=== PATIENT | female | born 1950 | race Caucasian/White ===

== ENCOUNTER 2016-10-19 09:22 | Day surgery (SDC) | payer MEDICARE ==
[~2016-10-19] VITALS: Ht 165.1 cm; Wt 61.4 kg
[2016-10-19 09:41] VITALS: BP 165/96; PULSE 109; RESP 20; TEMP 98.3; O2SAT 96
[2016-10-19] MEDS ORDERED: SODIUM CHLOR 0.9% 1000 ML IV SCH (10:00)
[2016-10-19] MEDS ORDERED: METO25TA3 PO (10:04)
[2016-10-19 10:29] LABS: APTT (PATIENT) 27.6 SEC (24.3-30.1); INTERNATIONAL NORMALIZED RATIO 0.9 RATIO; PROTHROMBIN TIME - PATIENT 10.1 SEC (9.8-11.6)
[2016-10-19 11:00] VITALS: BP 155/85; PULSE 98; RESP 19; O2SAT 98
[2016-10-19] MEDS ORDERED: LIDOCAINE 1%/EPINEPHrine 1:100,000 SOLN 20 ML VIAL ONE (12:12)
[2016-10-19] MEDS ORDERED: MIDAZOLAM HCL 2 MG/2 ML VIAL ONE ×2 (12:34→12:49)
[2016-10-19] MEDS ORDERED: MIDAZOLAM HCL 2 MG/2 ML VIAL IV ONE (13:00)
[2016-10-19 14:07] VITALS: BP 120/71; PULSE 104; RESP 17; TEMP 98.1; O2SAT 93
[2016-10-19 14:22] VITALS: BP 121/71; PULSE 110; RESP 18; O2SAT 98
--- NOTE | 2016-10-19 14:28 | RADRPT ---
EXAM DATE/TIME: 10/19/2016 12:41 [facility] COMPARISON: No previous studies available for comparison. However, the prior abdomen and pelvis CT performed yest ruiz at [facility] was reviewed. INDICATIONS : Omental mass identified on recent abdomen pelvis CT. Patient reports a clinical history of bloating a nd abdominal fullness. SEDATION TIME: 30 minutes BIOPSY SITE: Right MEDICATION(S): 1.) 3 mg fentanyl (Sublimaze) IV 2.) 150 mcg fentanyl (Sublimaze) IV DEVICE(S): 1.) 18 gauge Temno core biopsy needle MEDICAL HISTORY : Hypertension. melanoma SURGICAL HISTORY : None. ENCOUNTER: Initial ACUITY: 1 day PAIN SCORE: 0/10 LOCATION: Right abdomen A total of five core specimen(s) were obtained and sent to the laboratory for pathologic evaluation. PROCEDURE: 1. CT guided abdomen biopsy. 2. Conscious sedation with continuous EKG and oximetry monitoring. 3. EKG and oximetry remained stable throughout the procedure. Prior to the procedure informed consent was obtained. The patient's prior abdomen and pelvis CT was r eviewed. The site was prepped in a sterile fashion. Full sterile technique was used, including cap, mask, michelle rile gloves and gown and a large sterile sheet. Hand hygiene and 2% chlorhexidine and/or betadine/al cohol prep was utilized per protocol for cutaneous antisepsis. The skin and subcutaneous tissues wer e infiltrated with local anesthetic solution. With CT guidance the abnormally thickened omentum was localized. Biopsy was performed using the presc ribed needle as above. Adequate hemostasis was obtained with compression at the puncture site. Follow-up CT scan reveals no hemorrhage or acute abnormality. The patient tolerated the procedure well and there were no complications. The patient was returned to the Radiology Outpatient Unit in stable condition. CONCLUSION: Uncomplicated CT guided biopsy of the abnormally thickened omentum. Ralph Patel MD on October 19, 2016 at 14:25 Board Certified Radiologist. This report was verified electronically.
[2016-10-19 14:52] VITALS: BP 124/74; PULSE 102; RESP 19; O2SAT 99
--- NOTE | 2016-10-19 14:57 | RADRPT ---
EXAM DATE/TIME: 10/19/2016 12:41 [facility] COMPARISON: CT NEEDLE BIOPSY ABDOMEN, October 19, 2016, 12:41. INDICATIONS : Ascites. SEDATION TIME: 30 minutes MEDICATION(S): 1.) 3 mg midazolam (Versed) IV 2.) 150 mcg fentanyl (Sublimaze) IV DEVICE(S): 1.) 6 Fr Rxdw-L-drmmiqsz FLUID: Total volume of 2800 cc of cloudy, red fluid was removed. Fluid was sent for laboratory ordered studies. MEDICAL HISTORY : Hypertension. melanoma SURGICAL HISTORY : None. ENCOUNTER: Initial ACUITY: 1 day PAIN SCORE: 0/10 LOCATION: Abdomen PROCEDURE: 1.) Conscious sedation with continuous EKG and oximetry monitoring. 2.) EKG and oximetry remained stable throughout the procedure. PROCEDURE : 1. CT-guidance for abdominal paracentesis. 2. Paracentesis. The risks, benefits and alternatives to CT-guided paracentesis were explained to the patient in detai l, lay terms including the risk of bleeding and infection. Oral and written informed consent was obt ained. The patient was scanned to select approach for paracentesis. The skin was prepped in sterile fashion . The skin and subcutaneous tissues were infiltrated with Lidocaine solution. A 6 Armenian catheter w as introduced to the peritoneal cavity and ascites was collected. Post procedure scanning reveals no evidence of hematoma or other complication. The patient tolerated the procedure well and left the CT suite in good condition. CONCLUSION: Uncomplicated CT Guided paracentesis with removal of 2.8 L of fluid. Post procedure imaging demonstra anika a small amount of peritoneal fluid remaining. The fluid removed was saved and sent to the lab for evaluation. Ralph Patel MD on October 19, 2016 at 14:24 Board Certified Radiologist. This report was verified electronically.
[2016-10-19 15:22] VITALS: BP 127/73; PULSE 100; RESP 18; O2SAT 99
== END 2016-10-19 15:32 | disposition home or self-care (01) ==
LOC: HRAD 09:22 → HRIP 09:23 → HRAD 15:32
PROVIDERS: ATTEND Internal Medicine Gastroenterology
DX: R18.8 Other ascites (principal); I10 Essential (primary) hypertension; Z85.820 Personal history of malignant melanoma of skin
CPT/HCPCS: 49083; 49180; 77012; 85610; 85730; 88112; 88305; 88341; 88342; 99152; C1729; J2250; J3010; J7030

== ENCOUNTER 2016-10-28 06:15 | Day surgery (SDC) | payer MEDICARE, BC ==
[~2016-10-28] VITALS: Ht 165.1 cm; Wt 59.1 kg
[~2016-10-28 06:15] MED LIST: METO25TA3 PO
[2016-10-28 06:39] VITALS: BP 150/92; PULSE 88; RESP 20; TEMP 97.7; O2SAT 95
[2016-10-28] MEDS ORDERED: VANCOMYCIN 1000 MG/NS 250 ML - implanted port/tunneled catheter IV SCH ×2 (06:45)
[2016-10-28] MEDS ORDERED: SODIUM CHLORIDE 0.9% 1000 ML IV SCH (06:45)
[2016-10-28] MEDS ORDERED: POVIDONE IODINE 5% (ANTISEPSIS KIT) 4 APPLICATIONS EACH NARE SCH (07:00)
[2016-10-28] MEDS ORDERED: CHLORHEXIDINE GLUCONATE 2 % 1 PACK (2 CLOTHS) TOPICAL SCH (07:00)
[2016-10-28] MEDS ORDERED: fentaNYL CITRATE 250 MCG/5 ML AMP ONE (08:07)
[2016-10-28] MEDS ORDERED: MIDAZOLAM HCL 5 MG/5 ML VIAL ONE (08:07)
[2016-10-28] MEDS ORDERED: ceFAZolin 2 GM PREMIX 50 ML ONE (08:07)
[2016-10-28] MEDS ORDERED: LIDOCAINE 1%/EPINEPHrine 1:100,000 SOLN 20 ML VIAL ONE (08:14)
[2016-10-28 08:55] VITALS: BP 109/62; PULSE 83; RESP 18; TEMP 97.6; O2SAT 92
[2016-10-28 09:10] VITALS: BP 115/68; PULSE 84; RESP 18; O2SAT 95
[2016-10-28] MEDS ORDERED: ceFAZolin 2 GM PREMIX 50 ML - implanted port/tunneled catheter insertion IV SCH (09:15)
--- NOTE | 2016-10-28 09:27 | PD.RAD ---
Post Procedure Progress Note Pre Procedure Diagnosis: (1) Cancer Post Procedure Diagnosis: (1) Cancer Procedure Date: Oct 28, 2016 Supervising Radiologist: Silviano Dang Proceduralist/Assist: Mahad Gaston RT(R), RT Judd(R) Anesthesia: Conscious Sedation Plan of Activity Patient to Unit: ROPU Patient Condition: Good See PACS Report for procedural detail/treatment Central Venous Access Device Procedure 1 Right Internal Jugular Infusaport Placement single lumen Silviano Dang MD Oct 28, 2016 09:27
[2016-10-28] MEDS ORDERED: SODIUM CHLORIDE 0.9% FLUSH 5 ML FLUSH IVF PRN (09:30)
--- NOTE | 2016-10-28 09:35 | RADRPT ---
EXAM DATE/TIME: 10/28/2016 08:04 [facility] COMPARISON: No previous studies available for comparison. INDICATIONS : Patient presents with ovarian cancer in need of port placement for chemotherapy treatment. MEDICAL HISTORY : Melanoma HTN Tachcardia SURGICAL HISTORY : Bunion removal Melanoma removal Colonoscopy 2005 ENCOUNTER: Initial ACUITY: 2 weeks PAIN SCORE: 0/10 LOCATION: N/A FLUORO TIME: 0.4 minutes SEDATION TIME: 30 minutes ACCESS: Right internal jugular vein SEDATION: 1.) 3 mg midazolam (Versed) IV 2.) 150 mcg fentanyl (Sublimaze) IV Prophylactic antibiotics were administered with appropriate pre-procedure timing. Vancomycin within 2 hours of procedure, Ancef (or alternative) within 1 hour of procedure. DEVICE: 1. 8 English single lumen Bard Power Port Anesthesia and pain control was provided by the Anesthesia department. PROCEDURE : 1. Continuous pulse oximetry and EKG monitoring. 2. Intravenous conscious sedation. 3. Ultrasound guidance for venous access. 4. Fluoroscopic guided implantable central venous port placement. The patient was placed supine. The neck was prepped in sterile fashion. Full sterile technique was u sed, including cap, mask, sterile gloves and gown, and a large sterile sheet. Hand hygiene and 2% ch lorhexidine Betadine was utilized per protocol for cutaneous antisepsis with appropriate dry time for site. The skin and subcutaneous tissues were infiltrated with local anesthetic solution. Under direct ultrasound guidance, central venous access was accomplished in the targeted vessel. The ultrasound images depicting access guidance were stored and saved to PACS for permanent record. A s ubcutaneous pocket was created using blunt dissection. The port was introduced to the pocket. The c atheter tubing was fed through a subcutaneous tunnel to the venotomy site. The catheter tubing was c ut to a suitable length and then was introduced through a valved Peel-Away sheath and positioned with catheter tubing tip at the cavo-atrial junction level. The pocket incision was closed with subcutic ular Vicryl suture. Steri-Strips were applied. The port was flushed and locked with heparin solutio n per protocol. Sterile dressing was applied to the site. The patient tolerated the procedure well. Conscious sedation was performed with the prescribed dosages and duration as above. The patient michel ated the procedure well and there were no complications. EKG and oximetry remained stable throughout the procedure. The patient was sent to post anesthesia recovery in stable condition. CONCLUSION: Uncomplicated ultrasound and fluoroscopic guided implanted central venous port catheter placement as described in detail above. An 8 English Power port was placed. Silviano Dang MD on October 28, 2016 at 9:33 Board Certified Radiologist. This report was verified electronically.
[2016-10-28 09:40] VITALS: BP 100/58; PULSE 86; RESP 18; O2SAT 94
[2016-10-28 10:10] VITALS: BP 93/54; PULSE 84; RESP 18; O2SAT 95
[2016-10-28 10:40] VITALS: BP 102/62; PULSE 96; RESP 18; O2SAT 95
== END 2016-10-28 10:55 | disposition home or self-care (01) ==
LOC: HROP 06:15 → HRIP 06:16 → HROP 10:55
PROVIDERS: ATTEND Obstetrics & Gynecology Gynecologic Oncology
DX: Z45.2 Encounter for adjustment and management of vascular access device (principal); C56.9 Malignant neoplasm of unspecified ovary; I10 Essential (primary) hypertension
CPT/HCPCS: 36561; 76937; 77001; 99152; 99153; C1788; J0690; J1642; J2250; J3010; J3370; J7030; J7050

== ENCOUNTER 2016-11-01 08:01 | Day surgery (SDC) | payer MEDICARE, BC ==
[2016-11-01 08:45] VITALS: BP 153/83; PULSE 87; RESP 14; TEMP 98; O2SAT 100
--- NOTE | 2016-11-01 12:26 | RADRPT ---
EXAM DATE/TIME: 11/01/2016 08:49 [facility] COMPARISON: No previous studies available for comparison. EXTERNAL COMPARISON : [facility], CT Abdomen, October 18, 2016 INDICATIONS : Evaluate for ascites. MEDICAL HISTORY : Melanoma. Ovarian cancer. SURGICAL HISTORY : Colonoscopy. ENCOUNTER: Initial ACUITY: 1 day PAIN SCORE: 0/10 LOCATION: Bilateral upper quadrant and lower quadrant AREA EVALUATED: Four quadrant. FINDINGS: Imaging of the abdomen and pelvis was performed to evaluate for ascites for possible paracentesis. CONCLUSION: There is no significant ascites present. Michael Li MD FACR on November 01, 2016 at 12:24 Board Certified Radiologist. This report was verified electronically.
== END 2016-11-01 09:30 | disposition home or self-care (01) ==
LOC: HRAD 08:01 → HRIP 08:01 → HRAD 09:30
PROVIDERS: ATTEND Obstetrics & Gynecology Gynecologic Oncology
DX: R18.8 Other ascites (principal)
CPT/HCPCS: 76705

== ENCOUNTER 2016-11-24 09:47 | Day surgery (SDC) | payer MEDICARE, BC ==
--- NOTE | 2016-11-24 11:43 | RADRPT ---
EXAM DATE/TIME: 11/24/2016 10:27 [facility] COMPARISON: US ABDOMEN - LOWER LIMITED, November 01, 2016, 8:49. INDICATIONS : Abdominal distention, ascites. MEDICAL HISTORY : Ovarian cancer. Ascites. Melanoma. Hypertension. Tachycardia. SURGICAL HISTORY : Paracentesis. Melanoma removal. Bunion removal. Colonoscopy. ENCOUNTER: Subsequent ACUITY: 1 week PAIN SCORE: 1/10 LOCATION: Abdomen. AREA EVALUATED: Abdomen quadrants. FINDINGS: Imaging of the abdomen and pelvis was performed to evaluate for ascites for possible paracentesis. CONCLUSION: Only trace ascites remains, not enough for safe paracentesis. Michael Li MD FACR on November 24, 2016 at 11:41 Board Certified Radiologist. This report was verified electronically.
== END 2016-11-24 12:30 | disposition home or self-care (01) ==
LOC: HRAD 09:47 → HRIP 09:51 → HRAD 12:30
PROVIDERS: ATTEND Obstetrics & Gynecology Gynecologic Oncology
DX: R18.8 Other ascites (principal)
CPT/HCPCS: 76705

== ENCOUNTER 2017-01-20 10:21 | Inpatient (IN) | payer MEDICARE, BC ==
[~2017-01-20] VITALS: Ht 166.4 cm; Wt 56.9 kg
[~2017-01-20 10:21] MED LIST changes: -DEXA4TAB PO; -METO10TA PO; -OMEP20TA PO; -ONDA1TAB17 PO; -OXYC1TAB63 PO
[2017-01-20] MEDS ORDERED: OMEP20TA PO (10:50)
[2017-01-20] MEDS ORDERED: DEXA4TAB PO (10:50)
[2017-01-20] MEDS ORDERED: ONDA1TAB17 PO (10:50)
[2017-01-20] MEDS ORDERED: METO10TA PO (10:50)
[2017-02-03] MEDS ORDERED: METOPROLOL TARTRATE 25 MG TAB PO PRN (06:00)
[2017-02-03] MEDS ORDERED: CHLORHEXIDINE GLUCONATE 2 % 1 PACK (2 CLOTHS) TOPICAL PRN (06:00)
[2017-02-03] MEDS ORDERED: LEVOFLOXACIN 500 MG PREMIX INJ 100 ML IV SCH (06:00)
[2017-02-03] MEDS ORDERED: METRONIDAZOLE 500 MG/100 ML ISONTONIC SOLN IV SCH (06:00)
[2017-02-03] MEDS ORDERED: SODIUM CHLORID 0.9% 500 ML IV PRN (06:00)
[2017-02-03] MEDS ORDERED: HEPARIN SODIUM - SQ 10,000 UNITS/ML VIAL SQ SCH (06:00)
[2017-02-03] MEDS ORDERED: LACTATED RINGER'S 1000 ML IV PRN (06:00)
[2017-02-03] MEDS ORDERED: INSULIN HUMAN REGULAR 1,000 UNITS/10 ML VIAL SQ PRN (06:00)
[2017-02-03] MEDS ORDERED: POVIDONE IODINE 5% (ANTISEPSIS KIT) 4 APPLICATIONS EACH NARE PRN (06:00)
[2017-02-03 06:20] VITALS: BP 156/86; PULSE 87; RESP 18; TEMP 98.3; O2SAT 100
[2017-02-03] MEDS ORDERED: MIDAZOLAM HCL 2 MG/2 ML VIAL ONE (07:14)
[2017-02-03] MEDS ORDERED: DEXAMETHASONE SOD PHOS 4 MG/ML VIAL ONE (07:14)
[2017-02-03] MEDS ORDERED: FAMOTIDINE 20 MG/2 ML VIAL ONE (07:15)
[2017-02-03] MEDS ORDERED: APREPITANT 40 MG CAP ONE (07:15)
[2017-02-03] MEDS ORDERED: ACETAMINOPHEN 1000 MG/100 ML VIAL IV ONE (07:19)
[2017-02-03] MEDS ORDERED: HYDROmorphone HCL PF 2 MG/ML VIAL ONE (07:19)
[2017-02-03] MEDS ORDERED: LIDOCAINE 1%/EPINEPHrine 1:100,000 SOLN 50 ML VIAL INFIL ONE (08:00)
[2017-02-03] MEDS ORDERED: PROPOFOL 200 MG/20 ML AMP IV ONE (09:12)
[2017-02-03] MEDS ORDERED: NEOSTIGMINE 3 MG/3 ML SYR IV ONE (09:12)
[2017-02-03] MEDS ORDERED: PHENYLEPH/NS 1000 MCG/10 ML SYR IV ONE (09:13)
[2017-02-03] MEDS ORDERED: ONDANSETRON HCL 4 MG/2 ML VIAL IV PUSH ONE (09:13)
[2017-02-03] MEDS ORDERED: LACTATED RINGER'S 1000 ML INJ 3,000 ML IV ONE (09:14)
[2017-02-03] MEDS ORDERED: METHYLENE BLUE 100 MG/10 ML VIAL OTHER ONE (09:52)
[2017-02-03] MEDS ORDERED: fentaNYL CITRATE 250 MCG/5 ML AMP IV ONE (12:00)
[2017-02-03] MEDS: D5-1/2 NS + KCL 20 MEQ INJ 1,000 ML IV SCH ×2 (12:40→22:40)
[2017-02-03] MEDS ORDERED: oxyCODONE/ACETAMINOPHEN 5 MG/325 MG TAB PO PRN ×2 (12:45)
[2017-02-03] MEDS ORDERED: ONDANSETRON HCL 4 MG/2 ML VIAL IVP PRN (12:45)
[2017-02-03] MEDS ORDERED: SODIUM CHLORIDE 0.9% FLUSH 10 ML FLUSH IV FLUSH PRN (12:45)
[2017-02-03] MEDS ORDERED: diphenhydrAMINE HCL 25 MG CAP PO PRN (12:45)
[2017-02-03] MEDS ORDERED: LORazepam 0.5 MG TAB PO PRN (12:45)
[2017-02-03] MEDS: KETOROLAC TROMETHAMINE 30 MG/ML (IVP) VIAL IVP SCH ×2 (13:00→18:39)
[2017-02-03] MEDS ORDERED: DO NOT ADM ANY ANTICOAGULANT DRUGS PRN (13:30)
[2017-02-03] MEDS ORDERED: *ONDANSETRON 4 MG VIAL PERIprocedural Use ONLY ONE (15:19)
[2017-02-03] MEDS: METOCLOPRAMIDE HCL 10 MG TAB PO SCH (17:00)
--- NOTE | 2017-02-03 17:04 | PD.ONC.PN ---
Subjective Subjective Remarks post op note pt resting in bed with some nausea one episode of vomiting..liquid small amount denies any pain Objective Data Date Time Temp Pulse Resp B/P Pulse Ox O2 Delivery O2 Flow Rate FiO2 02/03/17 15:55 97.0 93 20 131/71 99 Room Air 02/03/17 15:00 93 20 131/71 99 Room Air 02/03/17 14:00 75 20 132/72 99 Room Air 02/03/17 13:45 74 20 130/68 98 Room Air 02/03/17 13:30 79 20 132/64 98 Room Air 02/03/17 13:15 77 20 143/66 99 Room Air 02/03/17 13:00 77 20 123/58 99 Room Air 02/03/17 12:45 90 20 113/62 99 Room Air 02/03/17 12:33 96.9 90 20 112/59 100 Nasal Cannula 2 02/03/17 06:20 98.3 87 18 156/86 100 02/03/17 02/03/17 02/03/17 07:00 15:00 23:00 Intake Total 3000 ml 136 ml Output Total 675 ml 200 ml Balance 2325 ml -64 ml Laboratory Results Laboratory Tests Test 02/03/17 06:20 Blood Type O POSITIVE Antibody Screen NEGATIVE Blood Bank Comment Administered Medications Medications (Trade) Dose Ordered Sig/Olivier Route PRN Reason Start Time Stop Time Status Last Admin Dose Admin Lactated Ringer's (Lr 1000 ml Inj) 1,000 ml @ 30 mls/hr Q24H PRN IV SEE LABEL COMMENTS 02/03/17 06:00 02/06/17 05:59 02/03/17 06:20 Metoclopramide HCl 10 mg 10 mg TIDAC PO 02/03/17 17:00 02/03/17 17:00 Potassium Chloride/Dextrose/ Sod Cl (D5-1/2 NS + KCl 20 Meq Inj) 1,000 ml @ 100 mls/hr Q10H IV 02/03/17 12:40 02/03/17 12:40 Ketorolac Tromethamine (Toradol Inj) 15 mg Q6H IVP 02/03/17 13:00 02/04/17 07:01 02/03/17 13:00 Objective Remarks GENERAL: Well-nourished, well-developed patient. SKIN: Warm and dry. HEAD: Normocephalic. EYES: No scleral icterus. No injection or drainage. CARDIOVASCULAR: Regular rate and rhythm without murmurs. RESPIRATORY: Breath sounds equal bilaterally. No accessory muscle use. GASTROINTESTINAL: Abdomen soft, non-tender, nondistended. SS are c/d/i EXTREMITIES: teds and scds MUSCULOSKELETAL: Adequate muscle tone. PSYCHIATRIC: Appropriate mood and affect; insight and judgment normal. Assessment/Plan Problem List: (1) Post-operative state Status: Acute Plan: post op orders in chart SIMRANT vito and james for nausea and vomiting valentino to be d/c'd in am pain meds per EMR anticipate d/c in next 24 hours Edita Rosas Feb 03, 2017 17:04
[2017-02-03 20:00] VITALS: BP 115/61; PULSE 100; RESP 20; TEMP 98.9; O2SAT 97
[2017-02-03] MEDS: METOPROLOL TARTRATE 25 MG TAB PO SCH (20:32)
[2017-02-03] MEDS: SODIUM CHLORIDE 0.9% FLUSH 10 ML FLUSH IV FLUSH SCH (20:36)
[2017-02-04] VITALS: BP 104/64; PULSE 84; RESP 17; TEMP 99.2; O2SAT 98
[2017-02-04] MEDS: KETOROLAC TROMETHAMINE 30 MG/ML (IVP) VIAL IVP SCH ×2 (00:51→06:17)
[2017-02-04 04:00] VITALS: BP 99/58; PULSE 86; RESP 18; TEMP 98.1; O2SAT 98
[2017-02-04 07:10] LABS: AUTOMATED NEUTROPHIL # 9.6 TH/MM3 (1.8-7.7); BASOPHIL % 0.4 % (0.0-2.0); EOSINOPHIL % 0.1 % (0.0-4.0); HEMATOCRIT 29.6 % (35.0-46.0); LYMPH % 10.7 % (9.0-44.0); LYMPHOCYTE # 1.3 TH/MM3 (1.0-4.8); MEAN CELL VOLUME 100.7 FL (80.0-100.0); MEAN CORPUSCULAR HEMOGLOBIN 34.5 PG (27.0-34.0); MEAN CORPUSCULAR HGB CONC 34.2 % (32.0-36.0); MONO % 6.7 % (0.0-8.0); NEUT % 82.1 % (16.0-70.0); PLATELET COUNT 218 TH/MM3 (150-450); RED BLOOD COUNT 2.94 MIL/MM3 (4.00-5.30); RED CELL DISTRIBUTION WIDTH 21.2 % (11.6-17.2); WHITE BLOOD COUNT 11.7 TH/MM3 (4.0-11.0)
[2017-02-04 07:20] LABS: HEMO FLAGS AUTO DIFF
[2017-02-04] MEDS ORDERED: OXYC1TAB63 PO (07:39)
[2017-02-04 07:51] LABS: BICARBONATE 27.3 MEQ/L (21.0-32.0); POTASSIUM 3.8 MEQ/L (3.5-5.1)
[2017-02-04 08:13] LABS: SCAN/DIFF AUTO DIFF CONFIRMED
[2017-02-04] MEDS: D5-1/2 NS + KCL 20 MEQ INJ 1,000 ML IV SCH (08:40)
[2017-02-04] MEDS ORDERED: ACETAMINOPHEN 325 MG TAB PO PRN (08:45)
[2017-02-04 08:48] VITALS: BP 121/58; PULSE 93; RESP 16; TEMP 97.9; O2SAT 97
[2017-02-04] MEDS ORDERED: PANTOPRAZOLE SOD 20 MG DELAYED RELEASE TAB PO SCH (09:00)
[2017-02-04] MEDS: SODIUM CHLORIDE 0.9% FLUSH 10 ML FLUSH IV FLUSH SCH (09:00)
[2017-02-04] MEDS: METOPROLOL TARTRATE 25 MG TAB PO SCH (09:11)
[2017-02-04] MEDS: METOCLOPRAMIDE HCL 10 MG TAB PO SCH (09:11)
--- NOTE | 2017-02-06 15:23 | MP ---
cc: NEWTON RIVERA MD, JESSY M.D. DHAND, ARUN M.D. DATE OF SURGERY 02/03/2017 PREOPERATIVE DIAGNOSIS 1. Ovarian cancer. 2. Status post neoadjuvant Taxol, carboplatin chemotherapy x four. POSTOPERATIVE DIAGNOSIS 1. Ovarian cancer. 2. Status post neoadjuvant Taxol, carboplatin chemotherapy x four. PROCEDURE Robotic-assisted laparoscopic hysterectomy, bilateral salpingo-oophorectomy, resection of pelvic tumor, partial omentectomy, lysis of adhesions. SURGEON Newton Rivera MD COACH TOUR DRIVER [employer] surgical first assistant ANESTHESIA General endotracheal anesthesia. ESTIMATED BLOOD LOSS 300 cc. IV FLUIDS 2800 cc. URINE OUTPUT 800 cc. HISTORY This is a 66-year-old female with biopsy-proven ovarian cancer, extensive intraperitoneal carcinomatosis ,ascites, omental tumor, biopsy of the omentum confirmed diagnosis. She was started on neoadjuvant chemotherapy. Her initial CA-125 value was elevated at 1104 and actually elevated beyond that prior to starting treatment. Actually, was 1154 prior to starting treatment. CA-125 improved significantly with each chemotherapy infusion and her most recent CA-125 preoperatively was 22.3. Furthermore, on physical examination there has been improvement in the pelvic and abdominal disease significantly, improvement in symptomatology. She was counseled regarding the potential value of interval surgery and presents now for that endeavor. She is seen again in the preop holding area were again the findings are reviewed, the plan of action is discussed. Questions answered. She expressed good understanding and wished to proceed. FINDINGS In the peritoneal cavity there had been substantial response to chemotherapy. There were many areas in the peritoneal cavity that suggested prior tumor that had responded to treatment, remaining with filmy adhesions or small subtle implants. The ovaries were fixed to the pelvic sidewall bilaterally, partially retroperitonealized. There was thickened peritoneum throughout with thickened peritoneum on the vesicouterine fold as well as the posterior peritoneum and cul-de-sac suggesting prior presence of significant tumor responding significantly to chemotherapy. In the abdomen the omentum was largely attenuated. It had previously been replaced with tumor and the tumor and retracted with chemotherapy resulting in minimal residual fat or minimal residual identifiable omental tissue. The tissue that was dependent from the transverse colon of the omentum was able to be resected. At both the start of the case there were no overt mass effect, the ovaries were prominent but not substantially enlarged and there were no other significant masses or nodules within the peritoneal cavity. There was no appreciably enlarged retroperitoneal adenopathy. At the conclusion of the case what remained was multifocal visceral and parietal peritoneal implants ranging from 1-5 mm. There was a collection of these implants on the wall of the bowel, large bowel along the attachment site of the omentum which as described above was largely attenuated. There are implants in the gastrocolic ligament. There was a collection of implants, thin plaque in mesentery of the ileocecal region and there were small implants throughout the remaining peritoneal surfaces, many of which are showing signs of significant response to chemotherapy. Some adhesions were taken down, some adhesions persisted, none were contributing to any compromise to the bowel or showing any suggestion of obstruction. STATEMENT OF COMPLEXITY The complexly this case was significantly increased due to extensive intraperitoneal and pelvic adhesions requiring significant amount of time to in lysis of adhesions to gain access to accomplish surgical objectives and restore normal anatomy and the modifier should be applied accordingly. PROCEDURE IN DETAIL The patient taken to operating room, placed in dorsal lithotomy position after general endotracheal anesthesia was administered time-out was undertaken. The patient was identified by sight recognition and hospital ID bracelet and the proposed procedure was reviewed and confirmed. She was carefully positioned in padded Derrell stirrups. Her arms were padded and secured to the sides. She was further secured to the operating table with egg crate padding and tape in a cross chest over the shoulder fashion. All sites noted to be properly aligned with no malalignments or pressure points. She was prepped in sterile fashion, draped below the waist, placed in high lithotomy position, cervix grasped, uterine cavity sounded to 6 cm. Large VCare manipulator inserted and secured in usual fashion. Dougherty catheter placed in the bladder. She returned to low lithotomy position, change of sterile gloves was undertaken. We completed draping anticipation of laparoscopy. After confirming that an orogastric tube was in the stomach on suction with manual elevation of the abdominal wall and direct laparoscopic visualization 5 mm cannula introduced into the left upper abdomen. Carbon dioxide gas was insufflated and an atraumatic entry was confirmed. 8 mm cannula placed in the right upper quadrant, long grasper was used to assess the anatomy. She was placed in Trendelenburg position and the anatomical findings were as described above. 12 mm cannula placed in the midline above the umbilicus, 8 mm cannula placed in the left upper abdomen, original 5 exchanged for a 8-mm cannula. Peritoneal washings were obtained for cytology. Three Ray-Justice sponges were placed around the root of the small bowel mesentery as the bowel was folded back on its mesenteric root. Robotic system brought into the operative field, attached in the usual fashion. Monopolar scissors, fenestrated bipolar forceps and ProGrasp manipulators were placed in arms #1, 2 and 3 respectively and I took my place at the surgeon's console. Extensive lysis of adhesion was required to gain access to the pelvis to mobilize the ovaries that were fixed to the pelvic sidewall partially retroperitonealized and to establish a rectovaginal septum and take down the bladder flap. The right round ligament was identified, cauterized and transected as the anterior and posterior leafs of the broad ligament were opened. Retroperitoneal dissection was carried out. A window was in the peritoneum was identified below the right utero-ovarian ligament. The peritoneum was opened and dissection was carried out proximally as the infundibulopelvic ligament was isolated and elevated, isolated to the level of the pelvic brim where the infundibulopelvic ligament was cauterized and transected. Additional dissection posteriorly was used to open the peritoneum on the right side of the uterus and cervix and the dissection of the scar tissue and vesicouterine peritoneum was dissected off the lower uterine segment as the plaque of tumor was elevated and included in the hysterectomy specimen. The right uterine vessels were skeletonized and cauterized. Attention was directed toward the left side where additional lysis of adhesion was carried out. Mobilization of the ovary was required as it was stuck to the overlying bowel and mesentery. Left round ligament was isolated, cauterized and transected and the anterior and posterior leafs of the broad ligament were opened and the descending colon was mobilized as it could gain access to the retroperitoneal structures. Further retroperitoneal dissection allowed identification of the infundibulopelvic ligament. A window was made in the peritoneum below the left utero-ovarian ligament. Dissection was carried out proximally as the infundibulopelvic ligament was dissected proximally as on the contralateral side to retract the ureter posteriorly as the infundibulopelvic ligament was elevated and isolated to the level of the pelvic brim where it was cauterized and transected. Posterior dissection was carried out to further establish the rectovaginal septum and open the posterior peritoneum and the left vesicouterine peritoneum was dissected off the lower uterine segment and cervix as the thickened peritoneum and tumor plaque was elevated and dissected and included with the hysterectomy specimen. Left uterine vessels were skeletonized, cauterized and transected as were the cardinal, paracervical and uterosacral ligaments, thereby freeing the attachments along the left side of the uterus and cervix. Now the right uterine vessels were transected and the cardinal, paracervical and uterosacral ligaments were isolated, cauterized and transected thereby freeing the attachments along the right side of the uterus and cervix. A circumferential colpotomy was performed and the specimen was withdrawn transvaginally which included uterus, cervix, tubes and ovaries and any attached peritoneal or implants of tumor and the pneumo-occluder balloon was placed in the vagina to maintain pneumoperitoneum. Vaginal cuff was closed. Instruments 1 and 3 exchanged for needle drivers as a 0 Vicryl suture was introduced. Closure started at the left corner, full-thickness closure through the vaginal tissue, posterior uterosacral ligament, posterior peritoneum, tied via instrument tie. Closure was held on counter traction as a running full-thickness closure was carried across the vaginal apex to the contralateral corner where it was similarly fixed, tied and secured. The needle was cut and removed. Pelvis was thoroughly irrigated. Small bleeders rendered hemostatic with bipolar cautery. The integrity of the bladder was confirmed by filling the bladder with saline dyed with methylene blue. The bladder distended under pressure. There were no areas of blue to suggest thinning of the bladder. No extravasation of dye. There was a good margin between the vaginal cuff suture line and the bladder edge, good peristalsis of urine in the ureters bilaterally and bladder was drained. Attention was redirected to the abdomen, instruments 1 and 3 were stained for tissue graspers as manipulation to inspect the anatomy was carried out with findings as described above. There was essentially no bulky disease or burdensome disease amenable to surgical resection. There were two areas of the omentum that could be identified with some persistent tissue dependent from the transverse colon, this was in the left upper quadrant and in the mid transverse colon, these areas were isolated. Nonvascular attachments taken down with sharp dissection. Vascular pedicles were isolated, cauterized with bipolar cautery and transected. This was first carried out in the left upper quadrant and the specimen was placed in the right pelvis for later retrieval. Inspection along the transverse colon revealed another area of visible omentum as similarly nonvascular attachments were taken down with sharp dissection vascular attachments were isolated, cauterized and transected and this segment of omentum was placed in the right pelvis for later retrieval. Inspection of the remaining anatomy with findings as described above, multifocal small miliary tumor implants without any bulky or burdensome disease. The implants not amenable to surgical resection due to the anatomical location and the diffuse nature consistent with ovarian cancer but implants ranging in size no greater than 5 mm. Most of them in the 2-3 mm range. It was felt that all reasonable surgical objectives had been completed. Therefore, the robotic instruments were removed. The robotic system was disengaged from the operative field. I reentered the bedside under sterile condition. 12 cm EndoCatch bag was used to capture the omental specimens which were removed through the 12-mm cannula and then each of the three Ray-Justice sponges that had been placed in the peritoneal cavity were removed. Each were removed individually and inspected and noted to be removed in their entirety. All sites were noted to be satisfactorily hemostatic. Hemostatic Michelle powder was placed in the dissection bed of the pelvis and across the vaginal cuff. There were no remaining foreign objects in the peritoneal cavity. Preliminary counts were correct. 12 mm fascial defect was closed with 0 Vicryl sutures using a needle pass apparatus, tied securely which rendered the fascia completely airtight and hemostatic. The remaining cannulas were withdrawn. Carbon dioxide gas was removed from the peritoneum, 3-0 Vicryl subcutaneous, 3-0 Vicryl subcuticular and Steri-Strips were used to close these incisions. She was returned to dorsal lithotomy position. Pelvic exam confirmed the vaginal cuff was well-supported, suture line intact. There were no vaginal lacerations. No remaining foreign objects in the vagina. Final counts were correct. She was returned to dorsal supine position and was pending reversal of anesthesia when I left the operating room to precede her to the Post Anesthesia Care Unit. MD ZOE Wright/ALONSO /7:48 AM /2:44 PM
--- NOTE | 2017-02-08 12:02 | MD ---
cc: NEWTON BZAAN MD, JESSY M.D. DHAND, ARUN M.D. ADMISSION DATE: 02/03/2017 DISCHARGE DATE: 02/04/2017 PROCEDURE 02/03/2017 robotic-assisted laparoscopic hysterectomy bilateral salpingo-oophorectomy, resection of pelvic tumor, partial omentectomy, lysis of adhesions. DIAGNOSIS 1. Ovarian cancer. 2. Status post neoadjuvant Taxol, carboplatin chemotherapy. OBJECTIVE Ins and outs 4518/2125. LABORATORY DATA Postop day #1, H&H 10.1 and 29.6 white count 11.7, platelets 218. Electrolytes pending. PHYSICAL EXAMINATION VITAL SIGNS Afebrile, pulse 75-100, respirations 17-20, blood pressure 99 to 132 over 58 to 72, o2 saturations greater than equal to 98%. IN GENERAL: Alert and oriented x3 in no acute distress. LUNGS: Clear mild rales at the eight at the bases. CARDIOVASCULAR SYSTEM: Regular rate and rhythm. ABDOMEN: Soft. Incisions clean and dry. Minimal ecchymosis. GYNECOLOGY: No bleeding. EXTREMITIES: Nontender SCDs intact. ASSESSMENT Postop day #1 doing well in early postoperative period. Hemodynamically stable, tolerating oral intake, Dougherty catheter has been removed, voiding is pending. FINDINGS AT THE TIME OF SURGERY: Reviewed activities restrictions discussed many questions were asked and answered by her and her family, to the best my capacity. They expressed good understanding. PLAN Anticipate the discharge to home. She is to contact our office to schedule follow up in 2 weeks. She is to resume prior medications prescription will be provided for Percocet and she is to contact our office should she have any questions or problems between now and the time of scheduled follow up. MD ZOE Wright/suresh /7:44 AM /11:55 AM
== END 2017-02-04 09:43 | disposition home or self-care (01) | DRG 737 ==
LOC: HSDI 02-03 05:21 → HOCB 02-03 15:57
PROVIDERS: ADMIT Obstetrics & Gynecology Gynecologic Oncology; ATTEND Obstetrics & Gynecology Gynecologic Oncology
PROC: 0UTC7ZZ Resection of Cervix, Via Natural or Artificial Opening (ICD-10-PCS; 2017-02-03)
PROC: 0UT2FZZ Resection of Bilateral Ovaries, Via Natural or Artificial Opening With Percutaneous Endoscopic Assistance (ICD-10-PCS; 2017-02-03)
PROC: 0UT7FZZ Resection of Bilateral Fallopian Tubes, Via Natural or Artificial Opening With Percutaneous Endoscopic Assistance (ICD-10-PCS; 2017-02-03)
PROC: 0UN24ZZ Release Bilateral Ovaries, Percutaneous Endoscopic Approach (ICD-10-PCS; 2017-02-03)
PROC: 0DBS4ZZ (ICD-10-PCS; 2017-02-03)
PROC: 8E0W4CZ Robotic Assisted Procedure of Trunk Region, Percutaneous Endoscopic Approach (ICD-10-PCS; 2017-02-03)
PROC: 0UT9FZZ Resection of Uterus, Via Natural or Artificial Opening With Percutaneous Endoscopic Assistance (ICD-10-PCS; principal; 2017-02-03 07:23)
DX: C56.9 Malignant neoplasm of unspecified ovary (principal); C78.6 Secondary malignant neoplasm of retroperitoneum and peritoneum; N73.6 Female pelvic peritoneal adhesions (postinfective); Z92.21 Personal history of antineoplastic chemotherapy; I10 Essential (primary) hypertension; K21.9 Gastro-esophageal reflux disease without esophagitis; R11.2 Nausea with vomiting, unspecified
CPT/HCPCS: 36591; 80048; 85025; 86850; 86900; 86901; 88112; 88305; 88307; 94150; J0131; J1100; J1170; J1642; J1644; J1885; J2250; J2370; J2405; J2710; J3010; J3480; J7120; J8501

== ENCOUNTER → 2017-01-20 | Outpatient (CLI) | payer MEDICARE, BC ==
[~2017-01-20] MED LIST changes: +DEXA4TAB PO; +METO10TA PO; +OMEP20TA PO; +ONDA1TAB17 PO; +OXYC1TAB63 PO
--- NOTE | 2017-01-20 12:04 | RADRPT ---
EXAM DATE/TIME: 01/20/2017 11:54 [facility] COMPARISON: No previous studies available for comparison. INDICATIONS : Evaluate for pneumonia, pneumothorax and communicable diseases. Pre-op hysterectomy MEDICAL HISTORY : Hypertension. Ovarian Cancer SURGICAL HISTORY : Infusaport ENCOUNTER: Initial ACUITY: 1 day PAIN SCORE: 0/10 LOCATION: chest FINDINGS: PA and lateral views of the chest demonstrate the lungs to be symmetrically aerated without evidence of mass, infiltrate or effusion. The cardiomediastinal contours are unremarkable. Osseous structure s are intact. CONCLUSION: Normal examination. Right-sided Ljxbdn-j-Rvov catheter with its tip overlying the SVC. Daniel Loomis MD on January 20, 2017 at 12:03 Board Certified Radiologist. This report was verified electronically.
== END ==
LOC: CPRE 10:17
PROVIDERS: ATTEND Obstetrics & Gynecology Gynecologic Oncology
DX: Z01.818 Encounter for other preprocedural examination (principal); C56.9 Malignant neoplasm of unspecified ovary
CPT/HCPCS: 36591; 71020; 80048; 85007; 85027; 93005; J1642

== ENCOUNTER 2017-07-18 23:55 | Inpatient (IN) | payer MEDICARE, BC ==
[~2017-07-18] VITALS: Ht 165.1 cm; Wt 57.0 kg
[~2017-07-18 23:55] MED LIST changes: +DEXA4TAB PO; +METO10TA PO; +OMEP20TA PO; +ONDA1TAB17 PO; +OXYC1TAB63 PO
[2017-07-18 23:56] VITALS: BP 157/82; PULSE 120; RESP 16; TEMP 98.9; O2SAT 96
[2017-07-19] VITALS (10 sets, daily range): BP systolic 128–156; BP diastolic 65–87; PULSE 103–125; RESP 16–18; TEMP 97–99.3; O2SAT 96–99
--- NOTE | 2017-07-19 01:34 | PD ---
HPI Chief Complaint: Abdominal Pain Time Seen by Provider: 01:42 Travel History International Travel<30 days: No Contact w/Intl Traveler<30days: No Traveled to known affect area: No History of Present Illness HPI 66-year-old female presents to the emergency department by private transportation the care of her spouse for evaluation of vomiting with recent diagnosis of small bowel obstruction. Patient is under the care of Dr. Rivera for diagnosis of ovarian cancer status post chemotherapy and surgical intervention with hysterectomy bilateral salpingo-oophorectomy and omentectomy. Patient is been doing fairly well until the last week noticed intermittent nausea with abdominal discomfort with ongoing flatus. Patient's had poor oral intake since . Patient continued to feel poorly so saw her oncologist on Tuesday in the afternoon and CT abdomen and pelvis with contrast along with a CT of the chest was ordered and patient was identified to have a bowel obstruction. This was discussed with her oncologist office as well as with the patient. According to her providing physician she was encouraged to go to the emergency room if she had any vomiting or worsening of symptoms and this evening vomited stomach contents 2 without hematemesis coffee-ground emesis bilious emesis and has had no melena hematochezia. Patient also denies fever or chills. Due to vomiting episodes decided to come to the emergency room for evaluation. Patient brings her CT imaging studies with her on disc and report identifies multiple dilated loops of small bowel consistent with small bowel obstruction transition not confirmed that suspicious for mid to distal ileum this was discussed with patient's managing oncologist and the patient herself and also identified to have nodularity concerning for peritoneal metastasis to the mesentery minimal ascites degenerative changes and scoliosis of the lumbar spine and liver areas of decreased attenuation is recommended MRI of the abdomen and pelvis. Patient is unable to identify exacerbating or alleviating factors. Patient rates current discomfort as minimal. Patient very concerned about dehydration. PFSH Past Medical History Narrative Medical Ovarian cancer melanoma hysterectomy bilateral salpingo-oophorectomy, therapy tachycardia hypertension right [id number]; no tobacco use: Nursing notes reviewed Heart Rhythm Problems: No Cancer: Yes (melanoma, ovarian) Cardiovascular Problems: Yes (TACHYCARDIA) High Cholesterol: No Chemotherapy: Yes Chest Pain: No Congestive Heart Failure: No Diabetes: No Endocrine: No Gastrointestinal Disorders: Yes (acid reflux r/t chemo ) GERD: No Genitourinary: No Hepatitis: No Hiatal Hernia: No Hypertension: Yes Immune Disorder: No Implanted Vascular Access Dvce: Yes Kidney Stones: No Musculoskeletal: No Neurologic: No Psychiatric: No Reproductive: No Respiratory: No Radiation Therapy: No Renal Failure: No Thyroid Disease: No Ulcer: No Past Surgical History Abdominal Surgery: No AICD: No Arteriovenous Shunt: No Body Medical Devices: right upper chest port Cardiac Surgery: No Ear Surgery: No Endocrine Surgery: No Eye Surgery: No Genitourinary Surgery: No Gynecologic Surgery: Yes (biopsy of the omentum, hysterectomy ) Insulin Pump: No Joint Replacement: No Oral Surgery: No Pacemaker: No Thoracic Surgery: Yes (right upper chest port) Other Surgery: Yes Social History Alcohol Use: Yes (2 GLASSES NIGHTLY) Tobacco Use: No Substance Use: Yes (wine a few times a week) Allergies-Medications (Allergen,Severity, Reaction): Coded Allergies: penicillin G (Unverified Allergy, Severe, Diarrhea, 07/19/17) Reported Meds & Prescriptions Reported Meds & Active Scripts Active Oxycodone-Acetaminophen 5-325 mg Tab 1 Tab PO Q4H PRN Reported Dexamethasone 4 Mg Tab 4 Mg PO DIRECTED Omeprazole 20 Mg Tab 20 Mg PO DAILY Ondansetron (Ondansetron HCl) 8 Mg Tab 8 Mg PO TID Metoclopramide (Metoclopramide HCl) 10 Mg Tab 10 Mg PO TIDAC Metoprolol Tartrate 25 Mg Tab 25 Mg PO BID Review of Systems Except as stated in HPI: all other systems reviewed are Neg General / Constitutional: No: Fever, Chills HENT: No: Congestion Cardiovascular: No: Chest Pain or Discomfort Gastrointestinal: Positive: Nausea, Vomiting (x2), Abdominal Pain, No: Hematemesis, Hematochezia Genitourinary: No: Dysuria, Flank Pain Musculoskeletal: No: Myalgias, Arthralgias Skin: No Rash Neurologic: Positive: Weakness Psychiatric: Positive: Anxiety Hematologic/Lymphatic: No: Lymph Node Enlargement Physical Exam Narrative GENERAL: Thin female in no acute distress no respiratory distress SKIN: Warm and dry. HEAD: Normocephalic. EYES: No scleral icterus. No injection or drainage. NECK: Supple, trachea midline. No JVD or lymphadenopathy. CARDIOVASCULAR: Regular rate and rhythm without murmurs, gallops, or rubs. RESPIRATORY: Breath sounds equal bilaterally. No accessory muscle use. GASTROINTESTINAL: Abdomen soft, non-tender, mildly distended. MUSCULOSKELETAL: No cyanosis, or edema. BACK: Nontender without obvious deformity. No CVA tenderness. Data Data Last Documented VS Vital Signs Date Time Temp Pulse Resp B/P (MAP) Pulse Ox O2 Delivery O2 Flow Rate FiO2 07/19/17 04:00 119 16 141/87 (105) 98 Room Air 07/18/17 23:56 98.9 Orders Orders Complete Blood Count With Diff (07/19/17 01:42) Comprehensive Metabolic Panel (07/19/17 01:42) Lipase (07/19/17 01:42) Lactic Acid (07/19/17 01:42) Prothrombin Time / Inr (Pt) (07/19/17:42) Act Partial Throm Time (Ptt) (07/19/17 01:42) Urinalysis - C+S If Indicated (07/19/17 01:42) Iv Access Insert/Monitor (07/19/17 01:42) Ecg Monitoring (07/19/17 01:42) Oximetry (07/19/17 01:42) Ondansetron Inj (Zofran Inj) (07/19/17 01:45) Sodium Chlor 0.9% 1000 Ml Inj (Ns 1000 M (07/19/17 01:42) Sodium Chloride 0.9% Flush (Ns Flush) (07/19/17 01:45) Electrocardiogram (07/19/17 01:42) Chest, Single Ap (07/19/17 01:42) Sodium Chlor 0.9% 1000 Ml Inj (Ns 1000 M (07/19/17 01:45) Blood Culture (07/19/17 01:42) Ng Gastric Tube Insert/Monitor (07/19/17 02:33) Insert Ng Tube For Feeding (07/19/17 02:33) Lidocaine 2% Viscous (Xylocaine 2% Visco (07/19/17 02:45) Potassium Chlor 10 Meq Premix (Kcl 10 Me (07/19/17 04:00) Admit To Inpatient (07/19/17 ) Vital Signs (Adult) Q4H (07/19/17 04:00) Activity Bed Rest (07/19/17 04:00) Job Press Feeder / Telemetry .CONTINUOUS (07/19/17 04:00) Diet Npo (07/19/17 Breakfast) Sodium Chlor 0.9% 1000 Ml Inj (Ns 1000 M (07/19/17 04:00) Sodium Chloride 0.9% Flush (Ns Flush) (07/19/17 04:00) Sodium Chloride 0.9% Flush (Ns Flush) (07/19/17 09:00) Ondansetron Inj (Zofran Inj) (07/19/17 04:00) Basic Metabolic Panel (Bmp) (07/20/17 06:00) Resp Oxygen Jose Alejandro C Titrat 1-4 L (07/19/17 ) Enoxaparin Inj (Lovenox Inj) (07/19/17 09:00) Naloxone Inj (Narcan Inj) (07/19/17 04:00) Magnesium Hydroxide Liq (Milk Of Magnesi (07/19/17 04:00) Sennosides (Senokot) (07/19/17 04:00) Bisacodyl Supp (Dulcolax Supp) (07/19/17 04:00) Lactulose Liq (Lactulose Liq) (07/19/17 04:00) Inpatient Certification (07/19/17 ) Morphine Inj (Morphine Inj) (07/19/17 04:00) Morphine Inj (Morphine Inj) (07/19/17 04:00) Consult Front Desk Host Oncology (07/19/17 ) (Hub Use Only)Inp Phy Cons/Ref (07/19/17 ) Admit Order (Ed Use Only) (07/19/17 ) ^ Saline Lock (07/19/17 04:19) Resp Oxygen Jose Alejandro C Titrat 1-4 L (07/19/17 ) Notify Dr: Other (07/19/17 04:19) Sodium Chloride 0.9% Flush (Ns Flush) (07/19/17 09:00) Sodium Chloride 0.9% Flush (Ns Flush) (07/19/17 04:30) Labs Laboratory Tests Test 07/19/17 02:00 07/19/17 02:15 White Blood Count 10.1 TH/MM3 Red Blood Count 3.81 MIL/MM3 Hemoglobin 13.4 GM/DL Hematocrit 38.9 % Mean Corpuscular Volume 102.2 FL Mean Corpuscular Hemoglobin 35.1 PG Mean Corpuscular Hemoglobin Concent 34.3 % Red Cell Distribution Width 11.9 % Platelet Count 329 TH/MM3 Mean Platelet Volume 7.7 FL Neutrophils (%) (Auto) 81.7 % Lymphocytes (%) (Auto) 7.1 % Monocytes (%) (Auto) 10.6 % Eosinophils (%) (Auto) 0.3 % Basophils (%) (Auto) 0.3 % Neutrophils # (Auto) 8.3 TH/MM3 Lymphocytes # (Auto) 0.7 TH/MM3 Monocytes # (Auto) 1.1 TH/MM3 Eosinophils # (Auto) 0.0 TH/MM3 Basophils # (Auto) 0.0 TH/MM3 CBC Comment DIFF FINAL Differential Comment Prothrombin Time 11.3 SEC Prothromb Time International Ratio 1.0 RATIO Activated Partial Thromboplast Time 35.4 SEC Urine Color YELLOW Urine Turbidity CLEAR Urine pH 6.0 Urine Specific [place] 1.036 Urine Protein 30 mg/dL Urine Glucose (UA) NEG mg/dL Urine Ketones 80 mg/dL Urine Occult Blood NEG Urine Nitrite NEG Urine Bilirubin NEG Urine Urobilinogen LESS THAN 2.0 MG/DL Urine Leukocyte Esterase TRACE Urine RBC 1 /hpf Urine WBC 6 /hpf Urine Squamous Epithelial Cells 1 /hpf Microscopic Urinalysis Comment CULT NOT INDICATED Blood Urea Nitrogen 7 MG/DL Creatinine 0.46 MG/DL Random Glucose 105 MG/DL Total Protein 7.9 GM/DL Albumin 3.8 GM/DL Calcium Level 9.3 MG/DL Alkaline Phosphatase 86 U/L Aspartate Amino Transf (AST/SGOT) 21 U/L Alanine Aminotransferase (ALT/SGPT) 24 U/L Total Bilirubin 0.5 MG/DL Sodium Level 132 MEQ/L Potassium Level 3.0 MEQ/L Chloride Level 93 MEQ/L Carbon Dioxide Level 27.4 MEQ/L Anion Gap 12 MEQ/L Estimat Glomerular Filtration Rate 135 ML/MIN Lipase 215 U/L Lactic Acid Level 1.3 mmol/L [facility] Medical Decision Making Medical Screen Exam Complete: Yes Emergency Medical Condition: Yes Medical Record Reviewed: Yes Interpretation(s) CBC & BMP Diagram 07/19/17 02:00 Total Protein 7.9, Albumin 3.8, Calcium Level 9.3, Alkaline Phosphatase 86, Aspartate Amino Transf (AST/SGOT) 21, Alanine Aminotransferase (ALT/SGPT) 24, Total Bilirubin 0.5 Vital Signs Date Time Temp Pulse Resp B/P (MAP) Pulse Ox O2 Delivery O2 Flow Rate FiO2 07/19/17 04:00 119 16 141/87 (105) 98 Room Air 07/19/17 02:00 16 07/18/17 23:56 98.9 120 16 157/82 (107) 96 Room Air Chest x-ray no lobar infiltrate no subdiaphragmatic free air EKG: Sinus tachycardia no acute ST elevation or injury pattern change noted Differential Diagnosis Bowel obstruction, electronic disturbance, dehydration, renal failure Narrative Course patient placed on monitoring coordinator IV access obtained pulse oximetry of placed; specimens collected and sent for resulting; review of radiographic studies and printing of CT from earlier on Tuesday consistent with small bowel obstruction as aforementioned Patient's case discussed with covering physician for patient's primary for admission Patient with nasogastric tube insertion to intermittent low wall suction urinalysis elevated specific gravity; hemoglobin stable; metabolic panel with hyperkalemia potassium 3.0 IV potassium replacement administered Lactic acid 1.3, not elevated Patient given normal saline bolus 2 along with IV potassium replacement 10 mEq over 1 hour 3 doses; Patient aware of need for admission; patient's case discussed with covering physician Physician Communication Physician Communication discussed with Alli Bronson PA-C admit to Dr Jaimes Diagnosis Primary Impression: SBO (small bowel obstruction) Additional Impression: Hypokalemia Admitting Information Admitting Physician Requests: Admit Yenny Harris MD Jul 19, 2017 01:34
[2017-07-19] MEDS ORDERED: SODIUM CHLOR 0.9% 1000 ML INJ 1,000 ML IV SCH (01:42)
[2017-07-19] MEDS ORDERED: ONDANSETRON HCL 4 MG/2 ML VIAL IVP ONE (01:45)
[2017-07-19] MEDS ORDERED: SODIUM CHLOR 0.9% 1000 ML INJ 1,000 ML IV ONE (01:45)
[2017-07-19] MEDS ORDERED: SODIUM CHLORIDE 0.9% FLUSH 10 ML FLUSH IV FLUSH PRN ×2 (01:45→04:00)
--- NOTE | 2017-07-19 02:11 | RADRPT ---
EXAM DATE/TIME: 07/19/2017 01:55 [facility] COMPARISON: CHEST PA & LAT, January 20, 2017, 11:54. INDICATIONS : Short of breath. MEDICAL HISTORY : Hypertension. SURGICAL HISTORY : Infusaport. ENCOUNTER: Initial ACUITY: 1 day PAIN SCORE: 0/10 LOCATION: Bilateral chest FINDINGS: Right chest port is present in good position and is accessed. Lungs appear clear. No pleural effusion is evident. Cardiomediastinal contours are satisfactory. CONCLUSION: No acute disease Ralph Thomason MD on July 19, 2017 at 2:09 Board Certified Radiologist. This report was verified electronically.
[2017-07-19 02:32] LABS: BLOOD, URINE NEG (NEG); COMMENT (UR) CULT NOT INDICATED; CULTURE IF INDICATED CULT NOT INDICATED; GLUCOSE,URINE NEG (NEG); KETONE, URINE 80 mg/dL (NEG); NITRITE,URINE NEG (NEG); SQUAMOUS EPITHELIAL CELL URINE 1 /hpf (0-5); URINE COLOR YELLOW (YELLW/STRAW)
[2017-07-19 02:38] LABS: AUTOMATED NEUTROPHIL # 8.3 TH/MM3 (1.8-7.7); BASOPHIL % 0.3 % (0.0-2.0); EOSINOPHIL % 0.3 % (0.0-4.0); HEMATOCRIT 38.9 % (35.0-46.0); HEMO FLAGS DIFF FINAL; LYMPH % 7.1 % (9.0-44.0); LYMPHOCYTE # 0.7 TH/MM3 (1.0-4.8); MEAN CELL VOLUME 102.2 FL (80.0-100.0); MEAN CORPUSCULAR HEMOGLOBIN 35.1 PG (27.0-34.0); MEAN CORPUSCULAR HGB CONC 34.3 % (32.0-36.0); MONO % 10.6 % (0.0-8.0); NEUT % 81.7 % (16.0-70.0); PLATELET COUNT 329 TH/MM3 (150-450); RED BLOOD COUNT 3.81 MIL/MM3 (4.00-5.30); RED CELL DISTRIBUTION WIDTH 11.9 % (11.6-17.2); WHITE BLOOD COUNT 10.1 TH/MM3 (4.0-11.0)
[2017-07-19 02:44] LABS: APTT (PATIENT) 35.4 SEC (24.3-30.1); PROTHROMBIN TIME - PATIENT 11.3 SEC (9.8-11.6)
[2017-07-19] MEDS ORDERED: LIDOCAINE VISCOUS 2% SOLN 15 ML UDC OTHER ONE (02:45)
[2017-07-19 02:47] LABS: ALT (GPT) 24 U/L (10-53); ANION GAP 12 MEQ/L (5-15); AST (GOT) 21 U/L (15-37); BICARBONATE 27.4 MEQ/L (21.0-32.0); BLOOD UREA NITROGEN 7 MG/DL (7-18); CHLORIDE 93 MEQ/L (98-107); GLOMERULAR FILTRATION RATE 135 ML/MIN (>89); SODIUM (NA) 132 MEQ/L (136-145)
[2017-07-19 02:50] LABS: ALKALINE PHOSPHATASE 86 U/L (45-117); TOTAL BILIRUBIN ADULT 0.5 MG/DL (0.2-1.0)
[2017-07-19] MEDS ORDERED: NALOXONE HCL 0.4 MG/ML AMP IV PUSH PRN (04:00)
[2017-07-19] MEDS ORDERED: SENNOSIDES 8.6 MG TAB PO PRN (04:00)
[2017-07-19] MEDS ORDERED: ONDANSETRON HCL 4 MG/2 ML VIAL IVP PRN (04:00)
[2017-07-19] MEDS ORDERED: LACTULOSE SYRUP 20 GM/30 ML CUP PO PRN (04:00)
[2017-07-19] MEDS ORDERED: MAGNESIUM HYDROXIDE SUSP 30 ML CUP PO PRN (04:00)
[2017-07-19] MEDS ORDERED: MORPHINE SULFATE 4 MG/ML INJ IV PUSH PRN ×2 (04:00)
[2017-07-19] MEDS ORDERED: BISACODYL 10 MG SUPP RECTAL PRN (04:00)
[2017-07-19] MEDS: SODIUM CHLOR 0.9% 1000 ML INJ 1,000 ML IV SCH ×2 (04:19→14:54)
[2017-07-19] MEDS: POTASSIUM CHLOR 10 MEQ PREMIX 100 ML IV SCH ×3 (04:19→08:05)
[2017-07-19] MEDS ORDERED: SODIUM CHLORIDE 0.9% FLUSH 10 ML FLUSH IVF PRN (04:30)
[2017-07-19] MEDS: ENOXAPARIN SODIUM 40 MG/0.4 ML SYRINGE SQ SCH (08:05)
--- NOTE | 2017-07-19 08:10 | PD.CONS ---
History of Present Illness Service DRAWER IN [facility]/ONC Consult Requested By Dr. Harris Reason for Consult SBO Primary Care Physician Kennedi Loera M.D. Diagnoses: History of Present Illness Patient has a diagnosis with ovarian cancer stage 3C and in May 2017, completed Taxol and Carboplatin chemotherapy. She was doing well until the last week she complaints of abdominal pain, nausea and vomiting. She was seen by her PCP who felt she may be suffering from food poisoning. She was taking in fluids but feeling very weak and contacted our office on Sunday 07/15 she states she had not had any vomiting since but she still was not eating much. She was instructed to present to ER if her symptoms worsened. She presented to our office on Tuesday07/18/17 stating that she was still having some abdominal pain but she declined any vomiting. She states was having flatus but still not eating a lot and feeling weak. During physical exam mass was palpated to lower left pelvis, and due to her continuing symptoms CT scan was ordered that shown SBO, carcinomatosis, and small amount of ascites. The CT report was reviewed with Mrs. Michael and her and she was instructed that if she had any vomiting, fevers or increased abd pain to please present to ER. Patient reports that last evening she had 2 episodes of vomiting and presented to ER for further evaluation. She was found to have hyponatremia and hypokalemia. She was admitted with SBO, NG tube was placed and started on hydration. CXR was normal. Patient is seen now in consultation on the oncology floor. She states she has mild abd pain. NG placed and is uncomfortable but she is tolerating it. No flatus. Review of Systems Constitutional: COMPLAINS OF: Fatigue, Weight loss Gastrointestinal: COMPLAINS OF: Abdominal pain, Constipation, Vomiting, Anorexia Except as stated in HPI: all other systems reviewed are Neg Past Family Social History Allergies: Coded Allergies: penicillin G (Unverified Allergy, Severe, Diarrhea, 07/19/17) Past Medical History reflux ovarian cancer 3C Past Surgical History RA lap hyst with BSO and debulking infusa port placed to upper R chest Reported Medications per EMR Active Ordered Medications Current Medications Ondansetron HCl (Zofran Inj) 4 mg ONCE ONCE IVP Last administered on t 02:20; Start 07/19/17 at 01:45; Stop 07/19/17 at 01:46; Status DC Sodium Chloride 1,000 ml @ 1,000 mls/hr Q1H IV Last administered on 02:20; Start 07/19/17 at 01:42; Stop 07/19/17 at 02:41; Status DC Sodium Chloride (NS Flush) 2 ml UNSCH PRN IV FLUSH FLUSH AFTER USING IV ACCESS ; Start 07/19/17 at 01:45; Stop 07/19/17 at 04:24; Status DC Sodium Chloride 1,000 ml @ 999 mls/hr BOLUS ONCE IV Last administered on 03:51; Start 07/19/17 at 01:45; Stop 07/19/17 at 02:45; Status DC Lidocaine HCl (Xylocaine 2% Viscous) 2 ml ONCE ONCE OTHER Last administered on 07/19/17 03:51; Start 07/19/17 at 02:45; Stop 07/19/17 at 02:46; Status DC Potassium Chloride 100 ml @ 100 mls/hr Q1H IV Last administered on 07/19/17 05:55; Start 07/19/17 at 04:00; Stop 07/19/17 at 06:59; Status DC Sodium Chloride 1,000 ml @ 100 mls/hr Q10H IV Last administered on 07/19/17 04:19; Start 07/19/17 at 04:00 Sodium Chloride (NS Flush) 2 ml UNSCH PRN IV FLUSH FLUSH AFTER USING IV ACCESS ; Start 07/19/17 at 04:00 Sodium Chloride (NS Flush) 2 ml BID IV FLUSH ; Start 07/19/17 at 09:00 Ondansetron HCl (Zofran Inj) 4 mg Q6H PRN IVP NAUSEA OR VOMITING; Start at 04:00 Enoxaparin Sodium (Lovenox Inj) 40 mg Q24H SQ ; Start 07/19/17 at 09:00 Naloxone HCl (Narcan Inj) 0.4 mg UNSCH PRN IV PUSH SEE LABEL COMMENTS; Start 07/19/17 at 04:00 Magnesium Hydroxide (Milk Of Magnesia Liq) 30 ml Q12H PRN PO MILD - MODERATE CONSTIPATION; Start 07/19/17 at 04:00 Sennosides (Senokot) 17.2 mg Q12H PRN PO MODERATE - SEVERE CONSTIPATION; Start 07/19/17 at 04:00 Bisacodyl (Dulcolax Supp) 10 mg DAILY PRN RECTAL SEVERE CONSITIPATION; Start 07/19/17 at 04:00 Lactulose (Lactulose Liq) 30 ml DAILY PRN PO SEVERE CONSITIPATION; Start 07/19 at 04:00 Morphine Sulfate (Morphine Inj) 2 mg Q3H PRN IV PUSH pain 1-5; Start 07/19/17 at 04:00 Morphine Sulfate (Morphine Inj) 4 mg Q3H PRN IV PUSH pain 6-10; Start at 04:00 Sodium Chloride (NS Flush) 2 ml BID IV FLUSH ; Start 07/19/17 at 09:00; Stop 07/19/17 at 09:00; Status DC Sodium Chloride (NS Flush) 2 ml UNSCH PRN IVF FLUSH AFTER USING IV ACCESS; Start 07/19/17 at 04:30; Stop 07/19/17 at 04:30; Status DC Social History livers with drinks aprox 2 drinks daily nonsmoker Physical Exam Vital Signs Vital Signs Date Time Temp Pulse Resp B/P (MAP) Pulse Ox O2 Delivery O2 Flow Rate FiO2 07/19/17 04:47 07/19/17 04:30 98 07/19/17 04:30 97.0 125 17 156/82 (106) 96 07/19/17 04:00 119 16 141/87 (105) 98 Room Air 07/19/17 02:00 16 07/18/17 23:56 98.9 120 16 157/82 (107) 96 Room Air Physical Exam GENERAL: This is a thin patient, in no apparent distress. SKIN: No rashes, ecchymoses or lesions. Cool and dry. HEAD: Atraumatic. Normocephalic. No temporal or scalp tenderness. EYES: Pupils equal round and reactive. Extraocular motions intact. No scleral icterus. No injection or drainage. CARDIOVASCULAR: Regular rate and rhythm without murmurs, gallops, or rubs. RESPIRATORY: Clear to auscultation. Breath sounds equal bilaterally. No wheezes , rales, or rhonchi. GASTROINTESTINAL: Abdomen frim, mildly distended, + BS to upper quads no BS to lower quads. tympanic MUSCULOSKELETAL: Extremities without clubbing, cyanosis, or edema. NEUROLOGICAL: Awake and alert. Normal speech. Laboratory Laboratory Tests Test 07/19/17 02:00 07/19/17 02:15 White Blood Count 10.1 Red Blood Count 3.81 Hemoglobin 13.4 Hematocrit 38.9 Mean Corpuscular Volume 102.2 Mean Corpuscular Hemoglobin 35.1 Mean Corpuscular Hemoglobin Concent 34.3 Red Cell Distribution Width 11.9 Platelet Count 329 Mean Platelet Volume 7.7 Neutrophils (%) (Auto) 81.7 Lymphocytes (%) (Auto) 7.1 Monocytes (%) (Auto) 10.6 Eosinophils (%) (Auto) 0.3 Basophils (%) (Auto) 0.3 Neutrophils # (Auto) 8.3 Lymphocytes # (Auto) 0.7 Monocytes # (Auto) 1.1 Eosinophils # (Auto) 0.0 Basophils # (Auto) 0.0 CBC Comment DIFF FINAL Differential Comment Prothrombin Time 11.3 Prothromb Time International Ratio 1.0 Activated Partial Thromboplast Time 35.4 Urine Color YELLOW Urine Turbidity CLEAR Urine pH 6.0 Urine Specific [place] 1.036 Urine Protein 30 Urine Glucose (UA) NEG Urine Ketones 80 Urine Occult Blood NEG Urine Nitrite NEG Urine Bilirubin NEG Urine Urobilinogen LESS THAN 2.0 Urine Leukocyte Esterase TRACE Urine RBC 1 Urine WBC 6 Urine Squamous Epithelial Cells 1 Microscopic Urinalysis Comment CULT NOT INDICATED Blood Urea Nitrogen 7 Creatinine 0.46 Random Glucose 105 Total Protein 7.9 Albumin 3.8 Calcium Level 9.3 Alkaline Phosphatase 86 Aspartate Amino Transf (AST/SGOT) 21 Alanine Aminotransferase (ALT/SGPT) 24 Total Bilirubin 0.5 Sodium Level 132 Potassium Level 3.0 Chloride Level 93 Carbon Dioxide Level 27.4 Anion Gap 12 Estimat Glomerular Filtration Rate 135 Lipase 215 Lactic Acid Level 1.3 Date/Time Source Procedure Growth Status 07/19/17 02:00 Blood Peripheral Aerobic Blood Culture Pending Received 07/19/17 02:00 Blood Peripheral Anaerobic Blood Culture Pending Received Result Diagram: 07/19/1719907/19/17199 Assessment and Plan Problem List: (1) SBO (small bowel obstruction) ICD Codes: K56.609 - Unspecified intestinal obstruction, unspecified as to partial versus complete obstruction Status: Acute Plan: NG tube to LIWS supportive care IV hydration Ok to get OOB to chair and ambulate may consider general surgery consult if she does not improve medically (2) Hypokalemia ICD Codes: E87.6 - Hypokalemia Status: Acute Plan: daily labs IV fluids (3) Ovarian cancer, bilateral ICD Codes: C56.1 - Malignant neoplasm of right ovary; C56.2 - Malignant neoplasm of left ovary Status: Chronic Plan: recent imaging through [facility] shown carcinomatosis once she has overcome this most recent hospitalization Dr. Rivera would like to have a PET/CT scan obtained and then discussion of treatment options. Discussed Condition With Patient and her Edita Harrison Jul 19, 2017 08:10
--- NOTE | 2017-07-19 08:51 | MB ---
cc: YINKA BERGERON M.D., KELLY L. MD CASIMIRO, JESSY M.D. DHAND, ARUN M.D. DATE OF CONSULTATION: 07/19/2017 REASON FOR CONSULTATION Patient known to us with ovarian cancer. REASON FOR ADMISSION Small bowel obstruction. She is seen. Her findings are reviewed. She is examined by me and counseled by me in conjunction with our nurse practitioner (Edita Rosas). I agree with her findings, assessment and plan of care. HISTORY OF PRESENT ILLNESS This is a 66-year-old female who completed neoadjuvant chemotherapy, surgical cytoreduction, followed by additional chemotherapy with clinical, radiographic and biochemical remission for her stage IIIC ovarian cancer. She completed her treatment approximately 2 months ago. She reports of last week having cramp-like abdominal pain, nausea, vomiting, feeling poorly, poor intake and decreased bowel function; however, the nausea and vomiting seemed to improve but she continued to feel poorly. She contacted our office yesterday and CT scan was recommended and scheduled. She had a CAT scan that shows multiple dilated loops of small bowel suggestive of at least a partial if not a full small bowel obstruction. The actual point of transition not identified but thought to be in the ileum. There was also a question of some peritoneal nodularity raising the possibility of peritoneal implants and some subtle subcentimeter changes in the liver of undetermined significance. She and her spoke with our nurse practitioner (Edita Rosas) last night and were advised to present to the emergency room if nausea and vomiting recurred. They then contacted me through the call service and we reviewed findings and the same advice was given, that if she had recurrence of nausea and vomiting she should present to the emergency room. She had one episode of emesis after drinking the contrast for the CAT scan and then had another episode later and has per our discussion presented to the emergency room where she was seen, evaluated and now admitted for management. PAST MEDICAL HISTORY, PAST SURGICAL HISTORY, MEDICATIONS, REVIEW OF SYSTEMS, ALLERGIES: Are all as documented in the chart. They are reviewed. There is no new information gleaned or added With respect to review of systems no one else has been sick in the household. She does not believe she has been febrile. There has been no bleeding from any site. She cannot identify any precipitating event that triggered her to start feeling so poorly. LABORATORY H&H 13.4 and 38.9, white count 10.1, platelets 329. Electrolytes notable for a low sodium and potassium at 132 and 3.0 respectively. Chloride low at 93. BUN and creatinine 7 and 0.46. Transaminases are normal. Blood cultures have been obtained with no growth to date. IMAGING CT scan is as described above. Chest x-ray shows no acute process. Chest CT scan also shows no acute process PHYSICAL EXAMINATION VITAL SIGNS: She has been afebrile since admission, pulse ranging 119-125, respirations 16-18, blood pressure 141-156/82-87. O2 saturations greater than or equal to 96%. GENERAL: She appears poorly but in no cardiac or respiratory distress. Nasogastric tube has been placed and appears to be functioning. LUNGS: Apices clear. CARDIOVASCULAR: Rapid regular rate and rhythm. ABDOMEN: Distended, tympanic, mildly tender in all four quadrants. Scant bowel sounds. BACK: No CVA tenderness. PELVIC: Deferred, given recent exam. EXTREMITIES: Nontender. DISCUSSION Time is spent in discussion with her and her reviewing the findings in her case to date. I am certainly sorry she is feeling so poorly. It is uncertain what triggered the illness and what appears to be at least a partial small-bowel obstruction (as flatus has been intermittent) with no bowel movement in several days. In review of the CAT scan imaging it is difficult for me to appreciate the nodularity as described by the radiologist. I will try to review that with the radiologist and once she recovers from this illness it may be reasonable to consider a PET scan to look for PET-avid activity. We know that postsurgical adhesions can certainly cause or contribute to small bowel obstruction so it does not necessarily mean that there is evidence of recurrent active disease, although with a history of ovarian cancer we must consider that possibility as well. Furthermore, CA-125 was obtained which was significantly elevated at greater than 500, but also in the context of a peritonitis, bowel obstruction or any inflammatory process this can be significantly elevated falsely and may or may not accurately reflect underlying disease. Additional information is needed right now to try to address the issue, nasogastric tube decompression, bowel rest, IV fluid support, correction of dehydration and repletion of electrolytes. Regarding questions of possible underlying cancer, if recurrent disease is ultimately confirmed we would have a difficult set of circumstances as by definition it would reflect chefornak-resistant disease if it indeed shows evidence of recurrence within 6 months of completing treatment and that makes subsequent treatments and the likelihood of responding to treatments more difficult but it is too soon to tell based on the information we have. Discussion ensued. More questions were asked and answered to the best of my capacity. I am very grateful for the medical team's excellent care and the care of others. Will continue present management, try if possible to resolve this small bowel obstruction with conservative measures. ASSESSMENT 1. History of stage IIIC bilateral ovarian cancer. 2. Status post neoadjuvant chemotherapy surgery and subsequent chemotherapy. 3. Completed treatment approximately 2 months ago with no evidence of disease. 4. Now admitted with small-bowel obstruction, nonspecific CAT scan findings, indeterminate regarding presence or absence of recurrent disease as described above. Also including an elevated CA-125. PLAN 1. Agree with hospital admission, nasogastric tube decompression, IV fluid hydration, correction of electrolytes and supportive care. 2. The objective is to try to resolve this issue with conservative measures. Thank you for the consultation. Will follow along in her care. MD ZOE Wright/DEVAUGHN /8:03 AM /8:23 AM
[2017-07-19] MEDS ORDERED: SODIUM CHLORIDE 0.9% FLUSH 10 ML FLUSH IV FLUSH SCH (09:00)
[2017-07-19] MEDS: SODIUM CHLORIDE 0.9% FLUSH 10 ML FLUSH IV FLUSH SCH ×2 (09:00→20:21)
--- NOTE | 2017-07-19 09:45 | RADRPT ---
EXAM DATE/TIME: 07/19/2017 08:52 [facility] COMPARISON: No previous studies available for comparison. INDICATIONS : Evaluate nasogastric tube position. MEDICAL HISTORY : Hypertension. Ovarian Cancer SURGICAL HISTORY : Infusaport ENCOUNTER: Initial ACUITY: 1 day PAIN SCORE: 0/10 LOCATION: Bilateral Abdomen FINDINGS: Air-filled dilated small bowel loops are identified. A relatively small amount of gas is seen in the colon. There is no evidence of mass effect or free air. Nasogastric tube is in place. CONCLUSION: Small bowel ileus characteristic of a partial small bowel obstruction. Nasogastric tube in good position. Jose David Stahl MD on July 19, 2017 at 9:41 Board Certified Radiologist. This report was verified electronically.
--- NOTE | 2017-07-19 10:00 | EKG ---
Date Performed: 07/19/2017 Time Performed: 02:56:49 PTAGE: 66 years EKG: SINUS TACHYCARDIA WITH SHORT AK INTERVAL ABNORMAL RHYTHM ECG Compared to prior tracing no s ignificant change DOCTOR: Silviano Brock Interpretating Date/Time 07/19/2017 09:57:07
--- NOTE | 2017-07-19 18:59 | MH ---
cc: ROSALINE SOSA DATE OF ADMISSION 07/19/2017 DATE OF [address] Sosa. I am seeing the patient this morning around 9 a.m. REASON FOR ADMISSION Nausea, vomiting and abdominal pain. HISTORY OF THE PRESENT ILLNESS The patient is a very pleasant 66-year-old female who is following Dr. Rivera for ovarian cancer. The patient is status post hysterectomy and bilateral salpingo-oophorectomy and omentectomy in the past. She was doing fairly well but she started having nausea and vomiting with abdominal pain since last . Abdominal pain started first. It was mild. She saw her oncologist on Tuesday and CT of the abdomen and pelvis was done. It showed the patient has a bowel obstruction. Within the past week the patient has also nausea and vomiting. She could not keep anything down. So she was advised by oncologist to come to the ER. In the ER she was evaluated by the ER physician and she was admitted. She had no fever, no chills. There was no chest pain. There is no other associated symptoms. She had no diarrhea or constipation. She was admitted and NG was placed. After NG she had some relief. Eventually when I saw her this morning she had no nausea or vomiting at that time. NG tube was on suction. PAST MEDICAL HISTORY 1. Ovarian cancer status post hysterectomy, bilateral salpingo-oophorectomy and omentectomy. 2. Status post Qiwzza-G-Hpec placement. 3. Status post chemotherapy. 4. Gastroesophageal reflux disease. 5. Hypertension. PAST SURGICAL HISTORY As described above. Status post port. MEDICATIONS Reviewed please see MAR. ALLERGIES THE PATIENT IS ALLERGIC TO PENICILLIN. SOCIAL HISTORY The patient drinks two glasses of wine two times a week. Does not smoke or do any drugs. . FAMILY HISTORY Noncontributory. REVIEW OF SYSTEMS As described above in the history of present illness, otherwise negative for 10 systems. PHYSICAL EXAMINATION GENERAL: The patient is alert and oriented, lying on bed without any apparent distress. VITAL SIGNS: The patient is afebrile, pulse is ____, respiratory rate 16, blood pressure 137/75, earlier this morning it was 131/73. Pulse oximetry of 99% this morning and at present 96%. Blood pressure is stable. HEENT: Atraumatic, normocephalic. Eyes, negative or icterus. Mouth unremarkable. Nose with an nasogastric tube. Dry nostril. NECK: Supple. No increase in JVD. Negative thyromegaly. Central trachea. CHEST: Clear to auscultation. CARDIOVASCULAR: S1 and S2 audible. Unable to hear any S3 gallop. ABDOMEN: Soft. Nontender to mildly tender in the mid abdomen. No rebound or guarding. No rigidity. Mildly distended in the middle abdomen. EXTREMITIES: No cyanosis or pedal edema appreciated. CENTRAL NERVOUS SYSTEM: Alert and oriented. Normal facial features. Normal speech. Normal power and tone. SKIN: Warm and dry. PSYCHIATRIC: Appropriate mood and affect. LABORATORY DATA Investigations, WBC, hemoglobin, hematocrit and platelet count within normal limits. Potassium 3, sodium 132, chloride 93, creatinine 0.46. LFTs within normal limits. Lipase within normal limits. Lactic acid 1.3. PT 11.3, INR 1.0. UA shows leukocyte esterase trace, wbc's 6. IMAGING Abdominal x-ray done this morning shows small bowel ileus characteristic of a partial small bowel obstruction. Nasogastric tube in good position. Chest x-ray done showing no acute disease. ASSESSMENT 1. Nausea, vomiting, abdominal pain secondary to small-bowel obstruction. 2. Hypokalemia. 3. Tachycardia. 4. Ovarian cancer bilateral and status post surgery. PLAN 1. The patient admitted to the floor. 2. Gastrostomy tube. 3. Nasogastric tube with suction. 4. IV hydration. 5. Replace potassium. 6. Labs for tomorrow. 7. Continue IV hydration, monitor heart rate. 8. Plan for tele monitoring. 9. Try to give metoprolol if possible because of the reactive tachycardia. 10. Discussed with the patient and spouse at bedside. 11. Condition discussed with them in detail. Appreciate Dr. Rivera' input. Further recommendations to follow as the patient progresses. Rosaline Sosa MD JP/MARY GRACE /6:01 PM /6:21 PM
[2017-07-19] MEDS: ACETAMINOPHEN 1000 MG/100 ML 100 ML IV PRN (20:21)
[2017-07-20] VITALS (8 sets, daily range): BP systolic 117–160; BP diastolic 61–81; PULSE 84–114; RESP 17–20; TEMP 96–98.7; O2SAT 97–100
[2017-07-20] MEDS: SODIUM CHLOR 0.9% 1000 ML INJ 1,000 ML IV SCH ×2 (00:44)
[2017-07-20 06:51] LABS: BICARBONATE 21.6 MEQ/L (21.0-32.0); POTASSIUM 3.3 MEQ/L (3.5-5.1)
--- NOTE | 2017-07-20 07:57 | PD.ONC.PN ---
Subjective Subjective Remarks Patient is resting in bed states that the IV Tylenol was helpful is controlling her pain +flatus overnight denies any nausea or vomiting has been OOB to bedside commode to urinate Objective Data Date Time Temp Pulse Resp B/P (MAP) Pulse Ox O2 Delivery O2 Flow Rate FiO2 07/20/17 05:08 97 07/20/17 04:00 93 07/20/17 04:00 97.4 92 17 117/61 (79) 97 07/20/17 00:03 84 07/20/17 00:00 97.2 92 17 117/65 (82) 97 07/19/17 20:51 16 07/19/17 20:11 104 07/19/17 20:00 97.5 103 17 128/65 (86) 97 07/19/17 19:44 96 21 07/19/17 16:00 99.1 106 16 137/75 (95) 96 07/19/17 14:19 96 07/19/17 12:00 99.0 115 16 138/79 (98) 97 07/19/17 08:00 99.3 123 18 131/73 (92) 99 07/20/17 07/20/17 07/20/17 07:00 15:00 23:00 Intake Total 300 ml Balance 300 ml Result Diagram: 07/19/17 0200 07/20/17 0551 Laboratory Results Laboratory Tests Test 07/19/17 02:00 07/19/17 02:15 07/20/17 05:51 White Blood Count 10.1 TH/MM3 Red Blood Count 3.81 MIL/MM3 Hemoglobin 13.4 GM/DL Hematocrit 38.9 % Mean Corpuscular Volume 102.2 FL Mean Corpuscular Hemoglobin 35.1 PG Mean Corpuscular Hemoglobin Concent 34.3 % Red Cell Distribution Width 11.9 % Platelet Count 329 TH/MM3 Mean Platelet Volume 7.7 FL Neutrophils (%) (Auto) 81.7 % Lymphocytes (%) (Auto) 7.1 % Monocytes (%) (Auto) 10.6 % Eosinophils (%) (Auto) 0.3 % Basophils (%) (Auto) 0.3 % Neutrophils # (Auto) 8.3 TH/MM3 Lymphocytes # (Auto) 0.7 TH/MM3 Monocytes # (Auto) 1.1 TH/MM3 Eosinophils # (Auto) 0.0 TH/MM3 Basophils # (Auto) 0.0 TH/MM3 CBC Comment DIFF FINAL Differential Comment Prothrombin Time 11.3 SEC Prothromb Time International Ratio 1.0 RATIO Activated Partial Thromboplast Time 35.4 SEC Urine Color YELLOW Urine Turbidity CLEAR Urine pH 6.0 Urine Specific Reserve 1.036 Urine Protein 30 mg/dL Urine Glucose (UA) NEG mg/dL Urine Ketones 80 mg/dL Urine Occult Blood NEG Urine Nitrite NEG Urine Bilirubin NEG Urine Urobilinogen LESS THAN 2.0 MG/DL Urine Leukocyte Esterase TRACE Urine RBC 1 /hpf Urine WBC 6 /hpf Urine Squamous Epithelial Cells 1 /hpf Microscopic Urinalysis Comment CULT NOT INDICATED Blood Urea Nitrogen 7 MG/DL 8 MG/DL Creatinine 0.46 MG/DL 0.24 MG/DL Random Glucose 105 MG/DL 57 MG/DL Total Protein 7.9 GM/DL Albumin 3.8 GM/DL Calcium Level 9.3 MG/DL 8.0 MG/DL Alkaline Phosphatase 86 U/L Aspartate Amino Transf (AST/SGOT) 21 U/L Alanine Aminotransferase (ALT/SGPT) 24 U/L Total Bilirubin 0.5 MG/DL Sodium Level 132 MEQ/L 136 MEQ/L Potassium Level 3.0 MEQ/L 3.3 MEQ/L Chloride Level 93 MEQ/L 103 MEQ/L Carbon Dioxide Level 27.4 MEQ/L 21.6 MEQ/L Lipase 215 U/L Lactic Acid Level 1.3 mmol/L Anion Gap 11 MEQ/L Estimat Glomerular Filtration Rate 286 ML/MIN Laboratory Tests Test 07/20/17 05:51 Blood Urea Nitrogen 8 MG/DL Creatinine 0.24 MG/DL Random Glucose 57 MG/DL Calcium Level 8.0 MG/DL Sodium Level 136 MEQ/L Potassium Level 3.3 MEQ/L Chloride Level 103 MEQ/L Carbon Dioxide Level 21.6 MEQ/L Anion Gap 11 MEQ/L Estimat Glomerular Filtration Rate 286 ML/MIN Culture Results Microbiology Date/Time Source Procedure Growth Status 07/19/17 02:00 Blood Peripheral Aerobic Blood Culture Pending Received 07/19/17 02:00 Blood Peripheral Anaerobic Blood Culture Pending Received 07/19/17 01:49 Blood Peripheral Aerobic Blood Culture Pending Received 07/19/17 01:49 Blood Peripheral Anaerobic Blood Culture Pending Received Imaging Studies Last Impressions Abdomen X-Ray 07/19/17 0000 Signed Impressions: Service Date/Time: Wednesday, July 19, 2017 08:52 - CONCLUSION: Small bowel ileus characteristic of a partial small bowel obstruction. Nasogastric tube in good position. Jose David Stahl MD Administered Medications Medications (Trade) Dose Ordered Sig/Olivier Route PRN Reason Start Time Stop Time Status Last Admin Dose Admin Enoxaparin Sodium (Lovenox Inj) 40 mg Q24H SQ 07/19/17 09:00 07/19/17 08:05 Acetaminophen 100 ml @ 400 mls/hr Q6H PRN IV PAIN SCALE 4 TO 10 07/19/17 17:00 07/19/17 20:21 Objective Remarks GENERAL: thin, well-developed patient. SKIN: Warm and dry. HEAD: Normocephalic. EYES: No scleral icterus. No injection or drainage. CARDIOVASCULAR: Regular rate and rhythm without murmurs. RESPIRATORY: Breath sounds equal bilaterally. No accessory muscle use. GASTROINTESTINAL: Abdomen soft, non-tender, nondistended. + BS x 4 EXTREMITIES: No cyanosis, or edema. MUSCULOSKELETAL: Adequate muscle tone. NEUROLOGICAL: No obvious focal deficit. Awake, alert, and oriented x3. PSYCHIATRIC: Appropriate mood and affect; insight and judgment normal. Assessment/Plan Problem List: (1) Ovarian cancer, bilateral ICD Codes: C56.1 - Malignant neoplasm of right ovary; C56.2 - Malignant neoplasm of left ovary Status: Chronic Plan: s/p completion of line 1 taxol and Carbo aprox [address] concerning for recurrent disease will obtain PET/CT as outpt once discharged (2) SBO (small bowel obstruction) ICD Codes: K56.609 - Unspecified intestinal obstruction, unspecified as to partial versus complete obstruction Status: Acute Plan: NG tube to LIWS aprox 500 cc greenish fluid over last 24 hours flushing NG per shift will continue supportive care hypoglycemia with random glucose at 56 will change IVF to D5 NS + 20 K at 84 cc/hour Attending Statement Discussed with Dr. Rivera and he is in agreement. Edita Rosas Jul 20, 2017 07:57
[2017-07-20] MEDS: D5-NS + KCL 20 MEQ INJ 1,000 ML IV SCH ×2 (08:55→22:07)
[2017-07-20] MEDS: ACETAMINOPHEN 1000 MG/100 ML 100 ML IV PRN (08:58)
[2017-07-20] MEDS: SODIUM CHLORIDE 0.9% FLUSH 10 ML FLUSH IV FLUSH SCH ×2 (08:59→21:00)
[2017-07-20] MEDS: ENOXAPARIN SODIUM 40 MG/0.4 ML SYRINGE SQ SCH (08:59)
[2017-07-20] MEDS ORDERED: PANTOPRAZOLE SODIUM 40 MG VIAL IV PUSH SCH (18:00)
--- NOTE | 2017-07-20 18:50 | HHI.PR ---
Subjective Remarks Patient has less discomfort and abdomen No nausea vomiting Passing some gases per rectum Review of system for 10 point system otherwise unremarkable Objective Objective Results - Vital Signs Date Time Temp Pulse Resp B/P (MAP) Pulse Ox O2 Delivery O2 Flow Rate FiO2 07/20/17 15:50 96.0 102 20 157/74 (101) 100 07/20/17 11:50 98.7 107 20 153/74 (100) 98 07/20/17 09:31 16 07/20/17 07:50 98.2 103 20 142/68 (92) 97 07/20/17 05:08 97 07/20/17 04:00 93 07/20/17 04:00 97.4 92 17 117/61 (79) 97 07/20/17 00:03 84 07/20/17 00:00 97.2 92 17 117/65 (82) 97 07/19/17 20:11 104 07/19/17 20:00 97.5 103 17 128/65 (86) 97 07/19/17 19:44 96 21 I/O 07/19/17 07/19/17 07/19/17 07/20/17 07/20/17 07/20/17 06:59 14:59 22:59 06:59 14:59 22:59 Intake Total 2000 ml 970 ml 30 ml 300 ml 800 ml Output Total 1 ml 100 ml Balance 1999 ml 870 ml 30 ml 300 ml 800 ml Intake Oral 0 ml 300 ml IV Total 2000 ml 970 ml 800 ml Tube Irrigant 30 ml Output Urine Total 1 ml 100 ml # Voids 2 Result Diagram: 07/19/17 0200 07/20/17 0551 Other Results Laboratory Tests Test 07/20/17 05:51 Blood Urea Nitrogen 8 Creatinine 0.24 Random Glucose 57 Calcium Level 8.0 Sodium Level 136 Potassium Level 3.3 Chloride Level 103 Carbon Dioxide Level 21.6 Anion Gap 11 Estimat Glomerular Filtration Rate 286 Date/Time Source Procedure Growth Status 07/19/17 02:00 Blood Peripheral Aerobic Blood Culture - Preliminary NO GROWTH IN 1 DAY Resulted 07/19/17 02:00 Blood Peripheral Anaerobic Blood Culture - Preliminary NO GROWTH IN 1 DAY Resulted Physical Exam Physical Exam VITAL SIGNS: Reviewed HEENT: Atraumatic, normocephalic. Eyes, negative conjunctival congestion or icterus. NG tube in the right nostril NECK: Supple. No increase in JVD. Negative thyromegaly. Central trachea. CHEST: Clear to auscultation. CARDIOVASCULAR: S1 and S2 audible. Unable to hear any S3 gallop. ABDOMEN: Soft. Nontender to mildly tender in the mid abdomen. No rebound or guarding. No rigidity. Mildly distended in the middle abdomen. EXTREMITIES: No cyanosis or pedal edema appreciated. CENTRAL NERVOUS SYSTEM: Alert and oriented. Normal facial features. Normal speech. Normal power and tone. SKIN: Warm and dry. PSYCHIATRIC: Appropriate mood and affect. A/P Assessment and Plan 1. Nausea, vomiting, abdominal pain secondary to small-bowel obstruction. 2. Hypokalemia. 3. Tachycardia. 4. Ovarian cancer bilateral and status post surgery. PLAN Labs reviewed Continue NG suction Beta pito Monitor blood pressure Monitor electrolytes CBC for tomorrow Appreciate oncology input Continue IV hydration, monitor heart rate. Try to give metoprolol if possible because of the reactive tachycardia. Discussed with the patient and spouse at bedside. Condition discussed with them in detail. Discussed with Manjeet Buenrostro MD Jul 20, 2017 18:50
[2017-07-20] MEDS: METOPROLOL TARTRATE 25 MG TAB PO SCH (22:06)
[2017-07-20] MEDS: PANTOPRAZOLE SODIUM 40 MG VIAL IV PUSH SCH (22:06)
[2017-07-21] VITALS (8 sets, daily range): BP systolic 137–165; BP diastolic 76–98; PULSE 74–120; RESP 17–20; TEMP 97.6–98.7; O2SAT 96–98
[2017-07-21 05:54] LABS: AUTOMATED NEUTROPHIL # 7.9 TH/MM3 (1.8-7.7); BASOPHIL # 0.1 TH/MM3 (0-0.2); BASOPHIL % 0.5 % (0.0-2.0); EOSINOPHIL # 0.1 TH/MM3 (0-0.4); EOSINOPHIL % 0.9 % (0.0-4.0); HEMO FLAGS DIFF FINAL; LYMPH % 7.3 % (9.0-44.0); LYMPHOCYTE # 0.7 TH/MM3 (1.0-4.8); MEAN CELL VOLUME 101.1 FL (80.0-100.0); MEAN CORPUSCULAR HEMOGLOBIN 34.4 PG (27.0-34.0); MONO % 11.4 % (0.0-8.0); NEUT % 79.9 % (16.0-70.0); PLATELET COUNT 303 TH/MM3 (150-450); RED BLOOD COUNT 3.36 MIL/MM3 (4.00-5.30); WHITE BLOOD COUNT 9.9 TH/MM3 (4.0-11.0)
[2017-07-21 06:05] LABS: BICARBONATE 25.9 MEQ/L (21.0-32.0)
[2017-07-21] MEDS: PANTOPRAZOLE SODIUM 40 MG VIAL IV PUSH SCH ×2 (08:03→19:55)
[2017-07-21] MEDS: METOPROLOL TARTRATE 25 MG TAB PO SCH ×2 (08:03→19:57)
[2017-07-21] MEDS: SODIUM CHLORIDE 0.9% FLUSH 10 ML FLUSH IV FLUSH SCH ×2 (08:05→19:54)
[2017-07-21] MEDS: ENOXAPARIN SODIUM 40 MG/0.4 ML SYRINGE SQ SCH (08:05)
[2017-07-21] MEDS: D5-NS + KCL 20 MEQ INJ 1,000 ML IV SCH ×2 (08:22→22:32)
[2017-07-21] MEDS: ACETAMINOPHEN 1000 MG/100 ML 100 ML IV PRN ×2 (08:22→19:54)
--- NOTE | 2017-07-21 10:30 | HHI.PR ---
Addendum to Inpatient Note Additional Information She is without new c/o. Some intermittent flatus, no BM, no N/V Afeb, VSS (pulse 91-114) now on B-pito AOx3, comfortable NGT in place Abdomen soft, non-tender, improved BS x 4 A/P HD#3, incremental improvements CPM, clamp NGT x 30 minutes after oral meds and to allow ambulation at least 3x/ day. If no n/v and continued flatus, may start clamping NGT within next ~ 24 hours. Patricia Rivera MD Jul 21, 2017 10:30
--- NOTE | 2017-07-21 21:50 | HHI.PR ---
Subjective Remarks Patient has less discomfort in abdomen passing some gases per rectum No nausea vomiting no sob no chest pain Review of system for 10 point system otherwise unremarkable Objective Objective Results - Vital Signs Date Time Temp Pulse Resp B/P (MAP) Pulse Ox O2 Delivery O2 Flow Rate FiO2 07/21/17 19:58 113 20 157/98 (117) 96 07/21/17 16:00 98.7 120 20 165/93 (117) 98 07/21/17 13:07 98.2 95 20 152/89 (110) 98 07/21/17 13:06 21 07/21/17 08:00 97.6 18 158/89 (112) 97 07/21/17 05:40 98.0 100 17 153/79 (103) 97 07/21/17 04:00 91 07/21/17 00:00 105 07/21/17 00:00 98.4 111 17 137/76 (96) 98 I/O 07/20/17 07/20/17 07/20/17 07/21/17 07/21/17 07/21/17 07:00 15:00 23:00 07:00 15:00 23:00 Intake Total 300 ml 800 ml 100 ml 480 ml Output Total 900 ml 500 ml 300 ml 200 ml Balance 300 ml -100 ml -500 ml -200 ml -200 ml 480 ml Intake Oral 300 ml 100 ml 480 ml IV Total 800 ml Output Urine Total 100 ml Gastric Drainage Total 900 ml 400 ml 300 ml 200 ml # Voids 2 1 4 Result Diagram: 07/21/1730 07/21/1730 Other Results Laboratory Tests Test 07/21/17 05:30 White Blood Count 9.9 Red Blood Count 3.36 Hemoglobin 11.6 Hematocrit 34.0 Mean Corpuscular Volume 101.1 Mean Corpuscular Hemoglobin 34.4 Mean Corpuscular Hemoglobin Concent 34.0 Red Cell Distribution Width 12.0 Platelet Count 303 Mean Platelet Volume 6.7 Neutrophils (%) (Auto) 79.9 Lymphocytes (%) (Auto) 7.3 Monocytes (%) (Auto) 11.4 Eosinophils (%) (Auto) 0.9 Basophils (%) (Auto) 0.5 Neutrophils # (Auto) 7.9 Lymphocytes # (Auto) 0.7 Monocytes # (Auto) 1.1 Eosinophils # (Auto) 0.1 Basophils # (Auto) 0.1 CBC Comment DIFF FINAL Differential Comment Blood Urea Nitrogen 2 Creatinine 0.33 Random Glucose 110 Calcium Level 8.2 Sodium Level 135 Potassium Level 3.0 Chloride Level 100 Carbon Dioxide Level 25.9 Anion Gap 9 Estimat Glomerular Filtration Rate 198 Date/Time Source Procedure Growth Status 07/19/17 02:00 Blood Peripheral Aerobic Blood Culture - Preliminary NO GROWTH IN 2 DAYS Resulted 07/19/17 02:00 Blood Peripheral Anaerobic Blood Culture - Preliminary NO GROWTH IN 2 DAYS Resulted Physical Exam Physical Exam VITAL SIGNS: Reviewed HEENT: Atraumatic, normocephalic. Eyes, negative conjunctival congestion or icterus. NG tube in the right nostril NECK: Supple. No increase in JVD. Negative thyromegaly. Central trachea. CHEST: Clear to auscultation. CARDIOVASCULAR: S1 and S2 audible. Unable to hear any S3 gallop. ABDOMEN: Soft. Nontender to mildly tender in the mid abdomen. No rebound or guarding. No rigidity. Mildly distended in the middle abdomen. EXTREMITIES: No cyanosis or pedal edema appreciated. CENTRAL NERVOUS SYSTEM: Alert and oriented. Normal facial features. Normal speech. Normal power and tone. SKIN: Warm and dry. PSYCHIATRIC: Appropriate mood and affect. A/P Assessment and Plan 1. Nausea, vomiting, abdominal pain secondary to small-bowel obstruction. 2. Hypokalemia. 3. Tachycardia. 4. Ovarian cancer bilateral and status post surgery. PLAN Labs reviewed hypokalemia plan for replacement Continue NG suction tachycardia --Beta pito po ,will dc and start iv B bloker Monitor blood pressure,high Monitor electrolytes Appreciate oncology input Continue IV hydration, monitor heart rate. Discussed with the patient and spouse at bedside. Discussed with Manjeet Buenrostro MD Jul 21, 2017 21:50
[2017-07-22] VITALS (7 sets, daily range): BP systolic 128–155; BP diastolic 83–97; PULSE 92–121; RESP 18–20; TEMP 97.6–98.7; O2SAT 97–99
[2017-07-22 06:12] LABS: HEMATOCRIT 34.4 % (35.0-46.0); MEAN CELL VOLUME 100.4 FL (80.0-100.0); MEAN CORPUSCULAR HEMOGLOBIN 34.5 PG (27.0-34.0); MEAN CORPUSCULAR HGB CONC 34.3 % (32.0-36.0); PLATELET COUNT 326 TH/MM3 (150-450); RED BLOOD COUNT 3.43 MIL/MM3 (4.00-5.30); RED CELL DISTRIBUTION WIDTH 11.9 % (11.6-17.2); REVIEW FLAG FINAL; WHITE BLOOD COUNT 9.7 TH/MM3 (4.0-11.0)
[2017-07-22 08:07] LABS: BICARBONATE 26.7 MEQ/L (21.0-32.0); POTASSIUM 3.4 MEQ/L (3.5-5.1)
--- NOTE | 2017-07-22 08:54 | HHI.PR ---
Subjective . No new c/o. No nausea. (+) flatus, reduced/absent abdominal pain. Hungry. No BM. Objective . Afeb VSS wbc 9.7 hgb > 10 NGT output ~ 30-40 ml/hr abdomen soft, NT, no rebound good BS Assessment/Plan . HD#4 Q&A Some clinical improvement begin cyclic clamping/unclamping NGT Clear liquids increase OOB activity, ambulation Patricia Rivera MD Jul 22, 2017 08:54
[2017-07-22] MEDS: PANTOPRAZOLE SODIUM 40 MG VIAL IV PUSH SCH ×2 (09:11→19:40)
[2017-07-22] MEDS: METOPROLOL TARTRATE 25 MG TAB PO SCH ×2 (09:12→19:41)
[2017-07-22] MEDS: SODIUM CHLORIDE 0.9% FLUSH 10 ML FLUSH IV FLUSH SCH ×2 (09:12→19:42)
[2017-07-22] MEDS: ENOXAPARIN SODIUM 40 MG/0.4 ML SYRINGE SQ SCH (09:12)
[2017-07-22] MEDS: D5-NS + KCL 20 MEQ INJ 1,000 ML IV SCH ×2 (10:37→23:30)
[2017-07-22] MEDS: ACETAMINOPHEN 1000 MG/100 ML 100 ML IV PRN ×2 (10:39→21:13)
--- NOTE | 2017-07-22 17:34 | HHI.PR ---
Subjective Remarks Patient has no discomfort in abdomen passing some gases per rectum . Also has very small bowel movement today No nausea vomiting no sob no chest pain Review of system for 10 point system otherwise unremarkable Objective Objective Results - Vital Signs Date Time Temp Pulse Resp B/P (MAP) Pulse Ox O2 Delivery O2 Flow Rate FiO2 07/22/17 12:00 97.9 95 18 147/92 (110) 97 07/22/17 08:00 98.7 101 18 150/96 (114) 97 07/22/17 03:48 98.5 96 19 145/91 (109) 97 07/22/17 00:22 98.0 92 19 128/83 (98) 99 07/21/17 21:00 20 07/21/17 20:00 74 07/21/17 19:58 113 20 157/98 (117) 96 I/O 07/21/17 07/21/17 07/21/17 07/22/17 07/22/17 07/22/17 07:00 15:00 23:00 07:00 15:00 23:00 Intake Total 100 ml 480 ml 340 ml Output Total 300 ml 200 ml Balance -200 ml -200 ml 480 ml 340 ml Intake Oral 100 ml 480 ml 240 ml IV Total 100 ml Gastric Drainage Total 300 ml 200 ml # Voids 1 4 1 # Bowel Movements 1 Result Diagram: 07/22/17 0559 07/22/17 0559 Other Results Laboratory Tests Test 07/22/17 05:59 White Blood Count 9.7 Red Blood Count 3.43 Hemoglobin 11.8 Hematocrit 34.4 Mean Corpuscular Volume 100.4 Mean Corpuscular Hemoglobin 34.5 Mean Corpuscular Hemoglobin Concent 34.3 Red Cell Distribution Width 11.9 Platelet Count 326 Mean Platelet Volume 6.6 Blood Urea Nitrogen 4 Creatinine 0.33 Random Glucose 114 Calcium Level 8.5 Sodium Level 136 Potassium Level 3.4 Chloride Level 103 Carbon Dioxide Level 26.7 Anion Gap 6 Estimat Glomerular Filtration Rate 198 Date/Time Source Procedure Growth Status 07/19/17 02:00 Blood Peripheral Aerobic Blood Culture - Preliminary NO GROWTH IN 3 DAYS Resulted 07/19/17 02:00 Blood Peripheral Anaerobic Blood Culture - Preliminary NO GROWTH IN 3 DAYS Resulted Physical Exam Physical Exam VITAL SIGNS: Reviewed HEENT: Atraumatic, normocephalic. Eyes, negative conjunctival congestion or icterus. NG tube in the right nostril NECK: Supple. No increase in JVD. Negative thyromegaly. Central trachea. CHEST: Clear to auscultation. CARDIOVASCULAR: S1 and S2 audible. Unable to hear any S3 gallop. ABDOMEN: Soft. Nontender. No rebound or guarding. No rigidity. Mildly distended in the middle abdomen. EXTREMITIES: No cyanosis or pedal edema appreciated. CENTRAL NERVOUS SYSTEM: Alert and oriented. Normal facial features. Normal speech. Normal power and tone. SKIN: Warm and dry. PSYCHIATRIC: Appropriate mood and affect. A/P Assessment and Plan 1. Nausea, vomiting, abdominal pain secondary to small-bowel obstruction. 2. Hypokalemia. 3. Tachycardia. 4. Ovarian cancer bilateral and status post surgery. PLAN Labs reviewed hypokalemia plan for replacement Continue NG suction intermittent basis tachycardia --Beta pito po , stable Monitor blood pressure,high Monitor electrolytes Appreciate oncology input Continue IV hydration, monitor heart rate. Discussed with the patient and spouse at bedside. Discussed with Manjeet Buenrostro MD Jul 22, 2017 17:34
[2017-07-22] MEDS ORDERED: POTASSIUM CHLOR 20 MEQ PREMIX 100 ML IV ONE (17:45)
[2017-07-23] VITALS (9 sets, daily range): BP systolic 144–169; BP diastolic 93–112; PULSE 84–116; RESP 16–20; TEMP 98.1–98.8; O2SAT 98–99
[2017-07-23] MEDS: ACETAMINOPHEN 1000 MG/100 ML 100 ML IV PRN ×3 (05:31→23:04)
[2017-07-23] MEDS: D5-NS + KCL 20 MEQ INJ 1,000 ML IV SCH ×3 (07:30→23:10)
[2017-07-23 07:35] LABS: BICARBONATE 26.5 MEQ/L (21.0-32.0); POTASSIUM 3.6 MEQ/L (3.5-5.1)
[2017-07-23] MEDS: ENOXAPARIN SODIUM 40 MG/0.4 ML SYRINGE SQ SCH (08:50)
[2017-07-23] MEDS: METOPROLOL TARTRATE 25 MG TAB PO SCH (08:50)
[2017-07-23] MEDS: PANTOPRAZOLE SODIUM 40 MG VIAL IV PUSH SCH ×2 (08:51→19:28)
[2017-07-23] MEDS: SODIUM CHLORIDE 0.9% FLUSH 10 ML FLUSH IV FLUSH SCH ×2 (08:51→19:28)
--- NOTE | 2017-07-23 11:31 | HHI.PR ---
Subjective Remarks Patient has no discomfort in abdomen passing some gases per rectum . Also has very small bowel movement today again No nausea vomiting no sob no chest pain Review of system for 10 point system otherwise unremarkable Objective Objective Results - Vital Signs Date Time Temp Pulse Resp B/P (MAP) Pulse Ox O2 Delivery O2 Flow Rate FiO2 07/23/17 09:01 98.1 116 16 169/112 (131) 98 07/23/17 06:31 20 07/23/17 05:18 98.2 112 20 148/98 (115) 98 07/23/17 01:30 98.2 102 20 153/96 (115) 99 07/22/17 21:00 121 07/22/17 19:38 102 20 153/86 (108) 98 07/22/17 16:07 97.6 119 20 155/97 (116) 97 07/22/17 12:00 97.9 95 18 147/92 (110) 97 I/O 07/22/17 07/22/17 07/22/17 07/23/17 07/23/17 07/23/17 07:00 15:00 23:00 07:00 15:00 23:00 Intake Total 340 ml 480 ml 8706 ml Output Total 150 ml 750 ml Balance -150 ml 340 ml 480 ml 7956 ml Intake Oral 240 ml 480 ml 360 ml IV Total 100 ml 8346 ml Output Urine Total 150 ml Gastric Drainage Total 150 ml 600 ml # Voids 1 4 3 # Bowel Movements 1 Result Diagram: 07/22/17 0559 07/23/17 0515 Other Results Laboratory Tests Test 07/23/17 05:15 Blood Urea Nitrogen 3 Creatinine 0.33 Random Glucose 104 Calcium Level 9.0 Sodium Level 136 Potassium Level 3.6 Chloride Level 103 Carbon Dioxide Level 26.5 Anion Gap 7 Estimat Glomerular Filtration Rate 198 Date/Time Source Procedure Growth Status 07/19/17 02:00 Blood Peripheral Aerobic Blood Culture - Preliminary NO GROWTH IN 4 DAYS Resulted 07/19/17 02:00 Blood Peripheral Anaerobic Blood Culture - Preliminary NO GROWTH IN 4 DAYS Resulted Physical Exam Physical Exam VITAL SIGNS: Reviewed HEENT: Atraumatic, normocephalic. Eyes, negative conjunctival congestion or icterus. NG tube in the right nostril NECK: Supple. No increase in JVD. Negative thyromegaly. Central trachea. CHEST: Clear to auscultation. CARDIOVASCULAR: S1 and S2 audible. Unable to hear any S3 gallop. ABDOMEN: Soft. Nontender. No rebound or guarding. No rigidity. Mildly distended in the middle abdomen. EXTREMITIES: No cyanosis or pedal edema appreciated. CENTRAL NERVOUS SYSTEM: Alert and oriented. Normal facial features. Normal speech. Normal power and tone. SKIN: Warm and dry. PSYCHIATRIC: Appropriate mood and affect. A/P Assessment and Plan 1. Nausea, vomiting, abdominal pain secondary to small-bowel obstruction. 2. Hypokalemia. 3. Tachycardia. 4. Ovarian cancer bilateral and status post surgery. PLAN Labs reviewed hypokalemia improved Continue NG suction intermittent basis tachycardia --Beta pito po , with high blood pressure. Will DC by mouth Lopressor and a start IV Lopressor for the time being Monitor blood pressure,high Monitor electrolytes Appreciate oncology input Continue IV hydration, monitor heart rate. Discussed with the patient and spouse at bedside. Discussed with Manjeet Buenrostro MD Jul 23, 2017 11:31
[2017-07-23] MEDS: METOPROLOL TARTRATE 5 MG/5 ML VIAL IV PUSH SCH ×3 (12:07→23:03)
[2017-07-24] VITALS (9 sets, daily range): BP systolic 141–159; BP diastolic 86–99; PULSE 82–116; RESP 16–18; TEMP 98–98.9; O2SAT 95–97
[2017-07-24 04:07] LABS: MEAN CORPUSCULAR HEMOGLOBIN 34.9 PG (27.0-34.0); MEAN CORPUSCULAR HGB CONC 34.5 % (32.0-36.0); PLATELET COUNT 380 TH/MM3 (150-450); RED BLOOD COUNT 3.47 MIL/MM3 (4.00-5.30); RED CELL DISTRIBUTION WIDTH 12.4 % (11.6-17.2); REVIEW FLAG FINAL; WHITE BLOOD COUNT 9.4 TH/MM3 (4.0-11.0)
[2017-07-24 04:15] LABS: BICARBONATE 26.1 MEQ/L (21.0-32.0); POTASSIUM 3.8 MEQ/L (3.5-5.1)
[2017-07-24] MEDS: METOPROLOL TARTRATE 5 MG/5 ML VIAL IV PUSH SCH ×4 (05:02→23:39)
[2017-07-24] MEDS: ACETAMINOPHEN 1000 MG/100 ML 100 ML IV PRN ×4 (05:06→23:49)
[2017-07-24] MEDS: PANTOPRAZOLE SODIUM 40 MG VIAL IV PUSH SCH ×2 (09:18→20:55)
[2017-07-24] MEDS: ENOXAPARIN SODIUM 40 MG/0.4 ML SYRINGE SQ SCH (09:18)
[2017-07-24] MEDS: SODIUM CHLORIDE 0.9% FLUSH 10 ML FLUSH IV FLUSH SCH ×2 (09:18→20:56)
--- NOTE | 2017-07-24 13:16 | HHI.PR ---
Subjective Remarks Patient has no discomfort in abdomen passing some gases per rectum . Also has very small bowel movement today again No nausea vomiting no sob no chest pain Review of system for 10 point system otherwise unremarkable Objective Objective Results - Vital Signs Date Time Temp Pulse Resp B/P (MAP) Pulse Ox O2 Delivery O2 Flow Rate FiO2 07/24/17 12:42 21 07/24/17 09:12 98.9 116 16 146/92 (110) 95 07/24/17 04:00 98.3 103 16 144/91 (108) 97 07/24/17 00:00 82 07/23/17 23:00 98.1 94 16 150/94 (112) 99 07/23/17 21:24 21 07/23/17 20:15 84 07/23/17 20:00 98.3 105 16 151/95 (113) 98 07/23/17 17:10 98.8 91 17 159/93 (115) 98 I/O 07/23/17 07/23/17 07/23/17 07/24/17 07/24/17 07/24/17 07:00 15:00 23:00 07:00 15:00 23:00 Intake Total 8706 ml 1622 ml 100 ml Output Total 750 ml 300 ml 100 ml Balance 7956 ml 1322 ml 0 ml Intake Oral 360 ml 250 ml IV Total 8346 ml 1372 ml 100 ml Output Urine Total 150 ml Gastric Drainage Total 600 ml 300 ml 100 ml # Voids 3 2 2 Result Diagram: 07/24/17 0332 07/24/17 0332 Other Results Laboratory Tests Test 07/24/17 03:32 White Blood Count 9.4 Red Blood Count 3.47 Hemoglobin 12.1 Hematocrit 35.0 Mean Corpuscular Volume 101.0 Mean Corpuscular Hemoglobin 34.9 Mean Corpuscular Hemoglobin Concent 34.5 Red Cell Distribution Width 12.4 Platelet Count 380 Mean Platelet Volume 6.6 Blood Urea Nitrogen 3 Creatinine 0.37 Random Glucose 104 Calcium Level 8.6 Sodium Level 136 Potassium Level 3.8 Chloride Level 103 Carbon Dioxide Level 26.1 Anion Gap 7 Estimat Glomerular Filtration Rate 174 Date/Time Source Procedure Growth Status 07/19/17 02:00 Blood Peripheral Aerobic Blood Culture - Final NO GROWTH IN 5 DAYS Complete 07/19/17 02:00 Blood Peripheral Anaerobic Blood Culture - Final NO GROWTH IN 5 DAYS Complete Physical Exam Physical Exam VITAL SIGNS: Reviewed HEENT: Atraumatic, normocephalic. Eyes, negative conjunctival congestion or icterus. NG tube in the right nostril NECK: Supple. No increase in JVD. Negative thyromegaly. Central trachea. CHEST: Clear to auscultation. CARDIOVASCULAR: S1 and S2 audible. Unable to hear any S3 gallop. ABDOMEN: Soft. Nontender. No rebound or guarding. No rigidity. Mildly distended in the middle abdomen. EXTREMITIES: No cyanosis or pedal edema appreciated. CENTRAL NERVOUS SYSTEM: Alert and oriented. Normal facial features. Normal speech. Normal power and tone. SKIN: Warm and dry. PSYCHIATRIC: Appropriate mood and affect. A/P Assessment and Plan 1. Nausea, vomiting, abdominal pain secondary to small-bowel obstruction. 2. Hypokalemia. 3. Tachycardia. 4. Ovarian cancer bilateral and status post surgery. PLAN Labs reviewed hypokalemia improved Continue NG suction intermittent basis tachycardia --Beta pito po DC by mouth Lopressor and will inc IV Lopressor for the time being Monitor blood pressure,high Monitor electrolytes Appreciate oncology input Continue IV hydration, monitor heart rate. Discussed with the patient and spouse at bedside. Discussed with Manjeet Buenrostro MD Jul 24, 2017 13:16
[2017-07-24] MEDS: D5-NS + KCL 20 MEQ INJ 1,000 ML IV SCH (20:58)
[2017-07-25] VITALS (7 sets, daily range): BP systolic 147–164; BP diastolic 92–107; PULSE 97–113; RESP 16–20; TEMP 98.2–98.5; O2SAT 94–98
[2017-07-25 03:42] LABS: HEMATOCRIT 34.4 % (35.0-46.0); MEAN CELL VOLUME 102.1 FL (80.0-100.0); MEAN CORPUSCULAR HEMOGLOBIN 34.5 PG (27.0-34.0); MEAN CORPUSCULAR HGB CONC 33.8 % (32.0-36.0); PLATELET COUNT 364 TH/MM3 (150-450); RED BLOOD COUNT 3.37 MIL/MM3 (4.00-5.30); RED CELL DISTRIBUTION WIDTH 12.7 % (11.6-17.2); REVIEW FLAG FINAL; WHITE BLOOD COUNT 9.9 TH/MM3 (4.0-11.0)
[2017-07-25 03:50] LABS: BICARBONATE 24.9 MEQ/L (21.0-32.0); POTASSIUM 3.9 MEQ/L (3.5-5.1)
[2017-07-25] MEDS: METOPROLOL TARTRATE 5 MG/5 ML VIAL IV PUSH SCH ×3 (05:47→17:21)
[2017-07-25] MEDS: ACETAMINOPHEN 1000 MG/100 ML 100 ML IV PRN ×2 (05:56→11:51)
--- NOTE | 2017-07-25 08:55 | PD.ONC.PN ---
Subjective Subjective Remarks Mrs. Michael was seen with at bedside states she has had the NG clamped 3 hours on and 1 hour off without any further nausea or vomiting. she has been OOB to ambulate 2 small BMs over the weekend many question asked and answered to the best of my ability awaiting x ray results to see if general surgery needs to be consulted Objective Data Date Time Temp Pulse Resp B/P (MAP) Pulse Ox O2 Delivery O2 Flow Rate FiO2 07/25/17 03:15 98.5 97 16 147/98 (114) 97 07/24/17 23:38 98.3 94 16 146/91 (109) 97 07/24/17 21:30 97 07/24/17 20:00 98.0 110 16 141/86 (104) 97 07/24/17 17:41 98.3 115 18 156/99 (118) 96 07/24/17 14:52 98.4 105 18 159/93 (115) 97 07/24/17 12:42 21 07/24/17 09:12 98.9 116 16 146/92 (110) 95 07/25/17 07/25/17 07/25/17 07:00 15:00 23:00 Intake Total 1000 ml Output Total 100 ml Balance 900 ml Result Diagram: 07/25/17 0320 07/25/17 0320 Laboratory Results Laboratory Tests Test 07/25/17 03:20 White Blood Count 9.9 TH/MM3 Red Blood Count 3.37 MIL/MM3 Hemoglobin 11.6 GM/DL Hematocrit 34.4 % Mean Corpuscular Volume 102.1 FL Mean Corpuscular Hemoglobin 34.5 PG Mean Corpuscular Hemoglobin Concent 33.8 % Red Cell Distribution Width 12.7 % Platelet Count 364 TH/MM3 Mean Platelet Volume 6.4 FL Blood Urea Nitrogen 5 MG/DL Creatinine 0.37 MG/DL Random Glucose 96 MG/DL Calcium Level 8.4 MG/DL Sodium Level 135 MEQ/L Potassium Level 3.9 MEQ/L Chloride Level 104 MEQ/L Carbon Dioxide Level 24.9 MEQ/L Anion Gap 6 MEQ/L Estimat Glomerular Filtration Rate 174 ML/MIN Imaging Studies Last Impressions Abdomen X-Ray 07/19/17 0000 Signed Impressions: Service Date/Time: Wednesday, July 19, 2017 08:52 - CONCLUSION: Small bowel ileus characteristic of a partial small bowel obstruction. Nasogastric tube in good position. Jose David Stahl MD Administered Medications Medications (Trade) Dose Ordered Sig/Olivier Route PRN Reason Start Time Stop Time Status Last Admin Dose Admin Sodium Chloride (NS Flush) 2 ml BID IV FLUSH 07/19/17 09:00 07/24/17 09:18 Enoxaparin Sodium (Lovenox Inj) 40 mg Q24H SQ 07/19/17 09:00 07/24/17 09:18 Acetaminophen 100 ml @ 400 mls/hr Q6H PRN IV PAIN SCALE 4 TO 10 07/19/17 17:00 07/25/17 05:56 Potassium Chloride/Dextrose/ Sod Cl 1,000 ml @ 84 mls/hr [id number] IV 07/20/17 08:00 07/24/17 20:58 Pantoprazole Sodium (Protonix Inj) 40 mg Q12HR IV PUSH 07/20/17 20:00 07/24/17 20:55 Metoprolol Tartrate (Lopressor Inj) 5 mg Q6H IV PUSH 07/24/17 18:00 07/25/17 05:47 Objective Remarks GENERAL: thin with NG tube to LIWS SKIN: Warm and dry. HEAD: Normocephalic. EYES: No scleral icterus. No injection or drainage. CARDIOVASCULAR: Regular rate and rhythm without murmurs. RESPIRATORY: Breath sounds equal bilaterally. No accessory muscle use. GASTROINTESTINAL: Abdomen soft, non-tender, mild distention + BS x 4 EXTREMITIES: No cyanosis, or edema. MUSCULOSKELETAL: Adequate muscle tone. NEUROLOGICAL: No obvious focal deficit. Awake, alert, and oriented x3. PSYCHIATRIC: Appropriate mood and affect; insight and judgment normal. Assessment/Plan Problem List: (1) Ovarian cancer, bilateral ICD Codes: C56.1 - Malignant neoplasm of right ovary; C56.2 - Malignant neoplasm of left ovary Status: Chronic Plan: s/p completion of line 1 taxol and Carbo aprox [address] concerning for recurrent disease will obtain PET/CT as outpt once discharged elevated CA 125 (2) SBO (small bowel obstruction) ICD Codes: K56.609 - Unspecified intestinal obstruction, unspecified as to partial versus complete obstruction Status: Acute Plan: NG tube to LIWS 3 hours off 1 hour clamped...pt denies any N/V flushing NG per shift will continue supportive care OOB to ambulate consider general surgery consult if xray not improved Attending Statement discussed with Dr. Rivera and he is in agreement Edita Rosas Jul 25, 2017 08:55
[2017-07-25] MEDS: PANTOPRAZOLE SODIUM 40 MG VIAL IV PUSH SCH ×2 (09:09→21:25)
[2017-07-25] MEDS: ENOXAPARIN SODIUM 40 MG/0.4 ML SYRINGE SQ SCH (09:09)
[2017-07-25] MEDS: D5-NS + KCL 20 MEQ INJ 1,000 ML IV SCH ×2 (09:09→21:32)
[2017-07-25] MEDS: SODIUM CHLORIDE 0.9% FLUSH 10 ML FLUSH IV FLUSH SCH ×2 (09:09→21:26)
--- NOTE | 2017-07-25 10:10 | HHI.PR ---
Subjective Remarks Patient has no discomfort in abdomen passing some gases per rectum . Also has very small bowel movement today again No nausea vomiting no sob no chest pain Review of system for 10 point system otherwise unremarkable family at [facility] Objective Objective Results - Vital Signs Date Time Temp Pulse Resp B/P (MAP) Pulse Ox O2 Delivery O2 Flow Rate FiO2 07/25/17 08:49 98.2 97 16 158/92 (114) 98 07/25/17 03:15 98.5 97 16 147/98 (114) 97 07/24/17 23:38 98.3 94 16 146/91 (109) 97 07/24/17 21:30 97 07/24/17 20:00 98.0 110 16 141/86 (104) 97 07/24/17 17:41 98.3 115 18 156/99 (118) 96 07/24/17 14:52 98.4 105 18 159/93 (115) 97 07/24/17 12:42 21 I/O 07/24/17 07/24/17 07/24/17 07/25/17 07/25/17 07/25/17 07:00 15:00 23:00 07:00 15:00 23:00 Intake Total 100 ml 1000 ml 1000 ml Output Total 100 ml 100 ml Balance 0 ml 1000 ml 900 ml IV Total 100 ml 1000 ml 1000 ml Gastric Drainage Total 100 ml 100 ml # Voids 2 2 3 Result Diagram: 07/25/17 0320 07/25/17 0320 Other Results Laboratory Tests Test 07/25/17 03:20 White Blood Count 9.9 Red Blood Count 3.37 Hemoglobin 11.6 Hematocrit 34.4 Mean Corpuscular Volume 102.1 Mean Corpuscular Hemoglobin 34.5 Mean Corpuscular Hemoglobin Concent 33.8 Red Cell Distribution Width 12.7 Platelet Count 364 Mean Platelet Volume 6.4 Blood Urea Nitrogen 5 Creatinine 0.37 Random Glucose 96 Calcium Level 8.4 Sodium Level 135 Potassium Level 3.9 Chloride Level 104 Carbon Dioxide Level 24.9 Anion Gap 6 Estimat Glomerular Filtration Rate 174 Date/Time Source Procedure Growth Status 07/19/17 02:00 Blood Peripheral Aerobic Blood Culture - Final NO GROWTH IN 5 DAYS Complete 07/19/17 02:00 Blood Peripheral Anaerobic Blood Culture - Final NO GROWTH IN 5 DAYS Complete Physical Exam Physical Exam VITAL SIGNS: Reviewed HEENT: Atraumatic, normocephalic. Eyes, negative conjunctival congestion or icterus. NG tube in the right nostril NECK: Supple. No increase in JVD. Negative thyromegaly. Central trachea. CHEST: Clear to auscultation. CARDIOVASCULAR: S1 and S2 audible. Unable to hear any S3 gallop. ABDOMEN: Soft. Nontender. No rebound or guarding. No rigidity. Mildly distended in the middle abdomen. EXTREMITIES: No cyanosis or pedal edema appreciated. CENTRAL NERVOUS SYSTEM: Alert and oriented. Normal facial features. Normal speech. Normal power and tone. SKIN: Warm and dry. PSYCHIATRIC: Appropriate mood and affect. A/P Assessment and Plan 1. Nausea, vomiting, abdominal pain secondary to small-bowel obstruction. 2. Hypokalemia. 3. Tachycardia. 4. Ovarian cancer bilateral and status post surgery. PLAN Labs reviewed hypokalemia improved xray kub report reviewed still partial small Bowel obs. will defer dicision about conservative vs sx for dr andrea Continue NG suction intermittent basis tachycardia better on IV Lopressor Monitor blood pressure Monitor electrolytes Appreciate oncology input Continue IV hydration, monitor heart rate. Discussed with the patient and spouse at bedside. Discussed with Manjeet Buenrostro MD Jul 25, 2017 10:10
--- NOTE | 2017-07-25 12:05 | RADRPT ---
EXAM DATE/TIME: 07/25/2017 11:15 [place] COMPARISON: ABDOMEN KUB ONLY, July 19, 2017, 8:52. INDICATIONS : Obstruction. MEDICAL HISTORY : Hypertension. Ovarian cancer. SURGICAL HISTORY : Infusaport. ENCOUNTER: Subsequent ACUITY: 2 weeks PAIN SCORE: 0/10 LOCATION: Bilateral abdomen FINDINGS: Supine view of the abdomen was performed. Multiple dilated loops of small bowel. Nasogastric tube tip in stomach. No abnormal masses, calcifications, or organomegaly is seen. The osseous structures are unremarkable. CONCLUSION: Multiple dilated loops of small bowel which can be seen with partial obstruction. Benigno Valle MD on July 25, 2017 at 12:00 Board Certified Radiologist. This report was verified electronically.
[2017-07-25] MEDS: KETOROLAC TROMETHAMINE 30 MG/ML (IVP) VIAL IV PUSH SCH (17:20)
[2017-07-26] VITALS (11 sets, daily range): BP systolic 122–161; BP diastolic 79–101; PULSE 87–123; RESP 14–17; TEMP 98–98.7; O2SAT 95–99
[2017-07-26] MEDS: KETOROLAC TROMETHAMINE 30 MG/ML (IVP) VIAL IV PUSH SCH ×5 (00:10→23:16)
[2017-07-26] MEDS: METOPROLOL TARTRATE 5 MG/5 ML VIAL IV PUSH SCH ×5 (00:10→23:16)
--- NOTE | 2017-07-26 07:50 | HHI.PR ---
Subjective . No new c/o. Intermittent flatus, no N/V, No additional BM Objective . Afeb, VSS, labs yesterday stable/wnl Abdomen mild-moderate distention, non-acute, BS present x4 Assessment/Plan . Extensive Q&A Small bowel series with gastrografin ordered General surgery consult requested for their input, Mary&Patricia Marr MD Jul 26, 2017 07:50
[2017-07-26] MEDS: PANTOPRAZOLE SODIUM 40 MG VIAL IV PUSH SCH ×2 (09:15→20:02)
[2017-07-26] MEDS: ENOXAPARIN SODIUM 40 MG/0.4 ML SYRINGE SQ SCH (09:16)
[2017-07-26] MEDS ORDERED: DIATRIZOATE MEGLUM/DIATRIZOATE SOD 120 ML BTL (for RAD DIAG) NG ONE (10:55)
--- NOTE | 2017-07-26 11:31 | PD.CONS ---
cc: Xiao Naidu MD HPI Service General Surgery Consult Requested By Dr. Rivera Reason for Consult Evaluation for possible small bowel obstruction Primary Care Physician Kennedi Loera M.D. History of Present Illness This is a 66 year old female with a past medical history of ovarian cancer who has completed chemotherapy in March of this year. She developed nausea vomiting and diarrhea about 10 ago. She saw her PCP who thought it might be food positioning. The patient had an appointment with Dr. Rivera and he ordered a CT abdomen/pelvis. She was found to have a partial small bowel obstruction. She was advised to go to the ED if nausea/vomiting persisted. She came to the ED last Tuesday. An NGT tube was placed to LIWS. The patient has not had much progress since this and has continue nausea, vomiting and abdominal distention. A General Surgery consultation has been requested for evaluation of small bowel obstruction. Review of Systems Constitutional: COMPLAINS OF: Change in appetite, DENIES: Fatigue Endocrine: DENIES: Polydipsia, Polyuria, Polyphagia Eyes: DENIES: Diplopia Ears, nose, mouth, throat: DENIES: Hearing loss Respiratory: DENIES: Cough Cardiovascular: DENIES: Chest pain Gastrointestinal: COMPLAINS OF: Abdominal pain, Nausea, Vomiting Genitourinary: DENIES: Urinary frequency Musculoskeletal: DENIES: Joint pain Integumentary: DENIES: Abnormal pigmentation Hematologic/lymphatic: DENIES: Bruising Neurologic: DENIES: Headache, Localized weakness Psychiatric: DENIES: Mood changes, Depression, Hallucinations Past Family Social History Past Medical History Ovarian Cancer Past Surgical History Laparoscopic hysterectomy, BSO and debulking Infusaport placement Reported Medications Metoprolol Oxycodone Ondansetron Omeprazole Metoclopramide Dexamethasone Allergies: Coded Allergies: penicillin G (Unverified Allergy, Severe, Diarrhea, 07/19/17) Active Ordered Medications Current Medications Medications (Trade) Dose Ordered Sig/Olivier Route Start Time Stop Time Status Last Admin (NS Flush) 2 ml UNSCH PRN IV FLUSH 07/19/17 04:00 (NS Flush) 2 ml BID IV FLUSH 07/19/17 09:00 07/25/17 09:09 (Zofran Inj) 4 mg Q6H PRN IVP 07/19/17 04:00 (Lovenox Inj) 40 mg Q24H SQ 07/19/17 09:00 07/26/17 09:16 (Narcan Inj) 0.4 mg UNSCH PRN IV PUSH 07/19/17 04:00 (Milk Of Magnesia Liq) 30 ml Q12H PRN PO 07/19/17 04:00 (Senokot) 17.2 mg Q12H PRN PO 07/19/17 04:00 (Dulcolax Supp) 10 mg DAILY PRN RECTAL 07/19/17 04:00 (Lactulose Liq) 30 ml DAILY PRN PO 07/19/17 04:00 (Morphine Inj) 2 mg Q3H PRN IV PUSH 07/19/17 04:00 Future Hold (Morphine Inj) 4 mg Q3H PRN IV PUSH 07/19/17 04:00 Future Hold Acetaminophen 100 ml @ 400 mls/hr Q6H PRN IV 07/19/17 17:00 07/25/17 11:51 Potassium Chloride/Dextrose/ Sod Cl 1,000 ml @ 84 mls/hr [id number] IV 07/20/17 08:00 07/25/17 21:32 (Protonix Inj) 40 mg Q12HR IV PUSH 07/20/17 20:00 07/26/17 09:15 (Lopressor Inj) 5 mg Q6H IV PUSH 07/24/17 18:00 07/26/17 05:18 (Toradol Inj) 15 mg Q6HR IV PUSH 07/25/17 18:00 07/27/17 17:00 07/26/17 05:18 Family History No family history of esophagus, colon or rectal cancers Social History Denies tobacco use + ETOH use---1-2 glasses of wine with dinner Denies illicit drug use Physical Exam Vital Signs Vital Signs Date Time Temp Pulse Resp B/P (MAP) Pulse Ox O2 Delivery O2 Flow Rate FiO2 07/26/17 10:16 97 07/26/17 09:17 98.7 112 16 150/95 (113) 97 07/26/17 06:15 18 07/26/17 05:16 98.6 91 16 148/89 (108) 96 07/26/17 04:04 87 07/26/17 00:07 98.4 95 15 127/82 (97) 99 07/26/17 00:03 91 07/25/17 21:36 98.3 111 20 155/92 (113) 98 07/25/17 20:09 113 07/25/17 17:23 98.5 111 16 164/107 (126) 94 07/25/17 11:55 98.4 107 16 157/95 (115) 96 Physical Exam GENERAL: 66 year old female resting in bed in no acute distress. SKIN: Warm and dry. HEAD: Atraumatic. Normocephalic. EYES: Pupils equal and round. No scleral icterus. No injection or drainage. ENT: No nasal bleeding or discharge. Mucous membranes pink and moist. NECK: Trachea midline. CARDIOVASCULAR: Regular rate and rhythm. RESPIRATORY: No accessory muscle use. Clear to auscultation. Breath sounds equal bilaterally. GASTROINTESTINAL: Abdomen distended; minimal tenderness with palpation. Lap sites well healed. NGT in place. MUSCULOSKELETAL: Extremities without clubbing, cyanosis, or edema. No obvious deformities. NEUROLOGICAL: Awake and alert. No obvious cranial nerve deficits. Motor grossly within normal limits. Five out of 5 muscle strength in the arms and legs. Normal speech. PSYCHIATRIC: Appropriate mood and affect; insight and judgment normal. Laboratory Date/Time Source Procedure Growth Status 07/19/17 02:00 Blood Peripheral Aerobic Blood Culture - Final NO GROWTH IN 5 DAYS Complete 07/19/17 02:00 Blood Peripheral Anaerobic Blood Culture - Final NO GROWTH IN 5 DAYS Complete Result Diagram: 07/25/17 0320 07/25/17 0320 Imaging Last 48 hours Impressions Abdomen X-Ray 07/25/17 0847 Signed Impressions: Service Date/Time: Tuesday, July 25, 2017 11:15 - CONCLUSION: Multiple dilated loops of small bowel which can be seen with partial obstruction. Benigno Valle MD Assessment and Plan Assessment and Plan 66 year old female with ovarian cancer; questionable SBO on imaging -Plan for SBFT today -Will follow images -Okay for a few ice chips -NGT to LIWS; okay to clamp so patient can ambulate -Pending results of SBFT may need operative intervention -Thank you for this consult; We will continue to follow I CERTIFY AND ATTEST THAT I PERSONALLY SAW AND EXAMINED THE PATIENT. I REVIEWED CARE PLAN WITH HER AND HER . SHE HAS NOT PROGRESSED WITH MEDICAL MANAGEMENT FOR SBO AND REQUIRES OPERATIVE INTERVENTION. RISK OF RECURRENCE OF CANCER IS HIGH. PATIENT AND UNDERSTAND AND AGREE TO GO TO [facility]. XIAO NAIDU MD FACS Discussed Condition With Dr. Naidu Mr. and . Alec Kriss Gamble Jul 26, 2017 11:31 Xiao Naidu MD Jul 30, 2017 17:00
--- NOTE | 2017-07-26 12:27 | HHI.PR ---
Subjective Remarks Patient has no discomfort in abdomen passing some gases per rectum . No bowel movement today No nausea vomiting no sob no chest pain Review of system for 10 point system otherwise unremarkable family at bedisde Objective Objective Results - Vital Signs Date Time Temp Pulse Resp B/P (MAP) Pulse Ox O2 Delivery O2 Flow Rate FiO2 07/26/17 10:16 97 07/26/17 09:17 98.7 112 16 150/95 (113) 97 07/26/17 06:15 18 07/26/17 05:16 98.6 91 16 148/89 (108) 96 07/26/17 04:04 87 07/26/17 00:07 98.4 95 15 127/82 (97) 99 07/26/17 00:03 91 07/25/17 21:36 98.3 111 20 155/92 (113) 98 07/25/17 20:09 113 07/25/17 17:23 98.5 111 16 164/107 (126) 94 I/O 07/25/17 07/25/17 07/25/17 07/26/17 07/26/17 07/26/17 07:00 15:00 23:00 07:00 15:00 23:00 Intake Total 1000 ml 30 ml 1036 ml Output Total 100 ml 300 ml Balance 900 ml 30 ml 736 ml IV Total 1000 ml 1036 ml Tube Irrigant 30 ml Gastric Drainage Total 100 ml 300 ml # Voids 3 3 Result Diagram: 07/25/17 0320 07/25/17 0320 Other Results Date/Time Source Procedure Growth Status 07/19/17 02:00 Blood Peripheral Aerobic Blood Culture - Final NO GROWTH IN 5 DAYS Complete 07/19/17 02:00 Blood Peripheral Anaerobic Blood Culture - Final NO GROWTH IN 5 DAYS Complete Physical Exam Physical Exam VITAL SIGNS: Reviewed HEENT: Atraumatic, normocephalic. Eyes, negative conjunctival congestion or icterus. NG tube in the right nostril NECK: Supple. No increase in JVD. Negative thyromegaly. Central trachea. CHEST: Clear to auscultation. CARDIOVASCULAR: S1 and S2 audible. Unable to hear any S3 gallop. ABDOMEN: Soft. Nontender. No rebound or guarding. No rigidity. some distention in the middle abdomen. EXTREMITIES: No cyanosis or pedal edema appreciated. CENTRAL NERVOUS SYSTEM: Alert and oriented. Normal facial features. Normal speech. Normal power and tone. SKIN: Warm and dry. PSYCHIATRIC: Appropriate mood and affect. A/P Assessment and Plan 1. Nausea, vomiting, abdominal pain secondary to small-bowel obstruction. 2. Hypokalemia. 3. Tachycardia. 4. Ovarian cancer bilateral and status post surgery. PLAN Labs reviewed hypokalemia improved xray kub report reviewed. awaiting report for xray small Bowel still partial small Bowel obs. will defer dicision about conservative vs sx for dr andrea Continue NG suction intermittent basis tachycardia better on IV Lopressor Monitor blood pressure Monitor electrolytes Appreciate oncology input Continue IV hydration, monitor heart rate. Discussed with the patient and spouse at bedside. Discussed with Manjeet Buenrostro MD Jul 26, 2017 12:27
[2017-07-26] MEDS: SODIUM CHLORIDE 0.9% FLUSH 10 ML FLUSH IV FLUSH SCH ×2 (14:13→20:03)
[2017-07-26] MEDS: D5-NS + KCL 20 MEQ INJ 1,000 ML IV SCH ×2 (14:14→18:55)
[2017-07-27] VITALS (11 sets, daily range): BP systolic 124–146; BP diastolic 68–85; PULSE 86–110; RESP 17–18; TEMP 98.1–98.3; O2SAT 95–98
--- NOTE | 2017-07-27 05:32 | RADRPT ---
EXAM DATE/TIME: 07/26/2017 10:49 [place] COMPARISON: No previous studies available for comparison. INDICATIONS : Small Bowel Obstruction vs Ileus. A few days with no bowel movements. FLUORO TIME: 0.0 minutes IMAGE COUNT: 13 CONTRAST: Gastrobolivar IMAGING TIME(S): 15 min, 30 min, 45 min, 1 hr, 1.5 hrs, 2.5 hrs4.5hr,5.5hr,7.5hr,10hr,18hr MEDICAL HISTORY : Hypertension. Ovarian cancer. Melanoma. SURGICAL HISTORY : Hysterectomy. 01/2017. ENCOUNTER: Subsequent ACUITY: 1 week PAIN SCORE: 2/10 LOCATION: Bilateral Abdomen. FINDINGS: Colorectal demonstrates findings of small bowel obstruction. No organomegaly is evident. No free air is identified. Radiographs obtained over 18 hours demonstrate no contrast reaching the colon. The findings are tierra tible with small bowel obstruction. There is diffusely dilated loops of small bowel. CONCLUSION: 1. Findings compatible with small bowel obstruction. Silviano Dang MD on July 27, 2017 at 5:29 Board Certified Radiologist. This report was verified electronically.
[2017-07-27] MEDS: D5-NS + KCL 20 MEQ INJ 1,000 ML IV SCH ×2 (05:41→18:32)
[2017-07-27] MEDS: METOPROLOL TARTRATE 5 MG/5 ML VIAL IV PUSH SCH ×3 (05:42→18:36)
[2017-07-27] MEDS: KETOROLAC TROMETHAMINE 30 MG/ML (IVP) VIAL IV PUSH SCH ×2 (05:42→11:52)
[2017-07-27 06:35] LABS: BICARBONATE 27.7 MEQ/L (21.0-32.0); POTASSIUM 3.9 MEQ/L (3.5-5.1)
--- NOTE | 2017-07-27 08:37 | PD.ONC.PN ---
Subjective Subjective Remarks Patient is resting in bed without any complaints discussed with MrEmelina and Mrs Michael the results of small bowel study. questions answered to best of my ability reinforced that it will be the decision of general surgery/ Dr. Rucker if surgery is recommended. Objective Data Date Time Temp Pulse Resp B/P (MAP) Pulse Ox O2 Delivery O2 Flow Rate FiO2 07/27/17 06:42 16 07/27/17 05:39 98.3 102 17 131/77 (95) 98 07/27/17 04:08 100 07/27/17 00:08 102 07/26/17 23:14 98.4 96 16 122/79 (93) 96 07/26/17 20:10 98.5 112 14 151/95 (113) 96 07/26/17 20:08 107 07/26/17 19:04 21 07/26/17 17:30 98.4 104 17 149/101 (117) 95 07/26/17 14:10 98.0 123 16 161/101 (121) 97 07/26/17 10:16 97 07/26/17 09:17 98.7 112 16 150/95 (113) 97 07/27/17 07/27/17 07/27/17 07:00 15:00 23:00 Intake Total 100 ml Output Total 650 ml Balance -550 ml Result Diagram: 07/25/17 0320 07/27/17 0549 Laboratory Results Laboratory Tests Test 07/27/17 05:49 Blood Urea Nitrogen 11 MG/DL Creatinine 0.48 MG/DL Random Glucose 105 MG/DL Calcium Level 8.9 MG/DL Sodium Level 140 MEQ/L Potassium Level 3.9 MEQ/L Chloride Level 105 MEQ/L Carbon Dioxide Level 27.7 MEQ/L Anion Gap 7 MEQ/L Estimat Glomerular Filtration Rate 129 ML/MIN Administered Medications Medications (Trade) Dose Ordered Sig/Olivier Route PRN Reason Start Time Stop Time Status Last Admin Dose Admin Sodium Chloride (NS Flush) 2 ml BID IV FLUSH 07/19/17 09:00 07/26/17 20:03 Ondansetron HCl (Zofran Inj) 4 mg Q6H PRN IVP NAUSEA OR VOMITING 07/19/17 04:00 07/26/17 22:04 Enoxaparin Sodium (Lovenox Inj) 40 mg Q24H SQ 07/19/17 09:00 07/26/17 09:16 Acetaminophen 100 ml @ 400 mls/hr Q6H PRN IV PAIN SCALE 4 TO 10 07/19/17 17:00 07/25/17 11:51 Potassium Chloride/Dextrose/ Sod Cl 1,000 ml @ 84 mls/hr [id number] IV 07/20/17 08:00 07/27/17 05:41 Pantoprazole Sodium (Protonix Inj) 40 mg Q12HR IV PUSH 07/20/17 20:00 07/26/17 20:02 Metoprolol Tartrate (Lopressor Inj) 5 mg Q6H IV PUSH 07/24/17 18:00 07/27/17 05:42 Ketorolac Tromethamine (Toradol Inj) 15 mg Q6HR IV PUSH 07/25/17 18:00 07/27/17 17:00 07/27/17 05:42 Objective Remarks GENERAL: Well-nourished, well-developed patient. SKIN: Warm and dry. HEAD: Normocephalic. EYES: No scleral icterus. No injection or drainage. NEUROLOGICAL: No obvious focal deficit. Awake, alert, and oriented x3. PSYCHIATRIC: Appropriate mood and affect; insight and judgment normal. Assessment/Plan Problem List: (1) Ovarian cancer, bilateral ICD Codes: C56.1 - Malignant neoplasm of right ovary; C56.2 - Malignant neoplasm of left ovary Status: Chronic Plan: s/p completion of line 1 taxol and Carbo aprox [address] concerning for recurrent disease will obtain PET/CT as outpt once discharged elevated CA 125 (2) SBO (small bowel obstruction) ICD Codes: K56.609 - Unspecified intestinal obstruction, unspecified as to partial versus complete obstruction Status: Acute Plan: NG tube to LIWS, discontinue clamping d/t obstruction flushing NG per shift will continue supportive care OOB to ambulate General surgery/ Dr. Rucker following small bowel study shown SBO possible surgery Attending Statement Discussed with Dr. Rivera and he is in agreement with plan. Discussed with RN, patient and her . Edita Rosas Jul 27, 2017 08:36
[2017-07-27] MEDS: SODIUM CHLORIDE 0.9% FLUSH 10 ML FLUSH IV FLUSH SCH ×2 (08:55→20:49)
[2017-07-27] MEDS: ENOXAPARIN SODIUM 40 MG/0.4 ML SYRINGE SQ SCH ×2 (08:55→18:55)
[2017-07-27] MEDS: PANTOPRAZOLE SODIUM 40 MG VIAL IV PUSH SCH ×2 (08:55→20:49)
--- NOTE | 2017-07-27 11:08 | HHI.PR ---
Subjective Remarks Patient has no discomfort in abdomen passing some gases per rectum . No bowel movement today No nausea vomiting no sob no chest pain Review of system for 10 point system otherwise unremarkable family at bedisde Objective Objective Results - Vital Signs Date Time Temp Pulse Resp B/P (MAP) Pulse Ox O2 Delivery O2 Flow Rate FiO2 07/27/17 08:36 98.3 86 18 131/85 (100) 95 07/27/17 08:04 96 07/27/17 06:42 16 07/27/17 05:39 98.3 102 17 131/77 (95) 98 07/27/17 04:08 100 07/27/17 00:08 102 07/26/17 23:14 98.4 96 16 122/79 (93) 96 07/26/17 20:10 98.5 112 14 151/95 (113) 96 07/26/17 20:08 107 07/26/17 19:04 21 07/26/17 17:30 98.4 104 17 149/101 (117) 95 07/26/17 14:10 98.0 123 16 161/101 (121) 97 I/O 07/26/17 07/26/17 07/26/17 07/27/17 07/27/17 07/27/17 06:59 14:59 22:59 06:59 14:59 22:59 Intake Total 1036 ml 100 ml Output Total 300 ml 1169 ml 650 ml Balance 736 ml -1169 ml -550 ml Intake Oral 100 ml IV Total 1036 ml Gastric Drainage Total 300 ml 650 ml Emesis 1169 ml # Voids 3 7 1 Result Diagram: 07/25/17 0320 07/27/17 0549 Other Results Laboratory Tests Test 07/27/17 05:49 Blood Urea Nitrogen 11 Creatinine 0.48 Random Glucose 105 Calcium Level 8.9 Sodium Level 140 Potassium Level 3.9 Chloride Level 105 Carbon Dioxide Level 27.7 Anion Gap 7 Estimat Glomerular Filtration Rate 129 Date/Time Source Procedure Growth Status 07/19/17 02:00 Blood Peripheral Aerobic Blood Culture - Final NO GROWTH IN 5 DAYS Complete 07/19/17 02:00 Blood Peripheral Anaerobic Blood Culture - Final NO GROWTH IN 5 DAYS Complete Physical Exam Physical Exam VITAL SIGNS: Reviewed HEENT: Atraumatic, normocephalic. Eyes, negative conjunctival congestion or icterus. NG tube in the right nostril NECK: Supple. No increase in JVD. Negative thyromegaly. Central trachea. CHEST: Clear to auscultation. CARDIOVASCULAR: S1 and S2 audible. Unable to hear any S3 gallop. ABDOMEN: Soft. Nontender. No rebound or guarding. No rigidity. some distention in the middle abdomen. EXTREMITIES: No cyanosis or pedal edema appreciated. CENTRAL NERVOUS SYSTEM: Alert and oriented. Normal facial features. Normal speech. Normal power and tone. SKIN: Warm and dry. PSYCHIATRIC: Appropriate mood and affect. A/P Assessment and Plan 1. Nausea, vomiting, abdominal pain secondary to small-bowel obstruction. 2. Hypokalemia. 3. Tachycardia. 4. Ovarian cancer bilateral and status post surgery. PLAN Labs reviewed hypokalemia improved xray kub report reviewed. Report of xray small Bowel showed small bowel obstruction Appreciate surgical help will go for surgery today Continue NG suction intermittent basis tachycardia better on IV Lopressor Monitor blood pressure stable Monitor electrolytes Appreciate oncology input. Discussed with oncologist Continue IV hydration, monitor heart rate. Discussed with the patient and spouse at bedside. Discussed with Manjeet Buenrostro MD Jul 27, 2017 11:07
[2017-07-27] MEDS ORDERED: DEXAMETHASONE SOD PHOS 4 MG/ML VIAL IV ONE (11:19)
[2017-07-27] MEDS ORDERED: LACTATED RINGER'S 1000 ML INJ 2,000 ML IV ONE (11:19)
[2017-07-27] MEDS ORDERED: NEOSTIGMINE 3 MG/3 ML SYR IV ONE (11:19)
[2017-07-27] MEDS ORDERED: MORPHINE SULFATE 4 MG/ML INJ IV ONE (11:19)
[2017-07-27] MEDS ORDERED: GLYCOPYRROLATE 1 MG/5 ML SYRINGE IV PUSH ONE (11:19)
[2017-07-27] MEDS ORDERED: ONDANSETRON HCL 4 MG/2 ML VIAL IV PUSH ONE (11:19)
[2017-07-27] MEDS ORDERED: SUCCINYLCHOLINE CHLORIDE 100 MG/5 ML SYRINGE IV PUSH ONE (11:19)
[2017-07-27] MEDS ORDERED: PROPOFOL 200 MG/20 ML AMP IV ONE (11:19)
[2017-07-27] MEDS ORDERED: PHENYLEPH/NS 1000 MCG/10 ML SYR IV ONE (11:19)
[2017-07-27] MEDS ORDERED: BUPIVACAINE/EPINEPHRINE 0.25% 50 ML VIAL ONE (13:44)
[2017-07-27] MEDS ORDERED: metroNIDAZOLE 500 MG INJ 100 ML IV ONE (14:47)
[2017-07-27] MEDS ORDERED: ceFAZolin INJ 1,000 MG VIAL ONE (14:48)
[2017-07-27] MEDS ORDERED: *MEPERIDINE 25 MG INJ VIAL PERIprocedural Use ONLY ONE (17:32)
[2017-07-27] MEDS ORDERED: MORPHINE SULFATE 30 MG/30 ML PCA IV SCH (17:45)
[2017-07-27] MEDS ORDERED: NALOXONE HCL 0.4 MG/ML AMP IV PUSH PRN (17:45)
[2017-07-27] MEDS ORDERED: DO NOT ADM ANY ANTICOAGULANT DRUGS PRN (19:00)
[2017-07-27] MEDS: PCA - TOTAL MG MORPHINE DELIVERED PER SHIFT SCH (20:49)
--- NOTE | 2017-07-27 22:39 | MP ---
cc: XIAO NAIDU M.D. DATE OF SURGERY: 07/27/2017 PREOPERATIVE DIAGNOSIS: 1. Small bowel obstruction, refractory to medical management. 2. History of metastatic ovarian cancer. POSTOPERATIVE DIAGNOSIS 1. Small bowel obstruction, refractory to medical management. 2. History of metastatic ovarian cancer. 3. Recurrent metastatic ovarian cancer (unresectable). PROCEDURE PERFORMED 1. Diagnostic laparoscopy 2. Exploratory laparotomy. 3. Loop ileostomy. 4. Biopsy of recurrent ovarian tumor. SURGEON Xiao Naidu MD. [employer] Camron Moreira MD. INTRAOPERATIVE CONSULTATION Dr. Patricia Rivera COMPLICATIONS None. INDICATIONS FOR PROCEDURE: Mrs. Michael is a pleasant 66 year-old patient of Dr. Patricia Rivera who has a history of metastatic ovarian cancer. She underwent neoadjuvant chemotherapy and then a laparoscopic-assisted salpingo-oophorectomy and omental debulking back in April of this year. The patient just recently completed a second round of chemotherapy. She developed progressive abdominal distension, nausea, vomiting and inability to tolerate p.o. She was seen by Dr. Rivera who admitted her to the hospital for bowel rest and observation. The patient had a short period of bowel rest and failed to progress. She underwent a small bowel follow-through which showed a small bowel obstruction. Dr. Rivrea requested general surgery evaluation. I came and saw the patient immediately. The patient is noted have obvious mechanical bowel obstruction which warranted immediate trip to the operating room. Risks and benefits of the procedure was discussed with her and her . They were agreeable. INTRAOPERATIVE FINDINGS The patient had widely metastatic recurrent ovarian cancer. She had a large bulky tumor mass in the pelvis which was obstructing the distal small bowel. It was completely socked in and immobile. She had peritoneal studding throughout the abdominal cavity. She had implants on the small bowel as well as on the mesentery. She had implants all over the falciform ligament. She had tumor all over her ascendng, transverse, and descending colon. DETAILS The patient was identified, brought to the operating room, placed supine on the operating room table. After adequate general endotracheal anesthesia was achieved, the abdomen was prepped and draped in standard surgical fashion. Infraumbilical space was anesthetize with 0.25% Marcaine. Infraumbilical incision was made. Dissection carried down to the subcutaneous tissue to midline fascia. Midline fascia was incised sharply. Finger was then placed in the peritoneal cavity without difficulty. Blunt balloon trocar was inserted and the abdomen was insufflated to 15 mmHg using CO2 gas. Next the 30 degree laparoscope was inserted. Immediately we noted diffuse recurrent peritoneal implants consistent with recurrent metastatic ovarian cancer. Multiple photographs were taken of the disease. The small bowel was completely dilated. The small bowel was seen to be going down to the pelvis where it appeared to be socked in. Dr. Moreira and I agreed this would not be amenable to laparoscopic treatment. Therefore, a lower midline incision was made from the umbilicus down to the pubis. The subcutaneous tissue was dissected with the electrocautery Bovie. Abdominal cavity was then entered. A Bookwalter retractor was then placed. Attention was first directed to the small bowel. Small bowel was brought out of the abdominal cavity and analyzed. Small bowel had multiple implants along the bowel and mesentery. We, therefore, ran the small bowel back in a retrograde fashion milking all the bilious back into the NG tube. We achieved approximately 1800 cc of fluid out the small bowel. Once the small bowel was completely decompressed, we followed it distally where it went down to the pelvis, where there was a large amount of bulky tumor in the pelvis obstructing the small bowel. Obstruction occurred near the terminal ileum. We then analyzed the ascending, transverse and descending colon. There were multiple peritoneal implants and actually in the transverse colon, there was a large amount of bulky tumor causing a near obstruction there as well. The descending colon and sigmoid colon were also analyzed and there was tumor on the descending colon and the sigmoid colon went down to the pelvis where the large tumor mass had matted the small bowel. We asked Dr. Rivera to come into the operating room for intraoperative consultation. He scrubbed in for surgery and palpated the tumor and agreed that this was not resectable disease. He asked if we could do a palliative bypass and I informed him that I did not think a bypass would be a good idea as I feared the transverse colon had impending obstruction. I recommended that we do a loop ileostomy for palliation. Dr. Rivera agreed with this. A section of the ileum about 15-20 cm proximal to the obstruction was selected. A ostomy site was then selected in the left middle quadrant. Elliptical skin incision was made. Subcutaneous fat was dissected free. The anterior abdominal wall fascia was incised in a cruciate manner. The muscles spread along the course of its fibers. Peritoneum was then incised. Two fingers were allowed to pass freely through the site. The small bowel was grasped with a Bigelow clamp and brought out in a loop fashion in the left lower quadrant. The bowel was then sewn up to the peritoneum using 3-0 GI silks both proximally and distally in order to prevent the bowel from pivoting on access. Once we did this, attention was directed to biopsy of the tumor. Dr. Rivera asked that we excise some tumor for additional stains and testing. Dr. Rivera was scrubbed into surgery and he grabbed the peritoneum on the left pelvic sidewall and excised the tumor u sing electrocautery Bovie. This was sent to pathology for analysis. Attention was now directed to closure. The small bowel was returned to its anatomic position. The lower midline incision was then closed with #1 looped running PDS in a continuous running fashion. The subcutaneous tissue was copiously irrigated and injected with additional local anesthetic, and the skin was closed with skin stapling device. Attention was now directed to maturation of the ostomy. The ostomy was inserted in the left lower quadrant. A transverse incision was made along the antimesenteric of the small bowel. The small bowel was then inverted and sewn down to the abdominal wall using 4-0 Vicryl sutures. Proximal and distal segments were digitally examined and found to be widely patent without any kinks or compression. Ostomy appliance was then applied. The patient was then awake and brought to recovery in stable condition. MD ARI Barahona/PATRIA /5:46 PM /10:18 PM
[2017-07-28] VITALS (13 sets, daily range): BP systolic 109–144; BP diastolic 64–84; PULSE 105–121; RESP 16–20; TEMP 98.4–100.2; O2SAT 92–99
[2017-07-28] MEDS: METOPROLOL TARTRATE 5 MG/5 ML VIAL IV PUSH SCH ×5 (00:24→23:23)
[2017-07-28] MEDS: D5-NS + KCL 20 MEQ INJ 1,000 ML IV SCH ×2 (05:23→17:15)
[2017-07-28] MEDS: PCA - TOTAL MG MORPHINE DELIVERED PER SHIFT SCH ×3 (05:23→21:27)
[2017-07-28 06:59] LABS: HEMATOCRIT 36.7 % (35.0-46.0); MEAN CORPUSCULAR HEMOGLOBIN 34.2 PG (27.0-34.0); MEAN CORPUSCULAR HGB CONC 33.5 % (32.0-36.0); PLATELET COUNT 468 TH/MM3 (150-450); RED CELL DISTRIBUTION WIDTH 12.6 % (11.6-17.2); REVIEW FLAG FINAL; WHITE BLOOD COUNT 20.1 TH/MM3 (4.0-11.0)
[2017-07-28 07:21] LABS: BICARBONATE 26.9 MEQ/L (21.0-32.0); POTASSIUM 3.9 MEQ/L (3.5-5.1)
[2017-07-28] MEDS: SODIUM CHLORIDE 0.9% FLUSH 10 ML FLUSH IV FLUSH SCH ×2 (08:34→20:44)
[2017-07-28] MEDS: PANTOPRAZOLE SODIUM 40 MG VIAL IV PUSH SCH ×2 (08:34→20:44)
--- NOTE | 2017-07-28 09:30 | HHI.PR ---
Subjective Remarks Patient has abdominal pain on morphine pump helping her Some liquid in the ileostomy bag No nausea vomiting no sob no chest pain Review of system for 10 point system otherwise unremarkable at bedisde Objective Objective Results - Vital Signs Date Time Temp Pulse Resp B/P (MAP) Pulse Ox O2 Delivery O2 Flow Rate FiO2 07/28/17 08:46 Room Air 07/28/17 07:44 98.5 119 18 144/84 (104) 96 07/28/17 05:23 20 07/28/17 05:00 98.9 116 20 133/82 (99) 97 07/28/17 05:00 Room Air 07/28/17 04:00 116 07/28/17 00:00 105 07/28/17 00:00 98.4 115 20 109/64 (79) 95 07/28/17 00:00 Room Air 07/27/17 21:09 95 07/27/17 20:49 20 07/27/17 20:00 95 07/27/17 20:00 Room Air 07/27/17 20:00 98.2 94 18 124/75 (91) 96 07/27/17 18:46 12 07/27/17 18:30 98.2 107 18 128/68 (88) 95 07/27/17 18:15 97.9 95 12 143/65 (91) 100 Nasal Cannula 3 07/27/17 18:00 98 12 140/62 (88) 100 Nasal Cannula 3 07/27/17 17:45 92 12 141/65 (90) 100 Nasal Cannula 3 07/27/17 17:30 93 12 145/68 (93) 100 Nasal Cannula 3 07/27/17 17:15 93 12 121/59 (79) 98 Nasal Cannula 3 07/27/17 17:06 97.9 92 12 140/65 (90) 100 Nasal Cannula 3 07/27/17 11:58 91 146/84 (104) 07/27/17 11:51 98.1 110 18 134/80 (98) 95 07/27/17 11:46 95 I/O 07/27/17 07/27/17 07/27/17 07/28/17 07/28/17 07/28/17 07:00 15:00 23:00 07:00 15:00 23:00 Intake Total 100 ml 3300 ml 950 ml Output Total 650 ml 1125 ml 600 ml 500 ml Balance -550 ml -1125 ml 2700 ml 450 ml Intake Oral 100 ml IV Total 950 ml Other 3300 ml Output Urine Total 125 ml 250 ml 500 ml Gastric Drainage Total 650 ml 1000 ml 300 ml Estimated Blood Loss 50 ml # Voids 1 Result Diagram: 07/28/17 0450 07/28/17 0450 Other Results Laboratory Tests Test 07/28/17 04:50 White Blood Count 20.1 Red Blood Count 3.60 Hemoglobin 12.3 Hematocrit 36.7 Mean Corpuscular Volume 102.0 Mean Corpuscular Hemoglobin 34.2 Mean Corpuscular Hemoglobin Concent 33.5 Red Cell Distribution Width 12.6 Platelet Count 468 Mean Platelet Volume 6.8 Blood Urea Nitrogen 8 Creatinine 0.38 Random Glucose 120 Calcium Level 8.4 Sodium Level 138 Potassium Level 3.9 Chloride Level 103 Carbon Dioxide Level 26.9 Anion Gap 8 Estimat Glomerular Filtration Rate 168 Date/Time Source Procedure Growth Status 07/19/17 02:00 Blood Peripheral Aerobic Blood Culture - Final NO GROWTH IN 5 DAYS Complete 07/19/17 02:00 Blood Peripheral Anaerobic Blood Culture - Final NO GROWTH IN 5 DAYS Complete Physical Exam Physical Exam VITAL SIGNS: Reviewed HEENT: Atraumatic, normocephalic. Eyes, negative conjunctival congestion or icterus. NG tube in the right nostril NECK: Supple. No increase in JVD. Negative thyromegaly. Central trachea. CHEST: Clear to auscultation. CARDIOVASCULAR: S1 and S2 audible. Unable to hear any S3 gallop. ABDOMEN: Soft. Tender at surgical site. With ileostomy bag on the left side. Has some brownish liquid. Also dressing and lower midline abdomen EXTREMITIES: No cyanosis or pedal edema appreciated. CENTRAL NERVOUS SYSTEM: Alert and oriented. Normal facial features. Normal speech. Normal power and tone. SKIN: Warm and dry. PSYCHIATRIC: Appropriate mood and affect. A/P Assessment and Plan 1. Nausea, vomiting, abdominal pain secondary to small-bowel obstruction. 2. Hypokalemia. 3. Tachycardia. 4. Ovarian cancer bilateral and status post surgery. PLAN Labs reviewed leukocytosis likely reactive hypokalemia improved Status post surgery postop day #1 1. Diagnostic laparoscopy 2. Exploratory laparotomy. 3. Loop ileostomy. 4. Biopsy of recurrent ovarian tumor. xray kub report reviewed. Report of xray small Bowel showed small bowel obstruction Appreciate surgical help Continue NG suction intermittent basis tachycardia, on IV Lopressor Monitor blood pressure stable Monitor electrolytes Appreciate oncology input. Continue IV hydration, monitor heart rate. Discussed with the patient and spouse at bedside. Discussed with RN Condition guarded Manjeet Sosa MD Jul 28, 2017 09:30
--- NOTE | 2017-07-28 11:37 | PD.WCN.NOT ---
Wound Consult Description: Consult for New Ostomy Teaching of LLQ per Dr Rucker Communicated with: LUÍS Shah Patient Family members at bedside Recommendation: Write down any questions you may come up with for our next meeting scheduled at 1100 on 07/29/17 so that could be present. Additional Information: Patient seen on [facility] for ostomy assessment and teaching. Ostomy Type: Other (Loop Ileostomy) Surgeon: Avelino Rucker MD Date of Surgery: Jul 27, 2017 Complete: Education materials Educated patient on: How often the appliance should be changed Empty pouch when 1/3-1/2 full Make sure the pouch is completely closed to avoid soiling of linens Where to obtain supplies and cost of supplies depending on insurance co Wafer and pouch 2 piece and 1 piece appliance. Additional information Patient seen on [facility] for ostomy assessment. Patient asked if we could make an appointment for tomorrow when she would be in a better mind set and points to her morphine pump. We agreed that tomorrow at 1100 would be fine and her could be present. Then the patient began asking questions regarding the appliance and where to obtain supplies. Patient daughter was at bedside and began asking questions as well. All questions were answered and educational materials were left at bedside for patient to read later. Daughter picked up the materials and began reading prior to financial underwriter leaving room. Stoma was noted on the left abdomen with a barrier intact and a pouch that was not intact. The flange was gently pressed to close the appliance and the open end of pouch was checked as well and found to be partially open. Patient was at this time educated on the need to check and make sure the pouch is closed after being emptied from the bottom or vented at the top. LUÍS Shah was also notified of the pouch not being closed. Patient stated how happy she was that we had found that out prior to any accidents and for financial underwriter to please inform her nurse of our findings. Stoma is red, oval, moist, flush, functioning with mucus and liquid effluent noted in pouch. Lumens were not visualized at this time. A low pressure adaptor is not in place and patient states that her abdomen is extremely tender. Appliance will be changed tomorrow prior to the weekend so patient and can participate and have hands on experience with barrier/ wafer and pouch system. Jackeline Sandra [facility] Jul 28, 2017 11:37
--- NOTE | 2017-07-28 13:07 | HHI.PR ---
Subjective Subjective Notes sore, visiting with family Objective Vitals/I&O Vital Signs Date Time Temp Pulse Resp B/P (MAP) Pulse Ox O2 Delivery O2 Flow Rate FiO2 07/28/17 12:13 107 07/28/17 12:04 99.0 18 123/73 (90) 95 07/28/17 08:46 Room Air 07/27/17 18:15 3 07/26/17 19:04 21 Labs Laboratory Tests Test 07/28/17 04:50 White Blood Count 20.1 Red Blood Count 3.60 Hemoglobin 12.3 Hematocrit 36.7 Mean Corpuscular Volume 102.0 Mean Corpuscular Hemoglobin 34.2 Mean Corpuscular Hemoglobin Concent 33.5 Red Cell Distribution Width 12.6 Platelet Count 468 Mean Platelet Volume 6.8 Blood Urea Nitrogen 8 Creatinine 0.38 Random Glucose 120 Calcium Level 8.4 Sodium Level 138 Potassium Level 3.9 Chloride Level 103 Carbon Dioxide Level 26.9 Anion Gap 8 Estimat Glomerular Filtration Rate 168 Date/Time Source Procedure Growth Status 07/19/17 02:00 Blood Peripheral Aerobic Blood Culture - Final NO GROWTH IN 5 DAYS Complete 07/19/17 02:00 Blood Peripheral Anaerobic Blood Culture - Final NO GROWTH IN 5 DAYS Complete Radiology Last 48 hours Impressions Abdomen X-Ray 07/25/17 0847 Signed Impressions: Service Date/Time: Tuesday, July 25, 2017 11:15 - CONCLUSION: Multiple dilated loops of small bowel which can be seen with partial obstruction. Benigno Valle MD Abdomen: Non-distended, Post-op tenderness Narrative Exam ostomy LLQ Wound Wound : Wound Location: Abdomen Appearance: Clean & Dry Dressing: Dry A/P Assessment and Plan POD 1 exp lap, diverting loop ileostomy stable await ostomy function and decreased NG output dr andrea to discuss alternative chemotherapy with patient. Avelino Rucker MD Jul 28, 2017 13:07
[2017-07-29] VITALS (11 sets, daily range): BP systolic 105–127; BP diastolic 67–76; PULSE 94–116; RESP 16–20; TEMP 98.4–100.9; O2SAT 95–100
[2017-07-29] MEDS: METOPROLOL TARTRATE 5 MG/5 ML VIAL IV PUSH SCH ×4 (05:08→23:52)
[2017-07-29] MEDS: PCA - TOTAL MG MORPHINE DELIVERED PER SHIFT SCH ×3 (05:09→21:43)
[2017-07-29] MEDS: D5-NS + KCL 20 MEQ INJ 1,000 ML IV SCH ×2 (05:20→18:25)
[2017-07-29 05:47] LABS: HEMATOCRIT 34.4 % (35.0-46.0); MEAN CELL VOLUME 100.8 FL (80.0-100.0); MEAN CORPUSCULAR HEMOGLOBIN 33.8 PG (27.0-34.0); MEAN CORPUSCULAR HGB CONC 33.6 % (32.0-36.0); PLATELET COUNT 408 TH/MM3 (150-450); RED BLOOD COUNT 3.41 MIL/MM3 (4.00-5.30); RED CELL DISTRIBUTION WIDTH 12.8 % (11.6-17.2); REVIEW FLAG FINAL; WHITE BLOOD COUNT 15.7 TH/MM3 (4.0-11.0)
--- NOTE | 2017-07-29 07:39 | HHI.PR ---
Subjective Subjective Notes feels better, still sore, ostomy working. Objective Vitals/I&O Vital Signs Date Time Temp Pulse Resp B/P (MAP) Pulse Ox O2 Delivery O2 Flow Rate FiO2 07/29/17 05:09 16 07/29/17 05:00 98.8 110 122/70 (87) 100 07/28/17 20:20 Room Air 07/27/17 18:15 3 07/26/17 19:04 21 Labs Laboratory Tests Test 07/29/17 05:05 White Blood Count 15.7 Red Blood Count 3.41 Hemoglobin 11.5 Hematocrit 34.4 Mean Corpuscular Volume 100.8 Mean Corpuscular Hemoglobin 33.8 Mean Corpuscular Hemoglobin Concent 33.6 Red Cell Distribution Width 12.8 Platelet Count 408 Mean Platelet Volume 6.2 Date/Time Source Procedure Growth Status 07/19/17 02:00 Blood Peripheral Aerobic Blood Culture - Final NO GROWTH IN 5 DAYS Complete 07/19/17 02:00 Blood Peripheral Anaerobic Blood Culture - Final NO GROWTH IN 5 DAYS Complete Radiology Last 48 hours Impressions Abdomen X-Ray 07/25/17 0847 Signed Impressions: Service Date/Time: Tuesday, July 25, 2017 11:15 - CONCLUSION: Multiple dilated loops of small bowel which can be seen with partial obstruction. Benigno Valle MD Abdomen: Non-distended, Post-op tenderness, BS normal Narrative Exam ostomy LLQ A/P Assessment and Plan POD 2 exp lap, diverting loop ileostomy stable remove NG and Dougherty sips clears dr andrea to discuss alternative chemotherapy with patient. Avelino Rucker MD Jul 29, 2017 07:39
--- NOTE | 2017-07-29 07:58 | HHI.PR ---
Subjective . No new c/o. adequate pain control. no n/v. Objective . afeb VSS HR 108-114 h/h > 10 Lungs CTA, CV rrr, abd soft, clean, stoma patent. Assessment/Plan . POD#2 Stable Findings again reviewed, Q&A with expressed understanding CPM, stoma care education, Increase OOB activity & spirometry Patricia Rivera MD Jul 29, 2017 07:58
--- NOTE | 2017-07-29 08:11 | MB ---
cc: RENETTA DUBOSE, NEWTON LEON MD,ROSALINE CASEY M.D., MARK W. M.D. BIANCHI, JOSEPH D. M.D. DATE OF CONSULTATION 07/27/[address] Avelino Rucker AND Dr. Camron Moreira REASON FOR CONSULTATION 1. History of ovarian cancer. 2. 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 3. Multifocal intestinal obstruction with clinical small bowel obstruction. HISTORY I was summoned to the operating room by Dr. Avelino Rucker as he and Dr. Camron Moreira were overseeing the surgical evaluation and management for Alyssia Michael who has had a known history of ovarian cancer and presented with signs and symptoms of a small bowel obstruction that did not respond to conservative medical management. She underwent laparoscopy converted to laparotomy. I scrubbed in the case because of findings of extensive intraperitoneal carcinomatosis including multifocal intestinal obstruction or areas of impending obstruction in both the small and large bowel. The nature, extent, and distribution of the tumor was such that it was not amenable to surgical resection. The findings are thoroughly described in the op note by Dr. Avelino Rucker. Dr. Avelino Rucker, Dr. Camron Moreira and myself agreed that the tumor, as presented, was not resectable, nor was an internal bypass of small bowel to large bowel going to resolve the problem as there were areas of near obstruction and were pending obstruction in the transverse colon as well as in the pelvis with multifocal implants throughout multiple loops of large and small bowel. Accordingly, a decision was made for diverting loop ileostomy. I did remove some tumor from the pelvic sidewalls and this was collected and sent as a fresh (non-fixed) specimen. I spoke to Dr. Radha Olivera in pathology and made her aware of the request that this tissue be sent for precision therapeutics for evaluation regarding chemotherapy sensitivity and resistance The case was directed in and completed by the general surgeons and I scrubbed out after the abdominal wall was closed. MD ZOE Wright/SHANNA /7:41 AM 7:55 AM
[2017-07-29] MEDS: PANTOPRAZOLE SODIUM 40 MG VIAL IV PUSH SCH ×2 (08:20→21:43)
[2017-07-29] MEDS: ENOXAPARIN SODIUM 40 MG/0.4 ML SYRINGE SQ SCH (08:21)
--- NOTE | 2017-07-29 08:27 | MB ---
cc: RENETTA DUBOSE, DR. BAZAN,HERMINIO KUMAR MD, M.D., JAWED A. MD WHITE,LYLE ZAVALA M.D., M.D. DATE OF CONSULTATION 07/28/2017 REASON FOR CONSULTATION I met with Alyssia Michael and her accompanied by our nurse practitioner (Edita Rosas). We had a very extensive discussion of approximately one hour duration. I explained in detail the findings at the time of surgery. The extensive intraperitoneal carcinomatosis. The multifocal and gastrointestinal obstruction or impending obstructions that necessitated the surgical procedure that was performed. I answered questions to the best my capacity regarding surgical recovery, issues related to the ileostomy, nutrition, recommendations to try to expedite recovery and the need for a significant recovery and re-establishment of performance status prior to considering any additional treatment. 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 She had undergone four cycles of neoadjuvant Taxol, carboplatin chemotherapy followed by interval cytoreductive surgery followed by four additional cycles of Taxol and carboplatin after which by all parameters she was in remission. However, recent hospitalization for small bowel obstruction, she did not respond to conservative measures with IV hydration, bowel rest, nasogastric decompression. CT scan showed some plaque-like thickening in the peritoneal cavity suspicious for recurrent disease and a small bowel series showed an obstruction with no contrast passing through to the colon These again are the reasons and reviewed in summary why general surgery was consulted and she underwent the surgery with findings as discussed and the steps taken as described. With respect to treatment, there is no absolute best established second line treatment for [place] resistant ovarian cancer. We talked about the potential value of clinical trials and considered several centers in the region such as [facility] or [facility]. We also discuss National centers such as [facility] in [place] or [facility] in [place], as well as others. It is explained that clinical trials are encouraged and may offer the hope of something more effective than currently available, but they are experimental and may not necessarily provide improved outcome and I reviewed the difference between phase one phase two and phase three such that if phase three clinical trial is available, that would be desired. They understand that a clinical trial may require travel, may require treatment and/or follow-up to be done at the facility where the clinical trial is being overseen. With respect to existing treatments, we discussed a number of possible treatments including gemcitabine, liposomal doxorubicin, topotecan. We reviewed some of the recently approved biologic agents (PARP inhibitor) and how that could be potentially considered for third line treatment. We reviewed single-agent combination agents, biologic such as Avastin and a host of other things are discussed and reviewed. Taking into account the side effect profile, likelihood of response, tolerability, I think it would be reason to consider gemcitabine as a single agent with the goals of good response to treatment with minimal side effects with the possibility of adding another agent or altering that regimen based on response, although this will be considered further. Furthermore, they are made aware that tissue was obtained and sent for precision therapeutics which may help guide us in our treatment recommendations and decision making and we reviewed some of the pros and cons of the chemotherapeutic assays. More questions were asked and answered to the best my capacity. Many notes were taken and the meeting was concluded when all parties agreed they had no additional questions at this time and the understand that there will be a series of discussion and that we will help in any way possible. I will try to find out some information as to whether or not our regional centers such as [facility] or [facility] may have clinical trials for which she might be eligible given her recurrent [place] resistant ovarian cancer. MD ZOE Wright/SHANNA /7:46 AM /8:04 AM
[2017-07-29] MEDS: SODIUM CHLORIDE 0.9% FLUSH 10 ML FLUSH IV FLUSH SCH ×2 (08:31→21:00)
--- NOTE | 2017-07-29 15:52 | HHI.PR ---
Subjective Remarks Patient has no abdominal pain at present Some liquid in the ileostomy bag. As per patient good amount this morning No nausea vomiting no sob no chest pain Review of system for 10 point system otherwise unremarkable Family at bedisde Objective Objective Results - Vital Signs Date Time Temp Pulse Resp B/P (MAP) Pulse Ox O2 Delivery O2 Flow Rate FiO2 07/29/17 12:00 98.6 116 18 127/68 (87) 97 07/29/17 10:01 96 07/29/17 09:02 98.7 107 20 105/74 (84) 95 07/29/17 08:31 Room Air 07/29/17 08:00 111 07/29/17 05:09 16 07/29/17 05:00 98.8 110 16 122/70 (87) 100 07/28/17 23:30 99.7 116 16 122/73 (89) 97 07/28/17 21:27 16 07/28/17 21:13 92 07/28/17 20:30 99.7 114 16 121/74 (90) 99 07/28/17 20:20 108 07/28/17 20:20 Room Air 07/28/17 18:22 100.1 106 07/28/17 16:31 100.2 118 18 126/75 (92) 96 I/O 07/28/17 07/28/17 07/28/17 07/29/17 07/29/17 07/29/17 07:00 15:00 23:00 07:00 15:00 23:00 Intake Total 950 ml 573 ml 1000 ml Output Total 500 ml 750 ml 975 ml 25 ml 600 ml Balance 450 ml -177 ml 25 ml -25 ml -600 ml IV Total 950 ml 573 ml 1000 ml Output Urine Total 500 ml 400 ml 600 ml 250 ml Stool Total 150 ml 375 ml 350 ml Gastric Drainage Total 200 ml 25 ml Result Diagram: 07/29/17 0503 07/28/17 0451 Other Results Laboratory Tests Test 07/29/17 05:05 White Blood Count 15.7 Red Blood Count 3.41 Hemoglobin 11.5 Hematocrit 34.4 Mean Corpuscular Volume 100.8 Mean Corpuscular Hemoglobin 33.8 Mean Corpuscular Hemoglobin Concent 33.6 Red Cell Distribution Width 12.8 Platelet Count 408 Mean Platelet Volume 6.2 Date/Time Source Procedure Growth Status 07/19/17 02:00 Blood Peripheral Aerobic Blood Culture - Final NO GROWTH IN 5 DAYS Complete 07/19/17 02:00 Blood Peripheral Anaerobic Blood Culture - Final NO GROWTH IN 5 DAYS Complete Physical Exam Physical Exam VITAL SIGNS: Reviewed HEENT: Atraumatic, normocephalic. Eyes, negative conjunctival congestion or icterus. NECK: Supple. No increase in JVD. Negative thyromegaly. Central trachea. CHEST: Clear to auscultation. CARDIOVASCULAR: S1 and S2 audible. Unable to hear any S3 gallop. ABDOMEN: Soft. Tender at surgical site. With ileostomy bag on the left side. Has some brownish liquid. Also dressing and lower midline abdomen EXTREMITIES: No cyanosis or pedal edema appreciated. CENTRAL NERVOUS SYSTEM: Alert and oriented. Normal facial features. Normal speech. Normal power and tone. SKIN: Warm and dry. PSYCHIATRIC: Appropriate mood and affect. A/P Assessment and Plan 1. Nausea, vomiting, abdominal pain secondary to small-bowel obstruction. 2. Hypokalemia. 3. Tachycardia. 4. Ovarian cancer bilateral and status post surgery. PLAN Labs reviewed leukocytosis likely reactive hypokalemia improved Status post surgery 1. Diagnostic laparoscopy 2. Exploratory laparotomy. 3. Loop ileostomy. 4. Biopsy of recurrent ovarian tumor. NG tube is out On clears xray kub report reviewed. Report of xray small Bowel showed small bowel obstruction Appreciate surgical help tachycardia, on IV Lopressor stable Monitor blood pressure stable Monitor electrolytes Appreciate oncology input. Discussed with the patient. Discussed with RN Condition guarded Manjeet Sosa MD Jul 29, 2017 15:52
--- NOTE | 2017-07-29 18:51 | PD.WCN.NOT ---
Wound Consult Description: Consult for New Ostomy Teaching of LLQ per Dr Rucker Communicated with: Patient Patient Nancy,RN Recommendation: Write down any questions you may have for our next teaching session on Tuesday in the am. Practice emptying the pouch when 1/3-1/2 full Assess wafer/barrier for leaks often Drink plenty of fluids. Additional Information: Patient seen on [facility] for ostomy teaching and ostomy appliance change. Ostomy Type: Other (Loop Ileostomy) Surgeon: Avelino Rucker MD Date of Surgery: Jul 27, 2017 Complete: Education materials, Rx (Left on chart), Other (Box of supplies ordered from [facility] in size 1 3/4" as well as stoma paste, stoma powder, skin prep spray, and dev seal) Educated patient on: Emptying pouch of effluent Removal of barrier with adhesive removal wipes Inspecting the back of the barrier for breakdown Attaching the pouch to the barrier (wafer) Peristomal skin care with water only (unless peristomal skin breakdown occurs) How to encrust with peristomal skin contact dermatitis, hyperplasia, candidiasis etc Foods that cause blockages, odors, gas etc Ostomy support once patient is discharged How to obtain supplies after discharge (through approved supplier from insurance co) Additional information *Late entry* Patient was assisted in changing the barrier and pouch earlier today. Patient seen again for follow up, script placed on chart, and to answer additional questions Jackeline Sandra [facility] CENTER[facility]difata[facility] Jul 29, 2017 18:51
[2017-07-30] VITALS (8 sets, daily range): BP systolic 120–134; BP diastolic 76–85; PULSE 87–117; RESP 16–18; TEMP 98–98.7; O2SAT 95–98
[2017-07-30] MEDS: D5-NS + KCL 20 MEQ INJ 1,000 ML IV SCH (04:11)
[2017-07-30 05:37] LABS: HEMATOCRIT 32.1 % (35.0-46.0); MEAN CELL VOLUME 100.7 FL (80.0-100.0); MEAN CORPUSCULAR HEMOGLOBIN 34.8 PG (27.0-34.0); MEAN CORPUSCULAR HGB CONC 34.6 % (32.0-36.0); PLATELET COUNT 374 TH/MM3 (150-450); RED BLOOD COUNT 3.19 MIL/MM3 (4.00-5.30); RED CELL DISTRIBUTION WIDTH 12.3 % (11.6-17.2); REVIEW FLAG FINAL
[2017-07-30] MEDS: METOPROLOL TARTRATE 5 MG/5 ML VIAL IV PUSH SCH ×4 (05:45→23:48)
[2017-07-30] MEDS: PCA - TOTAL MG MORPHINE DELIVERED PER SHIFT SCH (05:45)
[2017-07-30] MEDS: SODIUM CHLORIDE 0.9% FLUSH 10 ML FLUSH IV FLUSH SCH ×2 (09:00→20:27)
[2017-07-30] MEDS: PANTOPRAZOLE SODIUM 40 MG VIAL IV PUSH SCH ×2 (09:09→20:28)
[2017-07-30] MEDS: ENOXAPARIN SODIUM 40 MG/0.4 ML SYRINGE SQ SCH (09:09)
--- NOTE | 2017-07-30 10:54 | HHI.PR ---
Subjective Remarks 66yr old female seen and examined today. sitting in chair, NAD. Ambulated outside room today. No CP/SOB/NVD. in room. Objective Objective Results - Vital Signs Date Time Temp Pulse Resp B/P (MAP) Pulse Ox O2 Delivery O2 Flow Rate FiO2 07/30/17 10:42 Room Air 07/30/17 10:40 Room Air 07/30/17 08:00 98.5 97 16 120/76 (91) 95 07/30/17 07:00 109 07/30/17 05:45 14 07/30/17 04:00 98.7 87 16 125/80 (95) 98 07/29/17 23:44 98.5 94 16 113/67 (82) 100 07/29/17 21:43 16 07/29/17 21:36 96 07/29/17 20:45 Room Air 07/29/17 20:45 95 07/29/17 20:00 98.4 108 16 120/75 (90) 100 07/29/17 18:12 99.0 07/29/17 16:38 100.9 114 20 112/76 (88) 95 07/29/17 12:00 98.6 116 18 127/68 (87) 97 I/O 07/29/17 07/29/17 07/29/17 07/30/17 07/30/17 07/30/17 07:00 15:00 23:00 07:00 15:00 23:00 Intake Total 1000 ml 1600 ml 240 ml Output Total 975 ml 25 ml 1100 ml 1300 ml Balance 25 ml -25 ml 500 ml -1060 ml Intake Oral 600 ml 240 ml IV Total 1000 ml 1000 ml Output Urine Total 600 ml 600 ml 650 ml Stool Total 375 ml 500 ml 650 ml Gastric Drainage Total 25 ml # Voids 4 Result Diagram: 07/30/17 0410 07/28/17 0450 Other Results Laboratory Tests Test 07/30/17 04:10 White Blood Count 11.0 Red Blood Count 3.19 Hemoglobin 11.1 Hematocrit 32.1 Mean Corpuscular Volume 100.7 Mean Corpuscular Hemoglobin 34.8 Mean Corpuscular Hemoglobin Concent 34.6 Red Cell Distribution Width 12.3 Platelet Count 374 Mean Platelet Volume 6.5 Date/Time Source Procedure Growth Status 07/19/17 02:00 Blood Peripheral Aerobic Blood Culture - Final NO GROWTH IN 5 DAYS Complete 07/19/17 02:00 Blood Peripheral Anaerobic Blood Culture - Final NO GROWTH IN 5 DAYS Complete ROS General: Fatigue, Weakness HEENT: No: Sore Throat, Dysphagia, Other Cardiac: No: Chest Pain, Edema, Palpitations, Other Pulmonary: No: Cough, SOB, Wheezing, Other GI: Abdominal Pain /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 Eyes, negative conjunctival congestion or icterus. NECK: Supple. No increase in JVD. Negative thyromegaly. Central trachea. CHEST: Clear to auscultation. CARDIOVASCULAR: S1 and S2 audible. Unable to hear any S3 gallop. ABDOMEN: Soft. Tender at surgical site. With ileostomy bag on the left side. Has some brownish liquid. Also dressing and lower midline abdomen EXTREMITIES: No cyanosis or pedal edema appreciated. CENTRAL NERVOUS SYSTEM: Alert and oriented. Normal facial features. Normal speech. Normal power and tone. SKIN: Warm and dry. PSYCHIATRIC: Appropriate mood and affect. A/P Assessment and Plan Assessment and Plan 1. Small bowel obstruction. 2. Abdominal pain. 3. Nausea, vomiting 4. Hypokalemia. 5. Tachycardia. 6. Metastatic Ovarian cancer bilateral: status post surgery. PLAN Labs reviewed leukocytosis likely reactive: improved. hypokalemia improved Status post surgery on 07/27/17. 1. Diagnostic laparoscopy 2. Exploratory laparotomy. 3. Loop ileostomy. 4. Biopsy of recurrent ovarian tumor. Pathology report reviewed: PERITONEAL IMPLANT, EXCISION: - POORLY DIFFERENTIATED NON-SMALL CELL CARCINOMA IN FIBROADIPOSE TISSUE, COMPATIBLE WITH CLINICAL HISTORY OF OVARIAN CARCINOMA. - LYMPHOVASCULAR INVASION IS PRESENT. NG tube is out Diet as tolerated. Appreciate surgical help tachycardia, on IV Lopressor: stable Monitor blood pressure stable Monitor electrolytes Appreciate oncology input. Discussed with the patient. Encouraged OOB/activity. Discussed with RN Condition guarded AM labs Susanne Gibson MD Jul 30, 2017 10:54
--- NOTE | 2017-07-30 12:47 | HHI.PR ---
Subjective Subjective Notes feels much better, tolerating some sips, no N/V, walking in halls Objective Vitals/I&O Vital Signs Date Time Temp Pulse Resp B/P (MAP) Pulse Ox O2 Delivery O2 Flow Rate FiO2 07/30/17 10:42 Room Air 07/30/17 08:00 98.5 97 16 120/76 (91) 95 07/27/17 18:15 3 07/26/17 19:04 21 Labs Laboratory Tests Test 07/30/17 04:10 White Blood Count 11.0 Red Blood Count 3.19 Hemoglobin 11.1 Hematocrit 32.1 Mean Corpuscular Volume 100.7 Mean Corpuscular Hemoglobin 34.8 Mean Corpuscular Hemoglobin Concent 34.6 Red Cell Distribution Width 12.3 Platelet Count 374 Mean Platelet Volume 6.5 Date/Time Source Procedure Growth Status 07/19/17 02:00 Blood Peripheral Aerobic Blood Culture - Final NO GROWTH IN 5 DAYS Complete 07/19/17 02:00 Blood Peripheral Anaerobic Blood Culture - Final NO GROWTH IN 5 DAYS Complete Radiology Last 48 hours Impressions Abdomen X-Ray 07/25/17 0847 Signed Impressions: Service Date/Time: Tuesday, July 25, 2017 11:15 - CONCLUSION: Multiple dilated loops of small bowel which can be seen with partial obstruction. 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 Avelino Rucker MD Jul 30, 2017 12:47
[2017-07-31] VITALS (8 sets, daily range): BP systolic 115–135; BP diastolic 70–85; PULSE 80–106; RESP 16–20; TEMP 97.9–98.7; O2SAT 98
[2017-07-31] MEDS: METOPROLOL TARTRATE 5 MG/5 ML VIAL IV PUSH SCH ×2 (05:50→12:00)
[2017-07-31 06:35] LABS: HEMATOCRIT 31.8 % (35.0-46.0); MEAN CELL VOLUME 100.2 FL (80.0-100.0); MEAN CORPUSCULAR HEMOGLOBIN 34.3 PG (27.0-34.0); MEAN CORPUSCULAR HGB CONC 34.2 % (32.0-36.0); PLATELET COUNT 377 TH/MM3 (150-450); RED BLOOD COUNT 3.18 MIL/MM3 (4.00-5.30); RED CELL DISTRIBUTION WIDTH 12.5 % (11.6-17.2); REVIEW FLAG FINAL; WHITE BLOOD COUNT 11.3 TH/MM3 (4.0-11.0)
[2017-07-31 06:59] LABS: BICARBONATE 26.7 MEQ/L (21.0-32.0); POTASSIUM 3.7 MEQ/L (3.5-5.1)
[2017-07-31] MEDS: PANTOPRAZOLE SODIUM 40 MG VIAL IV PUSH SCH (09:25)
[2017-07-31] MEDS: ENOXAPARIN SODIUM 40 MG/0.4 ML SYRINGE SQ SCH (09:25)
[2017-07-31] MEDS: SODIUM CHLORIDE 0.9% FLUSH 10 ML FLUSH IV FLUSH SCH ×2 (09:26→21:28)
--- NOTE | 2017-07-31 10:32 | HHI.PR ---
Subjective Remarks 66yr old female seen and examined today. NAD. Ambulating outside room in hallways. Took a shower today. No CP/SOB/NVD/fever. Objective Objective Results - Vital Signs Date Time Temp Pulse Resp B/P (MAP) Pulse Ox O2 Delivery O2 Flow Rate FiO2 07/31/17 04:11 86 07/31/17 04:04 98.5 94 16 115/70 (85) 98 07/31/17 00:19 90 07/30/17 23:46 98.4 108 18 123/78 (93) 98 07/30/17 20:24 98.5 107 17 123/76 (92) 97 07/30/17 20:15 105 07/30/17 18:06 98.0 117 18 124/85 (98) 97 07/30/17 12:07 116 18 134/83 (100) 97 07/30/17 10:42 Room Air 07/30/17 10:40 Room Air I/O 07/30/17 07/30/17 07/30/17 07/31/17 07/31/17 07/31/17 07:00 15:00 23:00 07:00 15:00 23:00 Intake Total 240 ml 200 ml 600 ml Output Total 1300 ml 1450 ml 1210 ml Balance -1060 ml 200 ml -850 ml -1210 ml Intake Oral 240 ml 600 ml IV Total 200 ml Output Urine Total 650 ml 300 ml Stool Total 650 ml 1450 ml 910 ml # Voids 4 Result Diagram: 07/31/17 0600 07/31/17 0600 Other Results Laboratory Tests Test 07/31/17 06:00 White Blood Count 11.3 Red Blood Count 3.18 Hemoglobin 10.9 Hematocrit 31.8 Mean Corpuscular Volume 100.2 Mean Corpuscular Hemoglobin 34.3 Mean Corpuscular Hemoglobin Concent 34.2 Red Cell Distribution Width 12.5 Platelet Count 377 Mean Platelet Volume 6.5 Blood Urea Nitrogen 6 Creatinine 0.34 Random Glucose 94 Calcium Level 8.6 Sodium Level 133 Potassium Level 3.7 Chloride Level 98 Carbon Dioxide Level 26.7 Anion Gap 8 Estimat Glomerular Filtration Rate 191 Date/Time Source Procedure Growth Status 07/19/17 02:00 Blood Peripheral Aerobic Blood Culture - Final NO GROWTH IN 5 DAYS Complete 07/19/17 02:00 Blood Peripheral Anaerobic Blood Culture - Final NO GROWTH IN 5 DAYS Complete ROS General: Weakness, No: Fatigue, Other HEENT: No: Sore Throat, Dysphagia, Other Cardiac: No: Chest Pain, Edema, Palpitations, Other Pulmonary: No: Cough, SOB, Wheezing, Other GI: No: Abdominal Pain, BM, Diarrhea, N/V, Other /LEARNING ADMINISTRATOR: No: Dysuria, Urgency, Other Neuro/MS: No: Lightheaded, Confusion, Other Psych: No: Anxiety, Depression, Other Skin: No: Itching, Rash, Other Physical Exam Physical Exam PHYSICAL EXAMINATION Physical Exam VITAL SIGNS: Reviewed HEENT: Atraumatic, normocephalic. Eyes, negative conjunctival congestion or icterus. NECK: Supple. No increase in JVD. Negative thyromegaly. Central trachea. CHEST: Clear to auscultation. CARDIOVASCULAR: S1 and S2 audible. Unable to hear any S3 gallop. ABDOMEN: Soft. Mild tenderness at surgical site. With ileostomy bag on the left side. Has some stool. EXTREMITIES: No cyanosis or pedal edema appreciated. CENTRAL NERVOUS SYSTEM: Alert and oriented. Normal facial features. Normal speech. Normal power and tone. SKIN: Warm and dry. PSYCHIATRIC: Appropriate mood and affect. A/P Assessment and Plan Assessment and Plan 1. Small bowel obstruction. 2. Abdominal pain. 3. Nausea, vomiting 4. Hypokalemia. 5. Tachycardia. 6. Metastatic Ovarian cancer bilateral: status post surgery. PLAN Labs reviewed leukocytosis likely reactive: improved. hypokalemia improved Status post surgery on 07/27/17 POD #4. 1. Diagnostic laparoscopy 2. Exploratory laparotomy. 3. Loop ileostomy. 4. Biopsy of recurrent ovarian tumor. Pathology report reviewed: PERITONEAL IMPLANT, EXCISION: - POORLY DIFFERENTIATED NON-SMALL CELL CARCINOMA IN FIBROADIPOSE TISSUE, COMPATIBLE WITH CLINICAL HISTORY OF OVARIAN CARCINOMA. - LYMPHOVASCULAR INVASION IS PRESENT. NG tube is out Appreciate surgical help Diet: clear fluids- advance as tolerated ok to shower today per surgery Appreciate oncology input: Dr Rivera to discuss alternative chemotherapy with patient. tachycardia, on IV Lopressor: stable Monitor blood pressure: stable Monitor electrolytes Discussed with the patient. Encouraged OOB/activity. Discussed with Susanne Betts MD Jul 31, 2017 10:32
[2017-07-31] MEDS: METOPROLOL TARTRATE 25 MG TAB PO SCH (21:28)
[2017-08-01] VITALS (9 sets, daily range): BP systolic 111–130; BP diastolic 75–88; PULSE 81–106; RESP 16–18; TEMP 98.2–99; O2SAT 97–99
--- NOTE | 2017-08-01 08:12 | PD.ONC.PN ---
Subjective Subjective Remarks Patient in resting in bed with at bedside no complaints, still feels sore from surgery has been OOB walking and increasing intake but she states that she still has not gained her appetite back. many questions asked and answered to the best of my ability. will place consult for dietary to give information to help her keep her electrolytes WNL. ileostomy care/education by electric tripper machine operator and she is going to return this morning for more education but I will place consult for care once discharged from hospital to help with ileostomy care. Patient is anxious to start chemo as discussed with Dr. Rivera extensively. She understands that healing is an issue along with her physical and mental strength and ability to tolerate IV chemo. Objective Data Date Time Temp Pulse Resp B/P (MAP) Pulse Ox O2 Delivery O2 Flow Rate FiO2 08/01/17 04:13 98.2 89 16 118/75 (89) 98 08/01/17 04:01 104 08/01/17 00:22 98.3 89 16 130/86 (101) 97 08/01/17 00:12 81 07/31/17 20:05 104 07/31/17 19:33 98.7 106 18 124/78 (93) 98 07/31/17 16:40 98.6 100 20 135/85 (102) 98 07/31/17 15:00 104 07/31/17 08:00 97.9 97 18 127/78 (94) 98 07/31/17 08:00 80 08/01/17 08/01/17 08/01/17 07:00 15:00 23:00 Output Total 400 ml Balance -400 ml Result Diagram: 07/31/17 0607/31/17 0600 Laboratory Results Laboratory Tests Test 07/19/17 02:00 07/19/17 02:15 07/21/17 05:30 07/25/17 03:20 Prothrombin Time 11.3 SEC Prothromb Time International Ratio 1.0 RATIO Activated Partial Thromboplast Time 35.4 SEC Urine Color YELLOW Urine Turbidity CLEAR Urine pH 6.0 Urine Specific [place] 1.036 Urine Protein 30 mg/dL Urine Glucose (UA) NEG mg/dL Urine Ketones 80 mg/dL Urine Occult Blood NEG Urine Nitrite NEG Urine Bilirubin NEG Urine Urobilinogen LESS THAN 2.0 MG/DL Urine Leukocyte Esterase TRACE Urine RBC 1 /hpf Urine WBC 6 /hpf Urine Squamous Epithelial Cells 1 /hpf Microscopic Urinalysis Comment CULT NOT INDICATED Blood Urea Nitrogen 7 MG/DL Creatinine 0.46 MG/DL Random Glucose 105 MG/DL Total Protein 7.9 GM/DL Albumin 3.8 GM/DL Calcium Level 9.3 MG/DL Alkaline Phosphatase 86 U/L Aspartate Amino Transf (AST/SGOT) 21 U/L Alanine Aminotransferase (ALT/SGPT) 24 U/L Total Bilirubin 0.5 MG/DL Sodium Level 132 MEQ/L Potassium Level 3.0 MEQ/L Chloride Level 93 MEQ/L Carbon Dioxide Level 27.4 MEQ/L Lipase 215 U/L Lactic Acid Level 1.3 mmol/L Neutrophils (%) (Auto) 79.9 % Lymphocytes (%) (Auto) 7.3 % Monocytes (%) (Auto) 11.4 % Eosinophils (%) (Auto) 0.9 % Basophils (%) (Auto) 0.5 % Neutrophils # (Auto) 7.9 TH/MM3 Lymphocytes # (Auto) 0.7 TH/MM3 Monocytes # (Auto) 1.1 TH/MM3 Eosinophils # (Auto) 0.1 TH/MM3 Basophils # (Auto) 0.1 TH/MM3 CBC Comment DIFF FINAL Differential Comment Vitamin B12 Level GREATER THAN 2000 PG/ML Folate GREATER THAN 20.0 NG/ML Test 07/31/17 06:00 White Blood Count 11.3 TH/MM3 Red Blood Count 3.18 MIL/MM3 Hemoglobin 10.9 GM/DL Hematocrit 31.8 % Mean Corpuscular Volume 100.2 FL Mean Corpuscular Hemoglobin 34.3 PG Mean Corpuscular Hemoglobin Concent 34.2 % Red Cell Distribution Width 12.5 % Platelet Count 377 TH/MM3 Mean Platelet Volume 6.5 FL Blood Urea Nitrogen 6 MG/DL Creatinine 0.34 MG/DL Random Glucose 94 MG/DL Calcium Level 8.6 MG/DL Sodium Level 133 MEQ/L Potassium Level 3.7 MEQ/L Chloride Level 98 MEQ/L Carbon Dioxide Level 26.7 MEQ/L Anion Gap 8 MEQ/L Estimat Glomerular Filtration Rate 191 ML/MIN Imaging Studies Last Impressions Small Bowel X-Ray 07/26/17 0000 Signed Impressions: Service Date/Time: Wednesday, July 26, 2017 10:49 - CONCLUSION: 1. Findings compatible with small bowel obstruction. Silviano Dang MD Abdomen X-Ray 07/25/17 0847 Signed Impressions: Service Date/Time: Tuesday, July 25, 2017 11:15 - CONCLUSION: Multiple dilated loops of small bowel which can be seen with partial obstruction. Benigno Valle MD Administered Medications Medications (Trade) Dose Ordered Sig/Olivier Route PRN Reason Start Time Stop Time Status Last Admin Dose Admin Sodium Chloride (NS Flush) 2 ml BID IV FLUSH 07/19/17 09:00 07/31/17 21:28 Ondansetron HCl (Zofran Inj) 4 mg Q6H PRN IVP NAUSEA OR VOMITING 07/19/17 04:00 07/26/17 22:04 Enoxaparin Sodium (Lovenox Inj) 40 mg Q24H SQ 07/19/17 09:00 07/31/17 09:25 Acetaminophen 100 ml @ 400 mls/hr Q6H PRN IV SEE LABEL COMMENTS 07/19/17 17:00 07/25/17 11:51 Metoprolol Tartrate (Lopressor) 25 mg BID PO 07/31/17 21:00 07/31/17 21:28 Objective Remarks GENERAL: thin and frail. SKIN: Warm and dry. HEAD: Normocephalic. EYES: No scleral icterus. No injection or drainage. CARDIOVASCULAR: Regular rate and rhythm without murmurs. RESPIRATORY: Breath sounds equal bilaterally. No accessory muscle use. GASTROINTESTINAL: Abdomen soft, non-tender, nondistended, with ileostomy to left quad, liquid brown drainage EXTREMITIES: No cyanosis, or edema. MUSCULOSKELETAL: Adequate muscle tone. NEUROLOGICAL: No obvious focal deficit. Awake, alert, and oriented x3. PSYCHIATRIC: Appropriate mood and affect; insight and judgment normal. Assessment/Plan Problem List: (1) Ovarian cancer, bilateral ICD Codes: C56.1 - Malignant neoplasm of right ovary; C56.2 - Malignant neoplasm of left ovary Status: Chronic Plan: s/p completion of taxol and carbo X 2 months ago explained that this is a difficult situation to be in with resistant disease. Our hopes is that she would respond to treatment. There is also consideration of clinical trial and that is something that they are considering as well. (2) SBO (small bowel obstruction) ICD Codes: K56.609 - Unspecified intestinal obstruction, unspecified as to partial versus complete obstruction Status: Acute Plan: s/p ex lap, ileostomy for SBO r/t tumor burden general surgery following patient advanced to full liquid diet NG tube has been discontinued advance diet per general surgery monitor I/Os encourage intake consult dietary to educate on electrolytes Attending Statement Discussed with Dr. Rivera and he is in agreement with plan. time spent face to face with Mr and Mrs Michael >35min Edita Rosas Aug 01, 2017 08:12
[2017-08-01] MEDS: SODIUM CHLORIDE 0.9% FLUSH 10 ML FLUSH IV FLUSH SCH ×2 (08:46→20:47)
[2017-08-01] MEDS: ENOXAPARIN SODIUM 40 MG/0.4 ML SYRINGE SQ SCH (08:46)
[2017-08-01] MEDS: METOPROLOL TARTRATE 25 MG TAB PO SCH ×2 (08:46→20:47)
[2017-08-01] MEDS: PANTOPRAZOLE SOD 40 MG DELAYED RELEASE TAB PO SCH (08:46)
--- NOTE | 2017-08-01 09:53 | HHI.PR ---
Subjective Interval History Alert, oriented, denies complaints, would like to have her diet advanced and then go home, seeing the presence of Review of Systems Constitutional Constitutional Remarks 10 systems reviewed and negative except for the above Vitals/Results Vital Signs Vital Signs Date Time Temp Pulse Resp B/P (MAP) Pulse Ox O2 Delivery O2 Flow Rate FiO2 08/01/17 08:06 99.0 103 18 111/81 (91) 98 08/01/17 04:13 98.2 89 16 118/75 (89) 98 08/01/17 04:01 104 08/01/17 00:22 98.3 89 16 130/86 (101) 97 08/01/17 00:12 81 07/31/17 20:05 104 07/31/17 19:33 98.7 106 18 124/78 (93) 98 07/31/17 16:40 98.6 100 20 135/85 (102) 98 07/31/17 15:00 104 CBC/BMP: 07/31/17 0600 07/31/17 0600 Physical Exam General General Appearance: No Acute Distress, Comfortable, Malnourished Eyes Eye Exam: Pupils Reactive Ears & Nose Ears & Nose Exam: Nasal Mucosa [place] Throat Throat Exam: Oral Mucosa [place] & Moist Neck Neck Exam: Trachea Midline Pulmonary Resp Exam: Breath Sounds Equal Cardiology CV Exam: Normal Sinus Rhythm, Good Perfusion Gastrointestinal/Abdomen GI Exam: Non-Tender, Bowel Sounds Present GI Remarks Ileostomy in place with liquid, otherwise normal-looking stool Musculoskeletal MS Exam: Normal Tone, Good Strength Integumentary Skin Exam: Warm, Dry Neurologic Neuro Exam: Awake, Oriented, Speech Clear, Moving All Extremities Psychiatric Psych Exam: Appropriate Responses VTE Prophylaxis VTE Prophylaxis Meds: Lovenox Assessment/Plan Assessment/Plan Assessment Admitted with abdominal pain Diagnosed with small bowel obstruction, resolved Status post laparotomy with ileostomy on 07/27/17 Initially had been put on nasogastric suctioning, discontinued Hypokalemia, resolved Tachycardia, resolved Metastatic bilateral ovarian cancer, status post surgery, chemotherapy, radiation Moderate protein calorie malnutrition Metastases including the falciform ligament, small bowel and mesentery PLAN Currently on liquid diet, advance as allowed by surgery Possible discharge later today or tomorrow Oncology following She will follow also with oncology as outpatient to consider possible further cancer treatment Discussed with patient and Discussed with nurse 35 minutes Shaji Boykin MD Aug 01, 2017 09:53
[2017-08-01] MEDS ORDERED: ACETAMINOPHEN 325 MG TAB PO PRN (10:00)
--- NOTE | 2017-08-01 11:23 | HHI.PR ---
Subjective Subjective Notes working with ostomy nurse, tolerating diet. stoma working well Objective Vitals/I&O Vital Signs Date Time Temp Pulse Resp B/P (MAP) Pulse Ox O2 Delivery O2 Flow Rate FiO2 08/01/17 08:06 99.0 103 18 111/81 (91) 98 07/30/17 10:42 Room Air Labs Date/Time Source Procedure Growth Status 07/19/17 02:00 Blood Peripheral Aerobic Blood Culture - Final NO GROWTH IN 5 DAYS Complete 07/19/17 02:00 Blood Peripheral Anaerobic Blood Culture - Final NO GROWTH IN 5 DAYS Complete Radiology Last 48 hours Impressions Abdomen X-Ray 07/25/17 0847 Signed Impressions: Service Date/Time: Tuesday, July 25, 2017 11:15 - CONCLUSION: Multiple dilated loops of small bowel which can be seen with partial obstruction. Benigno Valle MD Abdomen: Non-distended, Post-op tenderness, BS normal Narrative Exam ostomy LLQ A/P Assessment and Plan POD 4 exp lap, diverting loop ileostomy stable ok to shower Tuesday dr andrea to discuss alternative chemotherapy with patient. plan DC in am with [facility] will FU in office on Avelino Rucker MD Aug 01, 2017 11:23
--- NOTE | 2017-08-01 11:50 | PD.WCN.NOT ---
Wound Consult Description: Consult for New Ostomy Teaching of LLQ per Dr Rucker Communicated with: Patient PabloRN Patient Dr Rucker Recommendation: Write down any questions you may have for our next teaching session on Tuesday08/02/17 in the am. Practice emptying the pouch when 1/3-1/2 full Assess wafer/barrier for leaks often Drink plenty of fluids. Additional Information: Patient seen on [facility] for ostomy teaching and appliance change with at bedside. Ostomy Type: Other (Loop Ileostomy) Surgeon: Avelino Rucker MD Date of Surgery: Jul 27, 2017 Complete: Starter kit (Verbal consent obtained for starter kit to be sent to patient home via [employer] and [employer]), Education materials, Rx (Left on chart ), Other (Box of supplies ordered from [facility] in size 1 3/4" as well as stoma paste , stoma powder, skin prep spray, and dev seal) Educated patient on: Diet Drinking plenty of fluids When to empty pouch of effluent (when 1/3-1/2 full) When to change barrier/wafer How to remove barrier Stoma appearance Shape and size of stoma Output consistency Encrusting for skin complications When and how to use barrier ring and stoma paste Molding barrier to fit stoma size Attaching pouch to barrier Additional information Patient seen this am from [id number] for Ostomy teaching, reinforcement of ostomy teaching, changing of barrier and pouch with peristomal skin care. Patient requested to sit up in chair for ostomy appliance change. Different barriers/wafers and pouches were discussed first. Education on use of barrier rings was given and demonstrated with use of practice stoma as well as stoma paste. Encrusting was discussed for possible skin problems in the future. Patient had many questions that were answered. There were a dozen interruptions during teaching that extended the teaching session longer than anticipated, however all questions were answered and all products given were discussed and demonstrated for use. The pouch was emptied by patient prior to removal of wafer. The barrier (wafer) was removed using adhesive removal wipes by the patient independently. Once the barrier was removed the peristomal skin and back side of barrier was visualized for breakdown. The peristomal skin was then cleansed with water and washcloth only. The stoma was measured by patient and conventional mortgage underwriter for correct appliance size. Stoma is noted to be red, flush, moist, functioning with green/yellow liquid effluent and lumens noted to center towards 9 o'clock and at center towards 3 o'clock as this is a loop ileostomy. Mucocutaneous junction is noted with sutures circumferentially, otherwise unremarkable. Peristomal skin is reddened without breakdown noted. Moldable wafer was then molded to mirror stoma for proper fit of appliance that was placed by patient with the assistance of conventional mortgage underwriter with taking pictures during process. Once barrier was properly applied, the pouch was then attached and closed by conventional mortgage underwriter and patient all while Dr Rucker was observing. Dr Rivera also came to bedside during assessment and appliance change. Appointment made for tomorrow morning 08/02/17 @ [phone] for another teaching session and appliance check. Patient at this time gave verbal consent for starter kit to be sent to patient home. Jackeline SandraAbdifatah Aug 01, 2017 11:50
--- NOTE | 2017-08-01 13:40 | MB ---
cc: HERMINIO NOBLE M.D., KELLY L. MD WENHAM,MD FANY BENNETT JAWED A. MD CASIMIRO, JESSY M.D. WHITE, MARK W. M.D. DATE OF CONSULTATION: 08/01/2017 I met with Alyssia Michael and her . We had an extensive discussion of approximately 45 minutes duration. I have updated them since we spoke at length on Tuesday. I had the opportunity to speak to Dr. Douglas Chowdhury who heads up the clinical trials and gynecologic oncology at [facility], made them aware that there is a phase II trial for which she may be eligible, which is dose dense Taxol plus a PD1 inhibitor with a weekly infusion treatment schedule. I summarized what I know about the trial and answered questions related to this based on my understanding. We have also contacted [facility] and let them know that we would like her to see Dr. Chowdhury in consultation to learn more about this trial as well as second opinion regarding treatment and recommendations. They provided us with a registration number and will call her within the next 24-48 hours with an appointment, and all of this information is provided to them. 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 They may also wish to pursue the possibility of clinical trial or another opinion, specifically at [facility] in [place] but they will start with meeting with Dr. Chowdhury in [place] and seek his advise regarding whether or not there may be trials, with pursuing yet another opinion at the [facility]. We agreed to not initiate any treatment here. I will let her meet in consultation at [facility]. We will see her back in our office thereafter and move forward based on where they are in their decision-making at that time. She is also aware that some of the tissue has been sent for chemosensitivity assay which may play a role in decision making at some point as well. More questions were asked and answered. They expressed good understanding and agree with this plan. MD ZOE Wright/WILLIE /12:37 PM /1:14 PM
--- NOTE | 2017-08-01 17:20 | PD.WCN.NOT ---
Wound Consult Description: Received Vocera call that patient needed to speak with director data analytics again. Communicated with: Patient LUÍS Shah RN Recommendation: Make sure that the pouch is completely closed to avoid leaking Additional Information: Patient seen on [facility] for leaking appliance. Once patient appliance was visualized it was noted that the pouch was not completely closed where the pouch meets the barrier (flange). The entire appliance was changed due to soiling of barrier. Ostomy Type: Other (Loop Ileostomy) Surgeon: Avelino Rucker MD Date of Surgery: Jul 27, 2017 Complete: Starter kit (Verbal consent obtained for starter kit to be sent to patient home via [employer] and [employer]), Education materials, Rx (Left on chart ), Other (Box of supplies ordered from [facility] in size 1 3/4" as well as stoma paste , stoma powder, skin prep spray, and dev seal) Educated patient on: Ensuring the pouch is completely closed at the flange area. Jackeline Sandra [facility] Aug 01, 2017 17:20
[2017-08-02 00:05] VITALS: PULSE 81
[2017-08-02 00:27] VITALS: BP 110/73; PULSE 88; RESP 18; TEMP 98.4; O2SAT 98
[2017-08-02 05:32] VITALS: BP 114/70; PULSE 95; RESP 18; TEMP 98.3; O2SAT 98
[2017-08-02 08:02] VITALS: BP 109/77; PULSE 110; RESP 18; TEMP 97.8; O2SAT 96
[2017-08-02 08:24] VITALS: PULSE 112
[2017-08-02] MEDS: PANTOPRAZOLE SOD 40 MG DELAYED RELEASE TAB PO SCH (09:39)
[2017-08-02] MEDS: ENOXAPARIN SODIUM 40 MG/0.4 ML SYRINGE SQ SCH (09:39)
[2017-08-02] MEDS: METOPROLOL TARTRATE 25 MG TAB PO SCH (09:39)
[2017-08-02] MEDS: SODIUM CHLORIDE 0.9% FLUSH 10 ML FLUSH IV FLUSH SCH (09:39)
--- NOTE | 2017-08-02 10:38 | PD.WCN.NOT ---
Wound Consult Description: Ostomy teaching and reinforcement Communicated with: Patient Patient at bedside LUÍS Shah Recommendation: Make sure that the pouch is completely closed to avoid leaking Change wafer/pouch when needed Additional Information: Patient seen on [facility] for Ostomy teaching and to answer any questions the patient and have regarding supplies and diet Ostomy Type: Other (Loop Ileostomy) Surgeon: Avelino Rucker MD Date of Surgery: Jul 27, 2017 Complete: Starter kit (Verbal consent obtained for starter kit to be sent to patient home via [facility] and [employer]), Education materials, Rx (Left on chart ), Other (Box of supplies ordered from [facility] in size 1 3/4" as well as stoma paste , stoma powder, skin prep spray, and dev seal) Educated patient on: Emptying pouch when 1/3-1/2 full Change wafer every 3-5 days and pouch PRN Always carry an extra appliance when leaving home for ostomy emergencies Assess back side of barrier when removing wafer Measure stoma over the next few weeks, stoma will normally decrease in size Additional information Patient seen this am from [id number] for Ostomy assessment. Loop Ileostomy noted to left abdomen is flush with abdomen, red, moist, functioning with green soft effluent and liquid noted to pouch that was emptied by patient. Wafer and pouch are intact without leaks noted. Patient is being discharged today with 5 complete ostomy supplies and 3 more are being sent in the starter kit from [facility] via 2 day air to arrive tomorrow. Patient is also going to have home health care RN for additional reinforcement of teaching with the new ileostomy. All questions were answered at this time and neither the patient nor the have any more questions or requests. They both state being comfortable with the information given and understand that they have the needed resources available after discharge. Jackeline Sandra [facility] Aug 02, 2017 10:38
[2017-08-02] MEDS ORDERED: OXYC1TAB63 PO (11:33)
[2017-08-02] MEDS ORDERED: ONDA1TAB17 PO (11:33)
--- NOTE | 2017-08-02 11:37 | HHI.FF ---
Face to Face Verification Diagnosis: (1) Cancer (2) SBO (small bowel obstruction) (3) Ovarian cancer, bilateral Physical Therapy Order: Evaluate and Treat Home Health Nursing Order: Medical education Signs/symptoms of disease process Wound care and dressing changes I have seen patient Alyssia Michael on 08/02/17. My clinical findings support the need for the requested home health care services because: Ltd mobility - disease progression I certify that my clinical findings support that this patient is homebound because: Post-op weakness Shaji Boykin MD Aug 02, 2017 11:37
[2017-08-02 11:38] VITALS: BP 113/76; PULSE 93; RESP 18; TEMP 98.4; O2SAT 98
--- NOTE | 2017-08-02 11:40 | HHI.PR ---
Subjective Interval History Alert, oriented, eating some, walks with some help to the bathroom, ostomy bag with liquid stool in place, no abdominal pain, wants to go home Review of Systems Constitutional Constitutional Remarks 10 systems reviewed and negative except for the above Vitals/Results Intake & Output 08/02/17 08/02/17 08/03/17 15:00 23:00 07:00 Output Total 100 ml Balance -100 ml Stool Total 100 ml # Voids 1 Vital Signs Vital Signs Date Time Temp Pulse Resp B/P (MAP) Pulse Ox O2 Delivery O2 Flow Rate FiO2 08/02/17 08:02 97.8 110 18 109/77 (88) 96 08/02/17 05:32 98.3 95 18 114/70 (85) 98 08/02/17 00:27 98.4 88 18 110/73 (85) 98 08/02/17 00:05 81 08/01/17 20:46 98.4 98 18 120/88 (99) 99 08/01/17 20:08 106 08/01/17 16:42 98.4 106 18 126/86 (99) 99 CBC/BMP: 07/31/17 0600 07/31/17 0600 Physical Exam General General Appearance: No Acute Distress, Comfortable, Malnourished Eyes Eye Exam: Pupils Reactive Ears & Nose Ears & Nose Exam: Nasal Mucosa [place] Throat Throat Exam: Oral Mucosa [place] & Moist Neck Neck Exam: Trachea Midline Pulmonary Resp Exam: Breath Sounds Equal Cardiology CV Exam: Normal Sinus Rhythm, Good Perfusion Gastrointestinal/Abdomen GI Exam: Non-Tender, Bowel Sounds Present GI Remarks Ileostomy in place with liquid, otherwise normal-looking stool Musculoskeletal MS Exam: Normal Tone, Good Strength Integumentary Skin Exam: Warm, Dry Neurologic Neuro Exam: Awake, Oriented, Speech Clear, Moving All Extremities Psychiatric Psych Exam: Appropriate Responses VTE Prophylaxis VTE Prophylaxis Meds: Lovenox Assessment/Plan Assessment/Plan Assessment Admitted with abdominal pain Diagnosed with small bowel obstruction, resolved Status post laparotomy with ileostomy on 07/27/17 Initially had been put on nasogastric suctioning, discontinued Hypokalemia, resolved Tachycardia, resolved Metastatic bilateral ovarian cancer, status post surgery, chemotherapy, radiation Moderate protein calorie malnutrition Metastases including the falciform ligament, small bowel and mesentery PLAN Cleared for discharge by surgery, follow as outpatient discharge home today Oncology following as outpatient She will follow also with oncology as outpatient to consider possible further cancer treatment Encouraged to use dietary supplements Discussed with patient Discussed with nurse 35 minutes Discharge Minutes: 40 Shaji Boykin MD Aug 02, 2017 11:40
== END 2017-08-02 13:48 | disposition home or self-care (01) | DRG 330 ==
LOC: NEPC 23:55 → NEDA 07-19 04:21 → HOCA 07-19 05:04 → HCIS 07-21 12:04
PROVIDERS: ADMIT Specialist; ATTEND Specialist
PROC: 0WBH0ZX Excision of Retroperitoneum, Open Approach, Diagnostic (ICD-10-PCS; 2017-07-27)
PROC: 0D9670Z Drainage of Stomach with Drainage Device, Via Natural or Artificial Opening (ICD-10-PCS; 2017-07-27)
PROC: 0D1B0Z4 Bypass Ileum to Cutaneous, Open Approach (ICD-10-PCS; principal; 2017-07-27 14:54)
PROC: 0WJP4ZZ Inspection of Gastrointestinal Tract, Percutaneous Endoscopic Approach (ICD-10-PCS; 2017-07-27 14:54)
DX: C78.6 Secondary malignant neoplasm of retroperitoneum and peritoneum (principal); E44.0 Moderate protein-calorie malnutrition; C78.4 Secondary malignant neoplasm of small intestine; C78.5 Secondary malignant neoplasm of large intestine and rectum; E87.1 Hypo-osmolality and hyponatremia; E86.0 Dehydration; I10 Essential (primary) hypertension; E87.6 Hypokalemia; E16.2 Hypoglycemia, unspecified; R00.0 Tachycardia, unspecified; E87.5 Hyperkalemia; K21.9 Gastro-esophageal reflux disease without esophagitis; D72.829 Elevated white blood cell count, unspecified; Z53.31 Laparoscopic surgical procedure converted to open procedure; Z68.20 Body mass index [BMI] 20.0-20.9, adult; Z85.43 Personal history of malignant neoplasm of ovary; Z88.0 Allergy status to penicillin; Z85.820 Personal history of malignant melanoma of skin; Z90.710 Acquired absence of both cervix and uterus; Z92.21 Personal history of antineoplastic chemotherapy
CPT/HCPCS: 43753; 71010; 74000; 74250; 80048; 80053; 81001; 82607; 82746; 83605; 83690; 85025; 85027; 85610; 85730; 87040; 88305; 93005; 96361; 96374; C9113; J0131; J0330; J0690; J1100; J1650; J1885; J2175; J2270; J2370; J2405; J2710; J3010; J3480; J7030; J7120; Q9963

== ENCOUNTER 2017-09-30 13:48 | Emergency (ER) | payer MEDICARE, BC ==
[~2017-09-30 13:48] MED LIST changes: -OMEP20TA PO; +OMEP20TA93 PO; -ONDA1TAB17 PO; +ONDA8TAB7 PO
[2017-09-30 13:50] VITALS: BP 156/86; PULSE 132; RESP 14; TEMP 98.6; O2SAT 98
[2017-09-30 15:09] LABS: AUTOMATED NEUTROPHIL # 7.3 TH/MM3 (1.8-7.7); BASOPHIL # 0.1 TH/MM3 (0-0.2); EOSINOPHIL % 0.3 % (0.0-4.0); HEMATOCRIT 31.2 % (35.0-46.0); HEMOGLOBIN 10.7 GM/DL (11.6-15.3); LYMPH % 6.8 % (9.0-44.0); LYMPHOCYTE # 0.6 TH/MM3 (1.0-4.8); MEAN CELL VOLUME 97.8 FL (80.0-100.0); MEAN CORPUSCULAR HEMOGLOBIN 33.6 PG (27.0-34.0); MEAN CORPUSCULAR HGB CONC 34.4 % (32.0-36.0); MEAN PLATELET VOLUME 7.2 FL (7.0-11.0); MONO % 6.8 % (0.0-8.0); MONOCYTE # 0.6 TH/MM3 (0-0.9); NEUT % 85.1 % (16.0-70.0); PLATELET COUNT 482 TH/MM3 (150-450); RED BLOOD COUNT 3.19 MIL/MM3 (4.00-5.30); RED CELL DISTRIBUTION WIDTH 15.9 % (11.6-17.2); WHITE BLOOD COUNT 8.5 TH/MM3 (4.0-11.0)
--- NOTE | 2017-09-30 15:14 | RADRPT ---
EXAM DATE/TIME: 09/30/2017 14:34 [facility] COMPARISON: US ABDOMEN - LOWER LIMITED, November 24, 2016, 10:27. INDICATIONS : Ascites. MEDICAL HISTORY : Hypertension. GERD. Melanoma. Ovarian cancer. Chemotherapy. SURGICAL HISTORY : Port placement. ENCOUNTER: Initial ACUITY: 2 days PAIN SCORE: 3/10 LOCATION: Abdomen. AREA EVALUATED: Abdomen. FINDINGS: Imaging of the abdomen and pelvis was performed to evaluate for ascites for possible paracentesis. Th ere is a small amount of ascites with fluid primarily along the inferior margin of the liver and sple en. CONCLUSION: 1. Small amount of ascites with fluid primarily along the inferior margin of the liver and spleen. Shayne Braun MD on September 30, 2017 at 15:11 Board Certified Radiologist. This report was verified electronically.
[2017-09-30 15:26] LABS: ALBUMIN 3.3 GM/DL (3.4-5.0); AST (GOT) 107 U/L (15-37); BLOOD UREA NITROGEN 12 MG/DL (7-18); CHLORIDE 99 MEQ/L (98-107); CREATININE 0.71 MG/DL (0.50-1.00); GLOMERULAR FILTRATION RATE 82 ML/MIN (>89); GLUCOSE,RANDOM 100 MG/DL (74-106); SODIUM (NA) 132 MEQ/L (136-145)
--- NOTE | 2017-09-30 15:27 | PD ---
HPI Chief Complaint: Abdominal Pain Time Seen by Provider: 13:57 Travel History International Travel<30 days: No Contact w/Intl Traveler<30days: No Traveled to known affect area: No History of Present Illness HPI 66-year-old female just emergency department for evaluation of feeling of fullness in her abdomen x 2 days. Patient states she has had a paracentesis the past to evacuate ascites. She believes that she has fluid on her abdomen again. Patient has a history of ileostomy that was placed in our facility last July, 2 months ago. Patient does not report any current problem with her ileostomy. She states that she believes is draining appropriately. Patient has a history of ovarian cancer and is followed by [facility] in [place]. Patient states her last IV chemotherapy and blood work was on Tuesday. Patient denies any fever, chills, chest pain, shortness breath, dysuria, hematuria. She denies any cough. Patient denies any abdominal pain and states it feels full and bloated. Patient denies any nausea or vomiting. PFSH Past Medical History Anxiety: Yes (occasional, not diagnosed by MD) Heart Rhythm Problems: No Cancer: Yes (melanoma, ovarian) Cardiovascular Problems: Yes (TACHYCARDIA) High Cholesterol: No Chemotherapy: Yes Chest Pain: No Congestive Heart Failure: No Diabetes: No Endocrine: No Gastrointestinal Disorders: Yes (acid reflux r/t chemo ) GERD: No Genitourinary: No Hepatitis: No Hiatal Hernia: No Hypertension: Yes Immune Disorder: No Implanted Vascular Access Dvce: Yes Kidney Stones: No Musculoskeletal: No Neurologic: No Psychiatric: No Reproductive: No Respiratory: No Radiation Therapy: No Renal Failure: No Thyroid Disease: No Ulcer: No ?: Not Past Surgical History Abdominal Surgery: No AICD: No Arteriovenous Shunt: No Body Medical Devices: right upper chest port Cardiac Surgery: No Ear Surgery: No Endocrine Surgery: No Eye Surgery: No Genitourinary Surgery: No Gynecologic Surgery: Yes (biopsy of the omentum, hysterectomy ) Insulin Pump: No Joint Replacement: No Oral Surgery: No Pacemaker: No Thoracic Surgery: Yes (right upper chest port) Other Surgery: Yes Social History Alcohol Use: Yes (2 GLASSES NIGHTLY) Tobacco Use: No Substance Use: Yes (2-3 glasses /day) Allergies-Medications (Allergen,Severity, Reaction): Coded Allergies: penicillin G (Unverified Allergy, Severe, Diarrhea, 10/10/17) Reported Meds & Prescriptions Reported Meds & Active Scripts Active Oxycodone-Acetaminophen 5-325 mg Tab 1 Tab PO Q4H PRN Ondansetron (Ondansetron HCl) 8 Mg Tab 8 Mg PO TID Reported Dexamethasone 4 Mg Tab 4 Mg PO DIRECTED Omeprazole 20 Mg Tab 20 Mg PO DAILY Metoclopramide (Metoclopramide HCl) 10 Mg Tab 10 Mg PO TIDAC Metoprolol Tartrate 25 Mg Tab 25 Mg PO BID Review of Systems Except as stated in HPI: all other systems reviewed are Neg Physical Exam Narrative GENERAL: Well-nourished well-developed 66-year-old female in no acute distress. Well appearing and conversing while resting on that. SKIN: Focused skin assessment warm/dry. HEAD: Atraumatic. Normocephalic. EYES: Pupils equal and round. No scleral icterus. No injection or drainage. ENT: No nasal bleeding or discharge. Mucous membranes pink and moist. NECK: Trachea midline. No JVD. CARDIOVASCULAR: Regular rate and rhythm. No murmur appreciated. RESPIRATORY: No accessory muscle use. Clear to auscultation. Breath sounds equal bilaterally. GASTROINTESTINAL: Ileostomy intact and draining brown colored liquid stool. Abdomen soft, non-tender. Very mild abdominal swelling. Hepatic and splenic margins not palpable. MUSCULOSKELETAL: No obvious deformities. No clubbing. No cyanosis. No edema. NEUROLOGICAL: Awake and alert. No obvious cranial nerve deficits. Motor grossly within normal limits. Normal speech. PSYCHIATRIC: Appropriate mood and affect; insight and judgment normal. Data Data Last Documented VS Vital Signs Date Time Temp Pulse Resp B/P (MAP) Pulse Ox O2 Delivery O2 Flow Rate FiO2 09/30/17 15:04 15 09/30/17 13:50 98.6 132 156/86 (109) 98 Orders Orders Us Abdomen Lower Limited (09/30/17 ) Complete Blood Count With Diff (09/30/17 14:35) Comprehensive Metabolic Panel (09/30/17 14:35) Labs Laboratory Tests Test 09/30/17 14:45 White Blood Count 8.5 TH/MM3 Red Blood Count 3.19 MIL/MM3 Hemoglobin 10.7 GM/DL Hematocrit 31.2 % Mean Corpuscular Volume 97.8 FL Mean Corpuscular Hemoglobin 33.6 PG Mean Corpuscular Hemoglobin Concent 34.4 % Red Cell Distribution Width 15.9 % Platelet Count 482 TH/MM3 Mean Platelet Volume 7.2 FL Neutrophils (%) (Auto) 85.1 % Lymphocytes (%) (Auto) 6.8 % Monocytes (%) (Auto) 6.8 % Eosinophils (%) (Auto) 0.3 % Basophils (%) (Auto) 1.0 % Neutrophils # (Auto) 7.3 TH/MM3 Lymphocytes # (Auto) 0.6 TH/MM3 Monocytes # (Auto) 0.6 TH/MM3 Eosinophils # (Auto) 0.0 TH/MM3 Basophils # (Auto) 0.1 TH/MM3 CBC Comment DIFF FINAL Differential Comment Blood Urea Nitrogen 12 MG/DL Creatinine 0.71 MG/DL Random Glucose 100 MG/DL Total Protein 7.2 GM/DL Albumin 3.3 GM/DL Calcium Level 9.0 MG/DL Alkaline Phosphatase 253 U/L Aspartate Amino Transf (AST/SGOT) 107 U/L Alanine Aminotransferase (ALT/SGPT) 108 U/L Total Bilirubin 0.7 MG/DL Sodium Level 132 MEQ/L Potassium Level 4.1 MEQ/L Chloride Level 99 MEQ/L Carbon Dioxide Level 25.0 MEQ/L Anion Gap 8 MEQ/L Estimat Glomerular Filtration Rate 82 ML/MIN MDM Medical Decision Making Medical Screen Exam Complete: Yes Emergency Medical Condition: Yes Differential Diagnosis Differential diagnoses include but not limited to ascites, ovarian CA, electrolyte abnormality, fluid overload Narrative Course CBC, CMP ordered and pending. Abdominal ultrasound ordered and pending. CBC shows mild anemia with hemoglobin 10.7, medical record reviewed and it is consistent with the patient's baseline CMP shows mild hyponatremia at 132, elevated liver enzymes with AST 107 and ALT 108 Abdominal ultrasound shows small amount of ascites with fluid primarily along the inferior margin of the liver and spleen. Based on patient's symptoms, clinical presentation, lab results, radiological results, vital sign review and physical exam it is not necessary to admit the patient to the hospital or keep the patient in the emergency department for further evaluation. Patient will be discharged home. Diagnosis Primary Impression: Abdominal bloating Additional Instructions: Please return to emergency department if your symptoms return or worsen. Disposition: 01 DISCHARGE HOME Condition: Stable Carmen Wright ZAHIRA Sep 30, 2017 15:26
[2017-09-30 15:31] LABS: ALKALINE PHOSPHATASE 253 U/L (45-117); ALT (GPT) 108 U/L (10-53); TOTAL BILIRUBIN ADULT 0.7 MG/DL (0.2-1.0); TOTAL PROTEIN 7.2 GM/DL (6.4-8.2)
== END 2017-09-30 16:05 | disposition home or self-care (01) ==
LOC: NEPC 13:48
DX: C56.9 Malignant neoplasm of unspecified ovary (principal); I10 Essential (primary) hypertension; Z85.820 Personal history of malignant melanoma of skin
CPT/HCPCS: 76705; 80053; 85025; 99285

== ENCOUNTER 2017-10-28 09:55 | Day surgery (SDC) | payer MEDICARE, BC ==
[2017-10-28 11:35] VITALS: BP 109/74; PULSE 104; RESP 20; TEMP 98.2; O2SAT 95
[2017-10-28 11:50] VITALS: BP 102/70; PULSE 103; RESP 16; O2SAT 97
--- NOTE | 2017-10-28 12:01 | PD.RAD ---
Post US Procedure Prog Note Pre Procedure Diagnosis: (1) Ascites (2) Ovarian cancer, bilateral Post Procedure Diagnosis: (1) Ovarian cancer, bilateral (2) Ascites Procedure Date: Oct 28, 2017 Supervising Radiologist: Ralph Patel Proceduralist/Assist: Nunu Deng RDMS Estimated blood loss: none Anesthesia: Local Plan of Activity Patient to Unit: ROPU Patient Condition: Good See PACS Report for procedural detail/treatment Drainage Procedure Procedure 1 Imaging Guidance: Ultrasound Side: Right Procedure Type: Paracentesis Drainage: Suction Fluid Removal (CCs): 1800 Fluid Description: Cloudy, Red Plan to ROPU then discharge if stable. Ralph Patel MD Oct 28, 2017 12:01
--- NOTE | 2017-10-28 12:02 | RADRPT ---
EXAM DATE/TIME: 10/28/2017 10:32 [facility] COMPARISON: No previous studies available for comparison. INDICATIONS : Ascites. MEDICAL HISTORY : Hypertension. Gastroesophageal reflux disease. Melanoma. Ovarian cancer. SURGICAL HISTORY : Port placement. Chemotherapy. ENCOUNTER: Initial ACUITY: 2 weeks PAIN SCORE: 0/10 LOCATION: Right lower quadrant FLUID: Total volume of 1,800 cc of cloudy, red fluid was removed. Fluid was discarded. Paracentesis was therapeutic only. Post procedure scanning reveals no hematoma or other complication. TECHNIQUE: 1. Ultrasound guidance for abdominal paracentesis. 2. Paracentesis. The risks, benefits, and alternatives to ultrasound guided paracentesis were explained to the patient in detail including the risk of bleeding and infection. Written and verbal informed consent was obt ained. With the patient on the ultrasound table, ultrasound imaging was used to select the most appropriate approach for paracentesis. Overlying skin was prepped and draped in the usual sterile fashion and wi th a local anesthetic, a dermatotomy was made with an 11 blade scalpel. A 6 [place] [id number] ca theter was introduced into the peritoneal cavity and fluid was collected. The patient tolerated the procedure well and left the ultrasound suite in stable condition. CONCLUSION: Uncomplicated ultrasound guided paracentesis. Ralph Patel MD on October 28, 2017 at 11:58 Board Certified Radiologist. This report was verified electronically.
[2017-10-28] MEDS ORDERED: LIDOCAINE HCL 1% 20 ML VIAL ONE (15:29)
== END 2017-10-28 12:05 | disposition home or self-care (01) ==
LOC: HRAD 09:55 → HRIP 09:59 → HRAD 12:05
PROVIDERS: ATTEND Obstetrics & Gynecology Gynecologic Oncology
DX: R18.8 Other ascites (principal)
CPT/HCPCS: 49083; C1729

== ENCOUNTER 2017-11-04 12:50 | Day surgery (SDC) | payer MEDICARE, BC ==
--- NOTE | 2017-11-04 14:19 | RADRPT ---
EXAM DATE/TIME: 11/04/2017 13:00 [facility] COMPARISON: US ABDOMEN - LOWER LIMITED, September 30, 2017, 14:34. INDICATIONS : Evaluate for ascites. MEDICAL HISTORY : Hypertension. Gastroesophageal reflux disease. Melanoma. Ovarian cancer. SURGICAL HISTORY : Port placement. Chemotherapy. ENCOUNTER: Initial ACUITY: 1 day PAIN SCORE: 4/10 LOCATION: Bilateral lower quadrant AREA EVALUATED: Four quadrant. FINDINGS: Imaging of the abdomen and pelvis was performed to evaluate for ascites for possible paracentesis. A very small pocket of ascitic fluid is seen within the right upper quadrant adjacent to the liver. No other pocket of fluid is observed. The volume of ascitic fluid is small and the patient would not charles efit from a comfort standpoint from drainage of the small pocket. CONCLUSION: Very small volume ascitic fluid. Insufficient volume for safe paracentesis. Giuseppe Leiva Jr., MD on November 04, 2017 at 14:14 Board Certified Radiologist. This report was verified electronically.
== END 2017-11-04 13:25 | disposition home or self-care (01) ==
LOC: HRAD 12:50 → HRIP 12:56 → HRAD 13:25
PROVIDERS: ATTEND Obstetrics & Gynecology Gynecologic Oncology
DX: R18.8 Other ascites (principal); C56.9 Malignant neoplasm of unspecified ovary; I10 Essential (primary) hypertension; K21.9 Gastro-esophageal reflux disease without esophagitis; Z85.820 Personal history of malignant melanoma of skin
CPT/HCPCS: 76705